=== PATIENT | male | born 1945 | race African-American/Black ===

== ENCOUNTER 2016-07-23 17:48 | Inpatient (IN) | payer MEDICARE ==
[~2016-07-23] VITALS: Ht 177.8 cm; Wt 78.0 kg
[~2016-07-23 17:48] MED LIST: ACETAMINOPHEN-1 EAC1 ORAL; ENALAPRIL MALEA10 MG ORAL; GEMFIBROZIL600 MG ORAL; LOVASTATIN20 MG ORAL; METFORMIN HCL1000 M1 ORAL; OXYCODONE HCL15 M1 ORAL
[2016-07-23 18:23] VITALS: BP 173/100
[2016-07-23 19:06] LABS: BASOPHILS % (AUTO) 1.3 % (0.0-2.0); EOSINOPHILS % (AUTO) 0.8 % (0.0-3.0); LYMPHOCYTES % (AUTO) 14.2 % (20.0-45.0); MEAN CORPUSCULAR HEMOGLOBIN 28.8 PG (27.0-31.0); MEAN CORPUSCULAR HGB CONC 31.5 G/DL (32.0-36.0); MEAN CORPUSCULAR VOLUME 92 FL (80-99); MEAN PLATELET VOLUME 6.3 FL (6.5-10.1); MONOCYTES % (AUTO) 6.9 % (1.0-10.0); NEUTROPHILS % (AUTO) 76.9 % (45.0-75.0); PLATELET COUNT 181 K/UL (150-450); RED CELL DISTRIBUTION WIDTH 14.2 % (11.6-14.8); WHITE BLOOD COUNT 6.5 K/UL (4.8-10.8)
[2016-07-23 19:21] LABS: TROPONIN I < 0.30 ng/mL (<=0.30)
[2016-07-23 19:24] LABS: ALANINE AMINOTRANSFERASE 59 U/L (3-41); ALBUMIN/GLOBULIN RATIO 0.6 (1.0-2.7); ANION GAP 14 (5-15); ASPARTATE AMINO TRANSFERASE 96 U/L (5-40); CALCIUM 8.9 mg/dL (8.6-10.2); CARBON DIOXIDE 23 mEQ/L (20-30); CHLORIDE 100 mEQ/L (98-107); CREATININE 1.9 mg/dL (0.7-1.2); HEMOLYSIS 20; POTASSIUM 5.8 mEQ/L (3.4-4.9); SODIUM 137 mEQ/L (135-145); TOTAL PROTEIN 6.9 g/dL (6.6-8.7)
[2016-07-23 19:36] LABS: CKMB 2.4 ng/mL (< 6.7)
[2016-07-23] MEDS ORDERED: Calcium Gluconate 1gm/10ml vial IVP ONE (20:00)
[2016-07-23] MEDS ORDERED: Sodium Polystyrene Sulfonate 15gm Powder ORAL ONE (20:00)
--- NOTE | 2016-07-23 20:05 | Emergency Room Report ---
History of Present Illness General Chief Complaint: Generalized Weakness Source: Patient (GUERDA TIPTON M.D.) Present Illness HPI 71-year-old male presents to ED for weakness. States the last month he's been feeling increasingly more weak. States he feels too weak to get up at times. States he had a hard time getting out of bed this morning. Denies any chest pain or shortness of breath. Denies any fevers or chills. States he is eating well and drinking well. History of hep C but is currently not started on medication yet. No other aggravating or relieving factors. Denies any other associated symptoms (GUERDA TIPTON M.D.) Allergies: Coded Allergies: PENICILLINS (Verified Allergy, Intermediate, 12/06/15) Patient History Past Medical History: DM, other - Hep C Past Surgical History: none Pertinent Family History: none Social History: Denies: alcohol use, drug use, smoking Immunizations: UTD Reviewed Nursing Documentation: PMH: Agreed, PSxH: Agreed (GUERDA TIPTON M.D.) Nursing Documentation-PMH Hx Cardiac Problems: No Hx Diabetes: Yes Hx Cancer: No Hx Gastrointestinal Problems: Yes - HEP C, HEPATOMEGALLY Hx Neurological Problems: No (GUERDA TIPTON M.D.) Review of Systems All Other Systems: negative except mentioned in HPI (GUERDA TIPTON M.D.) Physical Exam Vital Signs Date Time Temp Pulse Resp B/P Pulse Ox O2 Delivery O2 Flow Rate FiO2 07/23/16 18:11 97.3 108 20 168/97 99 Room Air Sp02 EP Interpretation: reviewed, normal General Appearance: no apparent distress, alert, GCS 15, non-toxic Head: normocephalic, atraumatic Eyes: bilateral eye PERRL, bilateral eye normal inspection ENT: hearing grossly normal, normal pharynx, no angioedema, normal voice Neck: full range of motion, supple/symm/no masses Respiratory: chest non-tender, lungs clear, normal breath sounds, speaking full sentences Cardiovascular #1: regular rate, rhythm, no edema Cardiovascular #2: 2+ carotid (R), 2+ carotid (L), 2+ radial (R), 2+ radial (L) , 2+ dorsalis pedis (R), 2+ dorsalis pedis (L) Gastrointestinal: normal bowel sounds, non tender, soft, non-distended, no guarding, no rebound Rectal: deferred Genitourinary: normal inspection, no CVA tenderness Musculoskeletal: back normal, gait/station normal, normal range of motion, non- tender Neurologic: alert, oriented x3, responsive, motor strength/tone normal, sensory intact, speech normal Psychiatric: judgement/insight normal, memory normal, mood/affect normal, no suicidal/homicidal ideation Reflexes: 3+ bicep (R), 3+ bicep (L), 3+ tricep (R), 3+ tricep (L), 3+ knee (R) , 3+ knee (L) Skin: normal color, no rash, warm/dry, well hydrated Lymphatic: no adenopathy (GUERDA TIPTON M.D.) Medical Decision Making Diagnostic Impression: Primary Impression: Hyperkalemia, diminished renal excretion Additional Impressions: ARF (acute renal failure) Qualified Codes: N17.9 - Acute kidney failure, unspecified CHF (congestive heart failure) Qualified Codes: I50.9 - Heart failure, unspecified Labs Test 07/23/16 18:50 White Blood Count 6.5 K/UL (4.8-10.8) Red Blood Count 5.00 M/UL (4.70-6.10) Hemoglobin 14.4 G/DL (14.2-18.0) Hematocrit 45.7 % (42.0-52.0) Mean Corpuscular Volume 92 FL (80-99) Mean Corpuscular Hemoglobin 28.8 PG (27.0-31.0) Mean Corpuscular Hemoglobin Concent 31.5 G/DL (32.0-36.0) Red Cell Distribution Width 14.2 % (11.6-14.8) Platelet Count 181 K/UL (150-450) Mean Platelet Volume 6.3 FL (6.5-10.1) Neutrophils (%) (Auto) 76.9 % (45.0-75.0) Lymphocytes (%) (Auto) 14.2 % (20.0-45.0) Monocytes (%) (Auto) 6.9 % (1.0-10.0) Eosinophils (%) (Auto) 0.8 % (0.0-3.0) Basophils (%) (Auto) 1.3 % (0.0-2.0) Sodium Level 137 mEQ/L (135-145) Potassium Level 5.8 mEQ/L (3.4-4.9) Chloride Level 100 mEQ/L (98-107) Carbon Dioxide Level 23 mEQ/L (20-30) Anion Gap 14 (5-15) Blood Urea Nitrogen 40 mg/dL (7-23) Creatinine 1.9 mg/dL (0.7-1.2) Estimat Glomerular Filtration Rate mL/min (>60) Glucose Level 171 mg/dL (74-106) Calcium Level 8.9 mg/dL (8.6-10.2) Total Bilirubin 0.4 mg/dL (0.0-1.2) Aspartate Amino Transf (AST/SGOT) 96 U/L (5-40) Alanine Aminotransferase (ALT/SGPT) 59 U/L (3-41) Alkaline Phosphatase 423 U/L (40-129) Total Creatine Kinase 41 U/L (38-174) Creatine Kinase MB 2.4 ng/mL (< 6.7) Creatine Kinase MB Relative Index 5.8 Troponin I < 0.30 ng/mL (<=0.30) Pro-B-Type Natriuretic Peptide 3655 pg/mL (0-125) Total Protein 6.9 g/dL (6.6-8.7) Albumin 2.8 g/dL (3.5-5.2) Globulin 4.1 g/dL Albumin/Globulin Ratio 0.6 (1.0-2.7) (GUERDA TIPTON M.D.) ER Course pt s/o to me. He presented with weakness. labs significant for JERARDO, hyperkalemia. pt approved for admission here. I contacted Dr. Herbert for admission. (LAKIA ZARAGOZA M.D.) EKG Diagnostic Results EKG Time: 20:04 Rate: normal Rhythm: NSR ST Segments: other - peaked t waves ASA given to the pt in ED: No (GUERDA TIPTON M.D.) Rhythm Strip Diag. Results EP Interpretation: yes Rhythm: NSR, no PVC's, no ectopy (GUERDA TIPTON M.D.) Chest X-Ray Diagnostic Results Chest X-Ray Ordered: Yes # of Views/Limited/Complete: 1 View Interpretation: no consolidation, no effusion, no pneumothorax, no acute cardiopulmonary disease Indication: Other - weakness Impression: No acute disease Date Electronically Signed: Jul 23, 2016 Time Electronically Signed: 20:04 (GUERDA TIPTON M.D.) Last Vital Signs Date Time Temp Pulse Resp B/P Pulse Ox O2 Delivery O2 Flow Rate FiO2 07/23/16 18:23 97.3 102 23 173/100 99 Room Air Status: improved (GUERDA TIPTON M.D.) Disposition: ADMITTED INPATIENT Condition: Serious Referrals: NON PHYSICIAN (PCP) GUERDA TIPTON M.D. Jul 23, 2016 20:05 LAKIA ZARAGOZA M.D. Jul 23, 2016 20:41
[2016-07-23 20:23] VITALS: BP 178/89
[2016-07-23 22:10] VITALS: BP 12/88
[2016-07-23 22:20] VITALS: BP 175/80
[2016-07-23] MEDS ORDERED: Zolpidem 5mg tab ORAL PRN (22:45)
[2016-07-24] VITALS: BP 151/90
[2016-07-24 04:00] VITALS: BP 156/94
[2016-07-24] MEDS: NovoLOG Insulin Flexpen SUBQ SCH ×4 (06:13→21:05)
[2016-07-24 08:00] VITALS: BP 141/71
[2016-07-24 08:24] LABS: BASOPHILS % (AUTO) 1.3 % (0.0-2.0); EOSINOPHILS % (AUTO) 0.9 % (0.0-3.0); LYMPHOCYTES % (AUTO) 13.4 % (20.0-45.0); MEAN CORPUSCULAR HEMOGLOBIN 28.2 PG (27.0-31.0); MEAN CORPUSCULAR HGB CONC 31.3 G/DL (32.0-36.0); MEAN CORPUSCULAR VOLUME 90 FL (80-99); MEAN PLATELET VOLUME 6.6 FL (6.5-10.1); NEUTROPHILS % (AUTO) 77.5 % (45.0-75.0); PLATELET COUNT 198 K/UL (150-450); RED BLOOD COUNT 4.32 M/UL (4.70-6.10); RED CELL DISTRIBUTION WIDTH 14.3 % (11.6-14.8); WHITE BLOOD COUNT 6.5 K/UL (4.8-10.8)
[2016-07-24] MEDS ORDERED: 1/2 NS 1000ml IV ONE (08:36)
[2016-07-24 08:45] LABS: ANION GAP 15 (5-15); CALCIUM 8.7 mg/dL (8.6-10.2); CARBON DIOXIDE 22 mEQ/L (20-30); CHLORIDE 98 mEQ/L (98-107); CREATININE 1.6 mg/dL (0.7-1.2); HEMOLYSIS 1; POTASSIUM 4.5 mEQ/L (3.4-4.9); SODIUM 135 mEQ/L (135-145)
[2016-07-24 09:23] LABS: APPEARANCE,URINE CLEAR; KETONES,URINE NEGATIVE (NEGATIVE); LEUKOCYTE ESTERASE ,URINE NEGATIVE (NEGATIVE); NITRITE,URINE NEGATIVE (NEGATIVE); PH,URINE 5 (4.5-8.0); PROTEIN,URINE 4+ (NEGATIVE); UROBILINOGEN,URINE NORMAL MG/DL (0.0-1.0)
[2016-07-24 09:42] LABS: AMORPHOUS SEDIMENT,UR OCCASIONAL /LPF; BACTERIA,URINE FEW /HPF; RBC,URINE 0-2 /HPF (0 - 0); SQUAMOUS EPITHELIAL CELL,UR OCCASIONAL /LPF (NONE/OCC); WBC,URINE 0-2 /HPF (0 - 0)
[2016-07-24] MEDS: Heparin 5000 units/ml inj SUBQ SCH ×2 (09:54→21:06)
--- NOTE | 2016-07-24 10:47 | Diagnostic Imaging Report ---
Indication: Chest Pain Comparison: None A single view chest radiograph was obtained. Findings: Cardiomediastinal appearance is within normal limits for age. Pulmonary vascularity is appropriate. The diaphragmatic contour is smooth and costophrenic angles are sharp. No pleural effusions are identified. The bones are osteopenic. Impression: No acute findings
[2016-07-24 11:40] VITALS: BP 144/80
[2016-07-24 16:00] VITALS: BP 163/86
[2016-07-24 19:53] VITALS: BP 163/83
[2016-07-24] MEDS: HYDROmorphone 2mg tab ORAL PRN (20:55)
--- NOTE | 2016-07-24 22:22 | History and Physical ---
History of Present Illness General Date patient seen: Jul 24, 2016 Reason for Hospitalization: Generalized Weakness Present Illness HPI 71-year-old male with PMH for DM and Hepatitis C who presented to the ED c/o weakness. He states the last month he's been feeling increasingly more weak. He reported that he had a hard time getting out of bed yesterday morning. Denies any chest pain or shortness of breath. Denies any fevers or chills. Denies any changes in appetite. No other aggravating or relieving factors. Denies any other associated symptoms. In the ED, he had some renal insufficiency and hyperkalemia. He was admitted for further management. Allergies: Coded Allergies: PENICILLINS (Verified Allergy, Intermediate, 12/06/15) Medication History Scheduled Enalapril Maleate* (Enalapril Maleate*), 10 MG ORAL DAILY, (Reported) Gemfibrozil (Gemfibrozil*), 600 MG ORAL TWICE A DAY, (Reported) Lovastatin (Lovastatin), 20 MG ORAL BEDTIME, (Reported) Metformin Hcl* (Metformin Hcl*), 1,000 MG ORAL TWICE A DAY, (Reported) Scheduled PRN Acetaminophen With Codeine (T#3) (Tylenol #3 Tab*), 1 TAB ORAL BID PRN for For Pain, (Reported) Patient History History Provided By: Patient Healthcare decision maker Resuscitation status Full Code Advanced Directive on File No Past Medical/Surgical History Past Medical/Surgical History: (1) DM (diabetes mellitus) Review of Systems All Other Systems: negative except mentioned in HPI Physical Exam General Appearance: WD/WN, no apparent distress HEENT: normocephalic, atraumatic Neck: supple Respiratory/Chest: lungs clear Cardiovascular/Chest: normal rate, regular rhythm Abdomen: non tender, soft Extremities: no edema Neurologic: alert, oriented x 3 Last 24 Hour Vital Signs Date Time Temp Pulse Resp B/P Pulse Ox O2 Delivery O2 Flow Rate FiO2 07/24/16 20:00 97 07/24/16 19:53 97.5 97 20 163/83 99 Room Air 07/24/16 17:05 163/86 07/24/16 16:00 97.9 98 18 163/86 100 Room Air 07/24/16 16:00 101 07/24/16 11:40 97.5 99 18 144/80 Room Air 07/24/16 11:21 102 07/24/16 09:00 141/71 07/24/16 08:00 96.8 101 18 141/71 Room Air 07/24/16 08:00 101 07/24/16 04:00 103 07/24/16 04:00 97.9 106 20 156/94 Room Air 07/24/16 00:00 106 07/24/16 00:00 98.2 107 18 151/90 100 Nasal Cannula 2.0 07/23/16 22:30 103 Intake and Output 07/23/16 07/24/16 19:00 07:00 Intake Total 240 ml 725 ml Output Total 1500 ml Balance 240 ml -775 ml Intake Oral 240 ml IV Total 525 ml Other 200 ml Output Urine Total 1500 ml # Bowel Movements 1 Laboratory Tests Test 07/24/16 00:00 07/24/16 07:40 Urine Color Yellow Urine Appearance Clear Urine pH 5 (4.5-8.0) Urine Specific [place] 1.020 (1.005-1.035) Urine Protein 4+ (NEGATIVE) H Urine Glucose (UA) 2+ (NEGATIVE) H Urine Ketones Negative (NEGATIVE) Urine Occult Blood Negative (NEGATIVE) Urine Nitrite Negative (NEGATIVE) Urine Bilirubin Negative (NEGATIVE) Urine Urobilinogen Normal MG/DL (0.0-1.0) Urine Leukocyte Esterase Negative (NEGATIVE) Urine RBC 0-2 /HPF (0 - 0) H Urine WBC 0-2 /HPF (0 - 0) Urine Squamous Epithelial Cells Occasional /LPF Urine Amorphous Sediment Occasional /LPF (NONE) Urine Bacteria Few /HPF (NONE) Urine Opiates Screen Positive (NEGATIVE) H Urine Barbiturates Screen Negative (NEGATIVE) Phencyclidine (PCP) Screen Negative (NEGATIVE) Urine Amphetamines Screen Negative (NEGATIVE) Urine Benzodiazepines Screen Negative (NEGATIVE) Urine Cocaine Screen Negative (NEGATIVE) Urine Marijuana (THC) Screen Negative (NEGATIVE) White Blood Count 6.5 K/UL (4.8-10.8) Red Blood Count 4.32 M/UL (4.70-6.10) L Hemoglobin 12.2 G/DL (14.2-18.0) L Hematocrit 38.9 % (42.0-52.0) L Mean Corpuscular Volume 90 FL (80-99) Mean Corpuscular Hemoglobin 28.2 PG (27.0-31.0) Mean Corpuscular Hemoglobin Concent 31.3 G/DL (32.0-36.0) L Red Cell Distribution Width 14.3 % (11.6-14.8) Platelet Count 198 K/UL (150-450) Mean Platelet Volume 6.6 FL (6.5-10.1) Neutrophils (%) (Auto) 77.5 % (45.0-75.0) H Lymphocytes (%) (Auto) 13.4 % (20.0-45.0) L Monocytes (%) (Auto) 7.0 % (1.0-10.0) Eosinophils (%) (Auto) 0.9 % (0.0-3.0) Basophils (%) (Auto) 1.3 % (0.0-2.0) Sodium Level 135 mEQ/L (135-145) Potassium Level 4.5 mEQ/L (3.4-4.9) Chloride Level 98 mEQ/L (98-107) Carbon Dioxide Level 22 mEQ/L (20-30) Anion Gap 15 (5-15) Blood Urea Nitrogen 38 mg/dL (7-23) H Creatinine 1.6 mg/dL (0.7-1.2) H Estimat Glomerular Filtration Rate mL/min (>60) Glucose Level 166 mg/dL (74-106) H Calcium Level 8.7 mg/dL (8.6-10.2) Thyroid Stimulating Hormone (TSH) 1.030 uIU/mL (0.300-4.500) Height (Feet): 5 Height (Inches): 10.00 Weight (Pounds): 159 Medications Current Medications Medications (Trade) Dose Ordered Sig/Cammy Route PRN Reason Start Time Stop Time Status Last Admin Dose Admin Acetaminophen (Tylenol) 650 mg Q4H PRN ORAL Mild Pain (Pain Scale 1-3) 07/23/16 22:45 08/22/16 22:44 Dextrose (Dextrose 50%) STAT PRN IV Hypoglycemia 07/23/16 22:45 08/22/16 22:44 Diphenhydramine HCl (Benadryl) 25 mg Q6H PRN ORAL Itching/Pruritis 07/23/16 22:45 08/22/16 22:44 Enalapril Maleate (Vasotec) 10 mg BID ORAL 07/24/16 09:00 08/23/16 08:59 07/24/16 17:05 Gemfibrozil 600 mg 600 mg TWICE A DAY ORAL 07/24/16 09:00 08/23/16 08:59 07/24/16 17:05 Heparin Sodium (Porcine) (Heparin 5000 units/ml) 5,000 units EVERY 12 HOURS SUBQ 07/24/16 09:00 08/23/16 08:59 07/24/16 21:06 Hydromorphone HCl (Dilaudid) 2 mg Q6HR PRN ORAL for severe pain 07/24/16 20:45 07/31/16 20:44 07/24/16 20:55 Insulin Aspart (NovoLOG) BEFORE MEALS AND HS SUBQ 07/24/16 06:30 08/23/16 06:29 07/24/16 21:05 Losartan Potassium (Cozaar) 50 mg Q12H PRN ORAL For High Blood Pressure 07/24/16 07:15 08/23/16 07:14 Ondansetron HCl (Zofran) 4 mg Q6H PRN IVP Nausea & Vomiting 07/23/16 22:45 08/22/16 22:44 Sodium Chloride (0.45% NS 1000ml) 1,000 ml @ 75 mls/hr [id number] IV 07/23/16 22:45 08/22/16 22:44 07/24/16 12:41 Zolpidem Tartrate (Ambien) 5 mg DAILYPRN PRN ORAL Insomnia 07/23/16 22:45 08/22/16 22:44 Assessment/Plan Problem List: (1) DM (diabetes mellitus) ICD Codes: E11.9 - Type 2 diabetes mellitus without complications SNOMED: 37315360 (2) Hyperkalemia, diminished renal excretion ICD Codes: E87.5 - Hyperkalemia SNOMED: 96070155 (3) ARF (acute renal failure) ICD Codes: N17.9 - Acute kidney failure, unspecified SNOMED: 22327466 Qualifiers: Qualified Codes: N17.9 - Acute kidney failure, unspecified (4) CHF (congestive heart failure) Assessment & Plan: ??? elev BNP. f/u CXR. ICD Codes: I50.9 - Heart failure, unspecified SNOMED: 73860361 Qualifiers: Qualified Codes: I50.9 - Heart failure, unspecified Assessment/Plan Cardio eval. IVF. Monitor renal function. ABD U/S to eval liver given hx of hep C and elev LFT's. Accucheck with SSI. DVT ppx. Resume home meds. Hold metformin due to elev Cr. EV NG Jul 24, 2016 22:22
[2016-07-24 23:27] LABS: ALANINE AMINOTRANSFERASE 58 U/L (3-41); ALBUMIN/GLOBULIN RATIO 0.6 (1.0-2.7); ANION GAP 17 (5-15); ASPARTATE AMINO TRANSFERASE 100 U/L (5-40); CALCIUM 8.3 mg/dL (8.6-10.2); CARBON DIOXIDE 20 mEQ/L (20-30); CHLORIDE 98 mEQ/L (98-107); CREATININE 1.6 mg/dL (0.7-1.2); HEMOLYSIS 3; POTASSIUM 4.5 mEQ/L (3.4-4.9); SODIUM 135 mEQ/L (135-145); TOTAL PROTEIN 5.9 g/dL (6.6-8.7)
[2016-07-25] VITALS (7 sets, daily range): BP systolic 133–174; BP diastolic 83–95
[2016-07-25] MEDS: NovoLOG Insulin Flexpen SUBQ SCH ×4 (06:30→19:58)
[2016-07-25] MEDS: Heparin 5000 units/ml inj SUBQ SCH ×2 (08:09→19:59)
[2016-07-25] MEDS: HYDROmorphone 2mg tab ORAL PRN (19:46)
[2016-07-25] MEDS: Losartan 50mg tab ORAL PRN (19:47)
--- NOTE | 2016-07-25 21:44 | Nephrology Progress Note ---
Assessment/Plan Problem List: (1) CHF (congestive heart failure) (2) Anemia (3) DM (diabetes mellitus) (4) ARF (acute renal failure) (5) Ascites (6) Cirrhosis (7) Cholelithiasis Plan GI consult Avoid nephrotoxic agents Monitor renal function Adequate urine output Monitor lytes, correct PRN DVT prophylaxis with heparin Continue current treatment Monitor vitals Pain mgt AM labs Subjective Constitutional: Denies: chills, diaphoresis, fever, malaise, no symptoms, other , weakness HEENT: Denies: blurred vision, double vision, ear discharge, ear pain, eye pain , mouth pain, mouth swelling, no symptoms, nose congestion, nose pain, other, tearing, throat pain, throat swelling Genitourinary: Denies: burning, discharge, flank pain, frequency, hematuria, incontinence, no symptoms, other, pain, urgency Neurologic/Psychiatric: Denies: anxiety, depressed, emotional problems, headache, no symptoms, numbness, other, paresthesia, pre-existing deficit, seizure, tingling, tremors, weakness Subjective In bed, in no apparent distress, denies discomfort at this time Objective Objective Last 24 Hour Vital Signs Date Time Temp Pulse Resp B/P Pulse Ox O2 Delivery O2 Flow Rate FiO2 07/25/16 20:02 97.5 94 18 174/95 99 Room Air 07/25/16 20:00 100 07/25/16 19:47 174/95 07/25/16 17:27 146/86 07/25/16 16:00 103 07/25/16 15:24 96.3 101 20 146/86 100 Room Air 07/25/16 13:00 133/83 07/25/16 12:00 100 07/25/16 11:28 97.2 97 20 172/90 97 Room Air 07/25/16 08:08 157/84 07/25/16 08:00 94 07/25/16 07:51 96.7 98 20 157/84 100 Room Air 07/25/16 04:17 98.1 98 20 165/89 100 Room Air 07/25/16 04:00 99 07/25/16 00:27 98.0 99 20 169/93 99 Room Air 07/25/16 00:00 96 Intake and Output 07/24/16 07/25/16 19:00 07:00 Intake Total 1392.5 ml Output Total 860 ml 500 ml Balance 532.5 ml -500 ml Intake Oral 680 ml IV Total 712.5 ml Output Urine Total 860 ml 500 ml # Voids 4 2 Laboratory Tests 07/24/16 22:45: Sodium Level 135, Potassium Level 4.5, Chloride Level 98, Carbon Dioxide Level 20, Anion Gap 17H, Blood Urea Nitrogen 41H, Creatinine 1.6H, Estimat Glomerular Filtration Rate , Glucose Level 149H, Calcium Level 8.3L, Total Bilirubin 0.4, Aspartate Amino Transf (AST/SGOT) 100H, Alanine Aminotransferase (ALT/SGPT) 58H , Alkaline Phosphatase 399H, Total Protein 5.9L, Albumin 2.3L, Globulin 3.6, Albumin/Globulin Ratio 0.6L Height (Feet): 5 Height (Inches): 10.00 Weight (Pounds): 164 General Appearance: no apparent distress EENT: normal ENT inspection Neck: normal alignment, supple Cardiovascular: normal rate, regular rhythm Respiratory/Chest: lungs clear Abdomen: hypoactive bowel sounds, distended Extremities: no calf tenderness Neurologic: alert, oriented x 3, responsive, normal mood/affect Paige Bhardwaj N.P. Jul 25, 2016 21:44
--- NOTE | 2016-07-25 23:48 | Nephrology Progress Note ---
Assessment/Plan Problem List: (1) DM (diabetes mellitus) (2) Hyperkalemia, diminished renal excretion (3) ARF (acute renal failure) (4) CHF (congestive heart failure) Assessment: ??? elev BNP. f/u CXR. Objective Objective Last 24 Hour Vital Signs Date Time Temp Pulse Resp B/P Pulse Ox O2 Delivery O2 Flow Rate FiO2 07/25/16 20:02 97.5 94 18 174/95 99 Room Air 07/25/16 20:00 100 07/25/16 19:47 174/95 07/25/16 17:27 146/86 07/25/16 16:00 103 07/25/16 15:24 96.3 101 20 146/86 100 Room Air 07/25/16 13:00 133/83 07/25/16 12:00 100 07/25/16 11:28 97.2 97 20 172/90 97 Room Air 07/25/16 08:08 157/84 07/25/16 08:00 94 07/25/16 07:51 96.7 98 20 157/84 100 Room Air 07/25/16 04:17 98.1 98 20 165/89 100 Room Air 07/25/16 04:00 99 07/25/16 00:27 98.0 99 20 169/93 99 Room Air 07/25/16 00:00 96 Intake and Output 07/24/16 07/25/16 19:00 07:00 Intake Total 1392.5 ml Output Total 860 ml 500 ml Balance 532.5 ml -500 ml Intake Oral 680 ml IV Total 712.5 ml Output Urine Total 860 ml 500 ml # Voids 4 2 Height (Feet): 5 Height (Inches): 10.00 Weight (Pounds): 164 EV NG Jul 25, 2016 23:48
[2016-07-26 00:02] VITALS: BP 179/95
[2016-07-26 04:04] VITALS: BP 173/96
[2016-07-26] MEDS: NovoLOG Insulin Flexpen SUBQ SCH ×4 (06:21→20:35)
[2016-07-26 07:31] LABS: BASOPHILS % (AUTO) 1.3 % (0.0-2.0); EOSINOPHILS % (AUTO) 1.2 % (0.0-3.0); LYMPHOCYTES % (AUTO) 16.2 % (20.0-45.0); MEAN CORPUSCULAR HEMOGLOBIN 28.7 PG (27.0-31.0); MEAN CORPUSCULAR HGB CONC 31.8 G/DL (32.0-36.0); MEAN CORPUSCULAR VOLUME 90 FL (80-99); MEAN PLATELET VOLUME 6.7 FL (6.5-10.1); MONOCYTES % (AUTO) 7.9 % (1.0-10.0); NEUTROPHILS % (AUTO) 73.5 % (45.0-75.0); PLATELET COUNT 178 K/UL (150-450); RED BLOOD COUNT 4.44 M/UL (4.70-6.10); RED CELL DISTRIBUTION WIDTH 14.5 % (11.6-14.8); WHITE BLOOD COUNT 5.3 K/UL (4.8-10.8)
[2016-07-26 07:45] LABS: ANION GAP 13 (5-15); CALCIUM 8.8 mg/dL (8.6-10.2); CARBON DIOXIDE 22 mEQ/L (20-30); CHLORIDE 100 mEQ/L (98-107); CREATININE 1.5 mg/dL (0.7-1.2); HEMOLYSIS 2; POTASSIUM 5.3 mEQ/L (3.4-4.9); SODIUM 135 mEQ/L (135-145)
[2016-07-26 07:56] VITALS: BP 158/95
[2016-07-26] MEDS: Heparin 5000 units/ml inj SUBQ SCH ×2 (08:07→20:33)
--- NOTE | 2016-07-26 09:45 | Diagnostic Imaging Report ---
Indication: Abdominal distention, hepatitis C Technique: Corona-scale and duplex images of the upper abdomen were obtained Comparison: None Findings: There is a small amount of ascites fluid Gallbladder demonstrates gallstones. Gallbladder is nondistended. Gallbladder wall is thickened, measures 7 mm in thickness. Technologist reports sonographic Gonzalez's sign is positive, however. Common bile duct measures 5 mm in diameter. No intrahepatic biliary ductal dilatation. Liver demonstrates heterogeneous echogenicity with some surface nodularity. Is enlarged. A calcification is seen within the left hepatic lobe. Portal vein and hepatic veins are patent. Pancreas is unremarkable. The spleen is enlarged, measures 17 cm long axis dimension Left kidney measures 10.3 cm in length. Right kidney measures 10.4 cm length. Both kidneys demonstrate normal echogenicity. There is no hydronephrosis. There are bilateral renal cysts . Abdominal aorta is partially obscured by bowel gas, visualized portions are non-aneurysmal . Impression: Coarsened hepatic echogenicity, surface nodularity suggest cirrhosis. This is also described on prior CT scan of 12/06/2015 Ascites, likely related to the above Splenomegaly, likely secondary to portal hypertension related to the above Cholelithiasis. Gallbladder wall thickening is probably due to a combination of under distention and hemodynamic abnormalities causing ascites. However, technologist reports sonographic Gonzalez's sign is positive. This raises the possibility of acute cholecystitis. Consider nuclear medicine hepatobiliary scan for further evaluation if there is high clinical suspicion Bilateral renal cysts Note suboptimal visualization of the distal abdominal aorta
--- NOTE | 2016-07-26 10:19 | Diagnostic Imaging Report ---
Indications: Chest pain Technique: Portable AP chest Findings: Comparison: 07/23/2016 Inspiratory effort remains suboptimal. Linear densities persist in both lung bases. 4 cm ovoid opacity persists in the right infrahilar region. No new pulmonary parenchymal or pleural abnormalities are identified. Cardiomediastinal silhouette stable. IMPRESSION: Persistent ovoid opacity right infrahilar region may simply represent summation artifact. Lung mass or other overlying mass not excludable. Consider contrast-enhanced CT scan the thorax for further evaluation Stable pulmonary bibasal subsegmental atelectasis versus scarring No new abnormality identified
[2016-07-26] MEDS: HYDROmorphone 2mg tab ORAL PRN (11:03)
[2016-07-26 11:49] VITALS: BP 146/86
[2016-07-26 14:16] LABS: PROTHROMBIN TIME 10.2 SEC (9.30-11.50)
[2016-07-26 15:43] VITALS: BP 157/73
--- NOTE | 2016-07-26 16:00 | GI Initial Consult Note ---
Verito Darby N.PAnkit 07/26/16 1600: History of Present Illness General Date patient seen: Jul 26, 2016 Time patient seen: 13:00 Reason for Hospitalization: Generalized Weakness Referring physician: EV NG Reason for Consultation: CIRRHOSIS Present Illness HPI 71-year-old male presents to ED for weakness. States the last month he's been feeling increasingly more weak. States he feels too weak to get up at times. States he had a hard time getting out of bed this morning. Denies any chest pain or shortness of breath. Denies any fevers or chills. States he is eating well and drinking well. History of hep C but is currently not started on medication yet. No other aggravating or relieving factors. Denies any other associated symptoms. GI CONSULT. HPI as noted above. GI consulted for abnormal LFTs. Pt seen on floor, awake A&Ox4 NAD with no active s/sx of N/V/D. Pt presents today with hypoalbuminemia, abnormal LFTs, suggestive cirrhosis based on abdominal U/S with ascites. Hx of Hep C. The patient denies any use of ETOH for the past 20 + years. Abdomen is distended with noted ascites. According to the patient, she has been in the process to receive outpatient Hep C treatment. Recent colonoscopy performed at [facility]. Home Meds Reported Medications Acetaminophen With Codeine (T#3) (TYLENOL #3 TAB*) Y Tab, 1 TAB ORAL BID Y for For Pain, #30 TAB 12/08/15 Lovastatin (LOVASTATIN) 20 Mg Tablet, 20 MG ORAL BEDTIME, #30 TAB 0 Refills 12/06/15 Enalapril Maleate* (ENALAPRIL MALEATE*) 10 Mg Tablet, 10 MG ORAL DAILY, TAB 12/06/15 Gemfibrozil (GEMFIBROZIL*) 600 Mg Tablet, 600 MG ORAL TWICE A DAY, TAB 0 Refills 12/06/15 Metformin Hcl* (METFORMIN HCL*) 1,000 Mg Tablet, 1000 MG ORAL TWICE A DAY, TAB 12/06/15 Med list reviewed/reconciled: Yes Allergies: Coded Allergies: PENICILLINS (Verified Allergy, Intermediate, 12/06/15) Patient History History Provided By: Patient, Medical Record [facility] Narrative Past Medical History: DM, other - Hep C Past Surgical History: none Pertinent Family History: none Social History: Denies: alcohol use, drug use, smoking Immunizations: UTD Reviewed Nursing Documentation: PMH: Agreed, PSxH: Agreed Nursing Documentation-PMH Hx Cardiac Problems: No Hx Diabetes: Yes Hx Cancer: No Hx Gastrointestinal Problems: Yes - HEP C, HEPATOMEGALLY Hx Neurological Problems: No Review of Systems All Other Systems: negative except mentioned in HPI Physical Exam Vital Signs Date Time Temp Pulse Resp B/P Pulse Ox O2 Delivery O2 Flow Rate FiO2 07/23/16 18:11 97.3 108 20 168/97 99 Room Air 07/24/16 00:00 2.0 Sp02 EP Interpretation: reviewed Labs Laboratory Tests Test 07/26/16 06:45 07/26/16 13:49 White Blood Count 5.3 K/UL (4.8-10.8) Red Blood Count 4.44 M/UL (4.70-6.10) L Hemoglobin 12.7 G/DL (14.2-18.0) L Hematocrit 40.1 % (42.0-52.0) L Mean Corpuscular Volume 90 FL (80-99) Mean Corpuscular Hemoglobin 28.7 PG (27.0-31.0) Mean Corpuscular Hemoglobin Concent 31.8 G/DL (32.0-36.0) L Red Cell Distribution Width 14.5 % (11.6-14.8) Platelet Count 178 K/UL (150-450) Mean Platelet Volume 6.7 FL (6.5-10.1) Neutrophils (%) (Auto) 73.5 % (45.0-75.0) Lymphocytes (%) (Auto) 16.2 % (20.0-45.0) L Monocytes (%) (Auto) 7.9 % (1.0-10.0) Eosinophils (%) (Auto) 1.2 % (0.0-3.0) Basophils (%) (Auto) 1.3 % (0.0-2.0) Sodium Level 135 mEQ/L (135-145) Potassium Level 5.3 mEQ/L (3.4-4.9) H Chloride Level 100 mEQ/L (98-107) Carbon Dioxide Level 22 mEQ/L (20-30) Anion Gap 13 (5-15) Blood Urea Nitrogen 36 mg/dL (7-23) H Creatinine 1.5 mg/dL (0.7-1.2) H Estimat Glomerular Filtration Rate mL/min (>60) Glucose Level 179 mg/dL (74-106) H Calcium Level 8.8 mg/dL (8.6-10.2) Prothrombin Time 10.2 SEC (9.30-11.50) Prothromb Time International Ratio 1.0 (0.9-1.1) Activated Partial Thromboplast Time 31 SEC (23-33) General Appearance: well appearing, no apparent distress, alert Head: normocephalic EENT: normal ENT inspection Neck: supple Respiratory: normal breath sounds, no respiratory distress Cardiovascular: normal rate Gastrointestinal: soft, distended, ascites Rectal: deferred Genitourinary: no CVA tenderness Musculoskeletal: back normal Neurologic: alert, oriented x3, responsive Psychiatric: normal inspection, judgement/insight normal Skin: normal inspection, normal color, no rash, warm/dry Lymphatic: normal inspection, no adenopathy Current Medications Current Medications Medications (Trade) Dose Ordered Sig/Cammy Route PRN Reason Start Time Stop Time Status Last Admin Dose Admin Acetaminophen (Tylenol) 650 mg Q4H PRN ORAL Mild Pain (Pain Scale 1-3) 07/23/16 22:45 08/22/16 22:44 Dextrose (Dextrose 50%) STAT PRN IV Hypoglycemia 07/23/16 22:45 08/22/16 22:44 Diphenhydramine HCl (Benadryl) 25 mg Q6H PRN ORAL Itching/Pruritis 07/23/16 22:45 08/22/16 22:44 Enalapril Maleate (Vasotec) 10 mg BID ORAL 07/24/16 09:00 08/23/16 08:59 07/26/16 08:05 Gemfibrozil 600 mg 600 mg TWICE A DAY ORAL 07/24/16 09:00 08/23/16 08:59 07/26/16 08:06 Heparin Sodium (Porcine) (Heparin 5000 units/ml) 5,000 units EVERY 12 HOURS SUBQ 07/24/16 09:00 08/23/16 08:59 07/26/16 08:07 Hydromorphone HCl (Dilaudid) 2 mg Q6HR PRN ORAL for severe pain 07/24/16 20:45 07/31/16 20:44 07/26/16 11:03 Insulin Aspart (NovoLOG) BEFORE MEALS AND HS SUBQ 07/24/16 06:30 08/23/16 06:29 07/26/16 12:12 Losartan Potassium (Cozaar) 50 mg Q12H PRN ORAL For High Blood Pressure 07/24/16 07:15 08/23/16 07:14 07/25/16 19:47 Nicotine (Nicoderm) 1 patch Q24H TDERMAL 07/26/16 16:00 08/25/16 15:59 Ondansetron HCl (Zofran) 4 mg Q6H PRN IVP Nausea & Vomiting 07/23/16 22:45 08/22/16 22:44 Sodium Chloride (0.45% NS 1000ml) 1,000 ml @ 75 mls/hr [id number] IV 07/23/16 22:45 08/22/16 22:44 07/26/16 04:44 Zolpidem Tartrate (Ambien) 5 mg DAILYPRN PRN ORAL Insomnia 07/23/16 22:45 08/22/16 22:44 GI: Plan Problems: (1) Hepatitis C (2) Cirrhosis (3) Ascites (4) Anemia (5) DM (diabetes mellitus) (6) Hypoalbuminemia Plan abdominal U/S reviewed >> suggest cirrhosis. Ascites. Sonographic Gonzalez's sign is positive. This raises the possibility of acute cholecystitis. Hx of Hep C ordered paracentesis, r/o SBP - Albumin 25% x 1 one hour prior to paracentesis ordered AFP, ammonia levels for tomorrow fu serum albumin, body fluid albumin to calculate SAAG hold Lasix and Aldactone for now given creatinine fu labs patient needs PCP referral to GI specialist for Hep C tx given HMO Discussed wit Dr. Adame. Thank you for referring this patient, we will follow. CHANDLER ADAME 07/27/16 1004: History of Present Illness General Reason for Hospitalization: Generalized Weakness Present Illness Home Meds Reported Medications Acetaminophen With Codeine (T#3) (TYLENOL #3 TAB*) Y Tab, 1 TAB ORAL BID Y for For Pain, #30 TAB 12/08/15 Lovastatin (LOVASTATIN) 20 Mg Tablet, 20 MG ORAL BEDTIME, #30 TAB 0 Refills 12/06/15 Enalapril Maleate* (ENALAPRIL MALEATE*) 10 Mg Tablet, 10 MG ORAL DAILY, TAB 12/06/15 Gemfibrozil (GEMFIBROZIL*) 600 Mg Tablet, 600 MG ORAL TWICE A DAY, TAB 0 Refills 12/06/15 Metformin Hcl* (METFORMIN HCL*) 1,000 Mg Tablet, 1000 MG ORAL TWICE A DAY, TAB 12/06/15 Allergies: Coded Allergies: PENICILLINS (Verified Allergy, Intermediate, 12/06/15) GI: Plan Plan The patient was seen and examined at bedside and all new and available data was reviewed in the patients chart. I agree with the above findings, impression and plan. (Patient seen earlier today. Signature stamp does not reflect patient encounter time.). -Mone Ybarra MDh Tomas Brewer Jul 26, 2016 16:00 CHANDLER ADAME Jul 27, 2016 10:04
[2016-07-26 20:00] VITALS: BP 149/85
--- NOTE | 2016-07-26 22:09 | Nephrology Progress Note ---
Assessment/Plan Problem List: (1) DM (diabetes mellitus) (2) Hyperkalemia, diminished renal excretion (3) ARF (acute renal failure) (4) CHF (congestive heart failure) Assessment: ??? elev BNP. f/u CXR. (5) Cirrhosis (6) Ascites (7) Hypoalbuminemia (8) Hepatitis C (9) Cholelithiasis (10) Anemia Plan GI following. Pending paracentesis. Albumin being given . F?u GI recs. Needs outpt Hep C treatment per PCP once discharged. d/c IVF. monitor labs. Subjective Subjective no new c/o Objective Objective Last 24 Hour Vital Signs Date Time Temp Pulse Resp B/P Pulse Ox O2 Delivery O2 Flow Rate FiO2 07/26/16 20:00 97.9 106 18 149/85 98 Room Air 07/26/16 20:00 103 07/26/16 17:13 157/73 07/26/16 16:00 99 07/26/16 15:43 97.3 97 18 157/73 100 Room Air 07/26/16 12:00 99 07/26/16 11:49 97.3 97 18 146/86 99 Room Air 07/26/16 08:05 158/95 07/26/16 08:00 99 07/26/16 07:56 97.5 100 18 158/95 98 Room Air 07/26/16 04:04 97.7 98 18 173/96 97 Room Air 07/26/16 04:00 100 07/26/16 00:02 98.1 101 20 179/95 97 Room Air 07/26/16 00:00 101 Intake and Output 07/25/16 07/26/16 19:00 07:00 Intake Total 865 ml 1140 ml Output Total 400 ml Balance 865 ml 740 ml Intake Oral 490 ml 240 ml IV Total 375 ml 900 ml Output Urine Total 400 ml # Voids 1 Laboratory Tests 07/26/16 06:45: White Blood Count 5.3, Red Blood Count 4.44L, Hemoglobin 12.7L, Hematocrit 40.1L , Mean Corpuscular Volume 90, Mean Corpuscular Hemoglobin 28.7, Mean Corpuscular Hemoglobin Concent 31.8L, Red Cell Distribution Width 14.5, Platelet Count 178, Mean Platelet Volume 6.7, Neutrophils (%) (Auto) 73.5, Lymphocytes (%) (Auto) 16.2L, Monocytes (%) (Auto) 7.9, Eosinophils (%) (Auto) 1.2, Basophils (%) (Auto) 1.3, Sodium Level 135, Potassium Level 5.3H, Chloride Level 100, Carbon Dioxide Level 22, Anion Gap 13, Blood Urea Nitrogen 36H, Creatinine 1.5H, Estimat Glomerular Filtration Rate , Glucose Level 179H, Calcium Level 8.8 07/26/16 13:49: Prothrombin Time 10.2, Prothromb Time International Ratio 1.0, Activated Partial Thromboplast Time 31 Height (Feet): 5 Height (Inches): 10.00 Weight (Pounds): 164 General Appearance: no apparent distress Cardiovascular: normal rate, regular rhythm Respiratory/Chest: lungs clear Abdomen: soft, distended Extremities: trace edema Neurologic: alert, oriented x 3 EV NG Jul 26, 2016 22:09
[2016-07-27] VITALS: BP 163/110
[2016-07-27] MEDS: HYDROmorphone 2mg tab ORAL PRN ×2 (03:21→11:55)
[2016-07-27 04:00] VITALS: BP 164/93
[2016-07-27] MEDS: NovoLOG Insulin Flexpen SUBQ SCH ×4 (05:55→20:45)
[2016-07-27 07:52] VITALS: BP 174/89
[2016-07-27 07:58] LABS: BASOPHILS % (AUTO) 1.1 % (0.0-2.0); EOSINOPHILS % (AUTO) 1.4 % (0.0-3.0); LYMPHOCYTES % (AUTO) 13.2 % (20.0-45.0); MEAN CORPUSCULAR HEMOGLOBIN 28.4 PG (27.0-31.0); MEAN CORPUSCULAR HGB CONC 31.6 G/DL (32.0-36.0); MEAN CORPUSCULAR VOLUME 90 FL (80-99); MEAN PLATELET VOLUME 6.7 FL (6.5-10.1); MONOCYTES % (AUTO) 7.9 % (1.0-10.0); NEUTROPHILS % (AUTO) 76.4 % (45.0-75.0); PLATELET COUNT 182 K/UL (150-450); RED BLOOD COUNT 4.21 M/UL (4.70-6.10); RED CELL DISTRIBUTION WIDTH 14.4 % (11.6-14.8); WHITE BLOOD COUNT 5.6 K/UL (4.8-10.8)
[2016-07-27 08:16] LABS: AMMONIA 50 umol/L (16-60)
[2016-07-27 08:33] LABS: ALANINE AMINOTRANSFERASE 46 U/L (3-41); ALBUMIN/GLOBULIN RATIO 0.6 (1.0-2.7); ANION GAP 13 (5-15); ASPARTATE AMINO TRANSFERASE 75 U/L (5-40); CALCIUM 8.2 mg/dL (8.6-10.2); CARBON DIOXIDE 20 mEQ/L (20-30); CHLORIDE 102 mEQ/L (98-107); CREATININE 1.5 mg/dL (0.7-1.2); HEMOLYSIS 3; POTASSIUM 4.7 mEQ/L (3.4-4.9); SODIUM 135 mEQ/L (135-145); TOTAL PROTEIN 5.9 g/dL (6.6-8.7)
[2016-07-27] MEDS: Heparin 5000 units/ml inj SUBQ SCH ×2 (09:00→20:46)
--- NOTE | 2016-07-27 10:54 | GI Progress Note ---
Assessment/Plan Problems: (1) Hepatitis C ICD Codes: B19.20 - Unspecified viral hepatitis C without hepatic coma SNOMED: 19130767 (2) Hypoalbuminemia ICD Codes: E88.09 - Other disorders of plasma-protein metabolism, not elsewhere classified SNOMED: 525055783 (3) Cirrhosis ICD Codes: K74.60 - Unspecified cirrhosis of liver SNOMED: 27783152 (4) Ascites ICD Codes: R18.8 - Other ascites SNOMED: 794093901 (5) Cholelithiasis ICD Codes: K80.20 - Calculus of gallbladder without cholecystitis without obstruction SNOMED: 898884166 (6) Anemia ICD Codes: D64.9 - Anemia, unspecified SNOMED: 705307016 Status: unchanged Status Narrative Discussed with Dr. Gill. Assessment/Plan abdominal U/S reviewed >> suggest cirrhosis. Ascites. Sonographic Gonzalez's sign is positive. This raises the possibility of acute cholecystitis. Hx of Hep C ammonia WNL fu paracentesis, r/o SBP fu AFP fu serum albumin (2.3), body fluid albumin to calculate SAAG hold Lasix and Aldactone for now given elevated creatinine fu labs patient needs PCP referral to GI specialist for Hep C tx given HMO The patient was seen and examined at bedside and all new and available data was reviewed in the patients chart. I agree with the above findings, impression and plan. (Patient seen earlier today. Signature stamp does not reflect patient encounter time.). -Slick Gill MD Subjective Gastrointestinal/Abdominal: Reports: abdomen distended - ascites Objective Last 24 Hour Vital Signs Date Time Temp Pulse Resp B/P Pulse Ox O2 Delivery O2 Flow Rate FiO2 07/27/16 08:04 174/89 07/27/16 08:00 98 07/27/16 07:52 96.4 99 20 174/89 99 Room Air 07/27/16 04:38 114 07/27/16 04:00 97.7 108 19 164/93 99 Room Air 07/27/16 00:00 97.7 103 18 163/110 95 Room Air 07/27/16 00:00 107 07/26/16 20:00 97.9 106 18 149/85 98 Room Air 07/26/16 20:00 103 07/26/16 17:13 157/73 07/26/16 16:00 99 07/26/16 15:43 97.3 97 18 157/73 100 Room Air 07/26/16 12:00 99 07/26/16 11:49 97.3 97 18 146/86 99 Room Air Intake and Output 07/26/16 07/27/16 19:00 07:00 Intake Total 435 ml Balance 435 ml Intake Oral 360 ml IV Total 75 ml # Voids 1 Laboratory Tests Test 07/26/16 13:49 07/27/16 07:05 Prothrombin Time 10.2 SEC (9.30-11.50) Prothromb Time International Ratio 1.0 (0.9-1.1) Activated Partial Thromboplast Time 31 SEC (23-33) White Blood Count 5.6 K/UL (4.8-10.8) Red Blood Count 4.21 M/UL (4.70-6.10) L Hemoglobin 12.0 G/DL (14.2-18.0) L Hematocrit 37.9 % (42.0-52.0) L Mean Corpuscular Volume 90 FL (80-99) Mean Corpuscular Hemoglobin 28.4 PG (27.0-31.0) Mean Corpuscular Hemoglobin Concent 31.6 G/DL (32.0-36.0) L Red Cell Distribution Width 14.4 % (11.6-14.8) Platelet Count 182 K/UL (150-450) Mean Platelet Volume 6.7 FL (6.5-10.1) Neutrophils (%) (Auto) 76.4 % (45.0-75.0) H Lymphocytes (%) (Auto) 13.2 % (20.0-45.0) L Monocytes (%) (Auto) 7.9 % (1.0-10.0) Eosinophils (%) (Auto) 1.4 % (0.0-3.0) Basophils (%) (Auto) 1.1 % (0.0-2.0) Sodium Level 135 mEQ/L (135-145) Potassium Level 4.7 mEQ/L (3.4-4.9) Chloride Level 102 mEQ/L (98-107) Carbon Dioxide Level 20 mEQ/L (20-30) Anion Gap 13 (5-15) Blood Urea Nitrogen 42 mg/dL (7-23) H Creatinine 1.5 mg/dL (0.7-1.2) H Estimat Glomerular Filtration Rate mL/min (>60) Glucose Level 208 mg/dL (74-106) H Calcium Level 8.2 mg/dL (8.6-10.2) L Total Bilirubin 0.7 mg/dL (0.0-1.2) Aspartate Amino Transf (AST/SGOT) 75 U/L (5-40) H Alanine Aminotransferase (ALT/SGPT) 46 U/L (3-41) H Alkaline Phosphatase 402 U/L (40-129) H Ammonia 50 umol/L (16-60) Total Protein 5.9 g/dL (6.6-8.7) L Albumin 2.3 g/dL (3.5-5.2) L Globulin 3.6 g/dL Albumin/Globulin Ratio 0.6 (1.0-2.7) L Alpha Fetoprotein Pending Height (Feet): 5 Height (Inches): 10.00 Weight (Pounds): 166 General Appearance: no apparent distress, alert Cardiovascular: normal rate Respiratory/Chest: normal breath sounds, no respiratory distress Abdominal Exam: soft, distended, ascites Extremities: normal range of motion Verito Darby N.P. Jul 27, 2016 10:54 SLICK GILL Jul 28, 2016 13:04
[2016-07-27 11:28] VITALS: BP 179/89
--- NOTE | 2016-07-27 12:18 | Diagnostic Imaging Report ---
Clinical Indication: MASS, elevated BNP, hepatitis C, acute renal disease Technique: Spiral acquisitions obtained through the chest. No IV contrast utilized, due to renal insufficiency. Multiplanar reconstructions generated. Total dose length product 626 mGycm. CTDIvol(s) 18 mGy. Dose reduction achieved using automated exposure control Comparison: None Findings:There is a mass that appears to be arising from the posterior right seventh rib. This completely destroys the rib in the area of the mass. It measures approximately 4.6 cm transverse by 4.5 cm AP by 3.5 cm craniocaudad. It indents the pleura posteriorly. There are some internal calcifications. There does appear to be some associated thickening of the overlying pleura. There is trace pleural fluid present. There is also trace pleural fluid present on the left. There is questionable slight sclerosis of the right first rib. No other bony lesion demonstrated. There is atelectasis at both lung bases. There is a 3 mm calcified nodule in the periphery of the left upper lobe. No pulmonary parenchymal mass, infiltrate, nodule, or congestion demonstrated. There is a tiny focus of pleural thickening in the posterior left pleural space, image 20 of series 4. This measures 4 x 2 mm. Multiple nodules are seen throughout the thyroid, which is enlarged. Some of these are calcified. There is a triangular mass in the anterior mediastinum at the level of the distal ascending thoracic aorta which measures 18 x 13 mm. There are calcified nodes in the left hilum. No hilar mass or adenopathy demonstrated. The heart size is normal. There is no evidence of pericardial effusion. No axillary or chest wall mass or adenopathy. There is slight edema of the bilateral upper flank soft tissues. Limited images of the upper abdomen demonstrate hepatic surface nodularity. Calcifications are seen within the liver parenchyma. There are gallstones. The spleen is enlarged, extending beyond the imaging volume. It appears to have enlarged considerably since a previous abdominal pelvic CT scan of 12/06/2015. Multiple calcifications are seen within the splenic parenchyma. There are is interim development of a moderate amount of ascites. There is a right upper pole renal cyst demonstrated, also evident on prior abdominal CT . The lowest cut demonstrates pancreatic calcifications which were described on prior CT Impression: 4.6 x 4.5 x 3.5 cm mass centered in the posterior right seventh rib, with associated rib destruction. Appearance is is a nonspecific as regards etiology but highly suspicious for neoplasm. Presence of internal calcifications does raise possibility that this could represent metastatic mucinous adenocarcinoma but other metastatic or primary etiologies also possible Trace bilateral pleural effusions Minimal bilateral basilar pulmonary parenchymal atelectasis. No other significant pulmonary abnormality Equivocal slight sclerosis of the right first rib. If real, could indicate involvement by osteoblastic neoplasm Evidence of old granulomatous disease, including 3 mm left lung calcified nodule, calcified left hilar lymph nodes, and hepatic and splenic calcified granulomata. Tiny focus of pleural thickening on the left, probably post inflammatory Enlarged multinodular thyroid Ascites, new since prior abdominal pelvic CT scan of 12/06/2015 but reported on ultrasound of 07/24/2016 Evidence of hepatic cirrhosis, also previously described Splenomegaly, which appears to have progressed considerably since previous abdomen/ pelvis CT. Cholelithiasis, also previously described Incidental findings as noted, including right renal cyst, evidence of chronic calcified pancreatitis, slight edema of the upper flank soft tissues The CT scanner at [facility] is accredited by the [employer] and the scans are performed using protocols designed to limit radiation exposure to as -- low as reasonably achievable to attain images of sufficient resolution adequate for diagnostic evaluation.
--- NOTE | 2016-07-27 12:45 | Consultation ---
DATE OF CONSULTATION: 07/27/2016 PULMONARY CONSULTATION: HISTORY OF PRESENT ILLNESS: This 70-year-old male with a history of chronic hep C and diabetes mellitus, who came to the hospital with weakness. He was admitted on 07/24/2016. In the emergency room, he was seen and worked up and admitted to the hospital for subsequent management and care for his generalized weakness. In the hospital, he has also been seen by Gastroenterology. The patient hyperkalemic with acute renal failure. has elevated BNP. The patient has improved mildly. His most recent x-rays however, had shown possible lung mass, for which a Pulmonary consult has been requested. PAST MEDICAL HISTORY: Notable for diabetes mellitus and chronic hep C. HOME MEDICATIONS: ,lovastatin, metformin, . ALLERGIES: Penicillin. SOCIAL HISTORY: The patient admits to being a long-time smoker, but quit recently. REVIEW OF SYSTEMS: Denies any headaches, hematemesis, melena, hematochezia, night sweats, or weight loss. PHYSICAL EXAMINATION: GENERAL: Reveals a 71-year-old male . VITAL SIGNS: Blood pressure 160/60, heart rate 84, respiratory 20. He is afebrile. HEENT: Unremarkable. CHEST: Clear breath sounds bilaterally. ABDOMEN: Soft. EXTREMITIES: There is no edema. NEUROLOGIC: Nonfocal. LABORATORY AND DIAGNOSTIC DATA: Lab testing discussed above. Hemoglobin is 12, CBC otherwise normal. Chemistries notable for creatinine of 1.5 and BUN 42. Alkaline phosphatase 402, AST, and ALT mildly elevated. Urine toxicology positive for opiates. Coags negative. Urinalysis negative. X-ray chest discussed above. Initial x-ray had shown nonspecific findings. Most recent x-ray has shown stable bibasilar atelectasis versus scarring as well as persistent ovoid opacity in the right infrahilar region. CT has been recommended. IMPRESSION: 1. Right lung mass. 2. Smoker. 3. Diabetes mellitus. 4. History of hepatitis C. DISCUSSION: We will request CT chest noncontrast. Continue present medications. We will follow as outpatient treatment. Dante Dasilva M.D. DR: Shell JOB#: [id number] CC:
[2016-07-27 14:06] LABS: APPEARANCE, BODY FLUID HAZY; BD FL SOURCE PARACENTISIS; BD FL VOLUME 24 mL; BODY FLUID NUCLEATED CELLS 75 /CUMM; BODY FLUID RBC 125 /CUMM; POLYMORPHONUCLEAR WBC 14 %
[2016-07-27 14:07] LABS: MONONUCLEAR WBC 83 %
--- NOTE | 2016-07-27 14:30 | Diagnostic Imaging Report ---
Indications: Ascites Technique: Ultrasound used to localize optimal puncture site. Sterile prepping and draping right lower quadrant. Local anesthesia with 1% lidocaine. Under real-time ultrasound guidance, puncture peritoneal space using paracentesis needle. Stylet removed. Catheter placed to vacuum bottle suction. Total one liter of cloudy light yellow fluid aspirated. Patient tolerated procedure well, without immediate complication. Findings: Followup sonography demonstrates near-complete resolution of peritoneal fluid. Impression: Successful ultrasound-guided paracentesis, yielding one liter of cloudy bright yellow fluid
[2016-07-27 16:05] VITALS: BP 154/77
--- NOTE | 2016-07-27 18:08 | Nephrology Progress Note ---
Assessment/Plan Problem List: (1) CHF (congestive heart failure) (2) Anemia (3) DM (diabetes mellitus) (4) ARF (acute renal failure) (5) Ascites (6) Cirrhosis (7) Cholelithiasis (8) Mass of right lung Plan s/p paracentesis - abd grossly distended, GI following Lung mass suspicious for neoplasm - Oncology consult - Dr Horowitz Pulmo following Avoid nephrotoxic agents Monitor renal function Adequate urine output Monitor lytes, correct PRN DVT prophylaxis with heparin Continue current treatment Monitor vitals Pain mgt AM labs Subjective Constitutional: Denies: chills, diaphoresis, fever, malaise, no symptoms, other , weakness HEENT: Denies: blurred vision, double vision, ear discharge, ear pain, eye pain , mouth pain, mouth swelling, no symptoms, nose congestion, nose pain, other, tearing, throat pain, throat swelling Genitourinary: Denies: burning, discharge, flank pain, frequency, hematuria, incontinence, no symptoms, other, pain, urgency Neurologic/Psychiatric: Denies: anxiety, depressed, emotional problems, headache, no symptoms, numbness, other, paresthesia, pre-existing deficit, seizure, tingling, tremors, weakness Subjective In bed, in no apparent distress, denies discomfort at this time, i did discuss with patient and his about the lung mass found Objective Objective Last 24 Hour Vital Signs Date Time Temp Pulse Resp B/P Pulse Ox O2 Delivery O2 Flow Rate FiO2 07/27/16 16:05 97.7 91 20 154/77 99 Room Air 07/27/16 12:00 97 07/27/16 11:28 96.6 99 20 179/89 100 Room Air 07/27/16 08:04 174/89 07/27/16 08:00 98 07/27/16 07:52 96.4 99 20 174/89 99 Room Air 07/27/16 04:38 114 07/27/16 04:00 97.7 108 19 164/93 99 Room Air 07/27/16 00:00 97.7 103 18 163/110 95 Room Air 07/27/16 00:00 107 07/26/16 20:00 97.9 106 18 149/85 98 Room Air 07/26/16 20:00 103 Intake and Output 07/26/16 07/27/16 19:00 07:00 Intake Total 435 ml Balance 435 ml Intake Oral 360 ml IV Total 75 ml # Voids 1 Laboratory Tests 07/27/16 07:05: White Blood Count 5.6, Red Blood Count 4.21L, Hemoglobin 12.0L, Hematocrit 37.9L , Mean Corpuscular Volume 90, Mean Corpuscular Hemoglobin 28.4, Mean Corpuscular Hemoglobin Concent 31.6L, Red Cell Distribution Width 14.4, Platelet Count 182, Mean Platelet Volume 6.7, Neutrophils (%) (Auto) 76.4H, Lymphocytes (%) (Auto) 13.2L, Monocytes (%) (Auto) 7.9, Eosinophils (%) (Auto) 1.4, Basophils (%) (Auto) 1.1, Sodium Level 135, Potassium Level 4.7, Chloride Level 102, Carbon Dioxide Level 20, Anion Gap 13, Blood Urea Nitrogen 42H, Creatinine 1.5H, Estimat Glomerular Filtration Rate , Glucose Level 208H, Calcium Level 8.2L, Total Bilirubin 0.7, Aspartate Amino Transf (AST/SGOT) 75H, Alanine Aminotransferase (ALT/SGPT) 46H, Alkaline Phosphatase 402H, Ammonia 50, Total Protein 5.9L, Albumin 2.3L, Globulin 3.6, Albumin/Globulin Ratio 0.6L, Alpha Fetoprotein [Pending] 07/27/16 12:30: Body Fluid Source Paracentisis, Body Fluid Volume 24, Body Fluid Appearance Hazy , Body Fluid RBC 125, Body Fluid Total Nucleated Cells 75, Body Fluid Polynuclear WBCs (%) 14, Body Fluid Mononuclear WBCs (%) 83, Body Fluid Mesothelial Cells (%) 3, Body Fluid Albumin [Pending] Height (Feet): 5 Height (Inches): 10.00 Weight (Pounds): 166 General Appearance: no apparent distress, alert EENT: normal ENT inspection Neck: normal alignment, supple Cardiovascular: normal rate, regular rhythm, no JVD Respiratory/Chest: decreased breath sounds Abdomen: distended, hepatomegaly Extremities: non-tender, normal inspection Neurologic: alert, oriented x 3, responsive, normal mood/affect Paige Bhardwaj N.P. Jul 27, 2016 18:08
[2016-07-27 20:00] VITALS: BP 189/103
[2016-07-28] VITALS (7 sets, daily range): BP systolic 142–177; BP diastolic 83–98
[2016-07-28] MEDS: Losartan 50mg tab ORAL PRN (00:22)
[2016-07-28] MEDS: NovoLOG Insulin Flexpen SUBQ SCH ×3 (06:20→17:27)
[2016-07-28 07:59] LABS: BASOPHILS % (AUTO) 0.6 % (0.0-2.0); EOSINOPHILS % (AUTO) 1.5 % (0.0-3.0); LYMPHOCYTES % (AUTO) 13.6 % (20.0-45.0); MEAN CORPUSCULAR HEMOGLOBIN 29.1 PG (27.0-31.0); MEAN CORPUSCULAR VOLUME 88 FL (80-99); MEAN PLATELET VOLUME 6.1 FL (6.5-10.1); MONOCYTES % (AUTO) 7.1 % (1.0-10.0); NEUTROPHILS % (AUTO) 77.2 % (45.0-75.0); PLATELET COUNT 185 K/UL (150-450); RED BLOOD COUNT 4.27 M/UL (4.70-6.10); RED CELL DISTRIBUTION WIDTH 14.4 % (11.6-14.8); WHITE BLOOD COUNT 5.7 K/UL (4.8-10.8)
[2016-07-28 08:13] LABS: ALANINE AMINOTRANSFERASE 49 U/L (3-41); ALBUMIN/GLOBULIN RATIO 0.7 (1.0-2.7); ANION GAP 15 (5-15); ASPARTATE AMINO TRANSFERASE 86 U/L (5-40); CALCIUM 8.8 mg/dL (8.6-10.2); CARBON DIOXIDE 20 mEQ/L (20-30); CHLORIDE 102 mEQ/L (98-107); CREATININE 1.6 mg/dL (0.7-1.2); HEMOLYSIS 2; POTASSIUM 4.8 mEQ/L (3.4-4.9); SODIUM 137 mEQ/L (135-145); TOTAL PROTEIN 6.4 g/dL (6.6-8.7)
[2016-07-28 08:29] LABS: BILIRUBIN,DIRECT 0.8 mg/dL (0.1-0.3)
[2016-07-28] MEDS: Heparin 5000 units/ml inj SUBQ SCH (08:50)
--- NOTE | 2016-07-28 10:10 | Pulmonology Progress Note ---
Assessment/Plan Assessment/Plan IMPRESSION: 1. Right lung mass. Rib based 2. Smoker. 3. Diabetes mellitus. 4. History of hepatitis C. DISCUSSION: We will request CT guided biopsy. Continue present medications. I will follow. Subjective Interval Events: CT chest demonstrates large rib mass Constitutional: Reports: no symptoms HEENT: Repors: no symptoms Respiratory: Reports: pleuritic pain Cardiovascular: Reports: no symptoms Gastrointestinal/Abdominal: Reports: no symptoms Allergies: Coded Allergies: PENICILLINS (Verified Allergy, Intermediate, 12/06/15) Objective Last 24 Hour Vital Signs Date Time Temp Pulse Resp B/P Pulse Ox O2 Delivery O2 Flow Rate FiO2 07/28/16 08:50 151/83 07/28/16 08:00 104 19 151/83 99 Room Air 07/28/16 05:25 97.5 92 20 157/98 99 Room Air 07/28/16 04:00 97.5 97 20 163/95 98 Room Air 07/28/16 04:00 97 07/28/16 00:22 177/92 07/28/16 00:00 97.8 106 19 177/94 99 Room Air 07/28/16 00:00 107 07/27/16 20:43 184/103 07/27/16 20:00 97.7 108 21 189/103 99 Room Air 07/27/16 20:00 105 07/27/16 18:21 154/77 07/27/16 16:05 97.7 91 20 154/77 99 Room Air 07/27/16 16:00 72 07/27/16 12:00 97 07/27/16 11:28 96.6 99 20 179/89 100 Room Air Intake and Output 07/27/16 07/28/16 19:00 07:00 Intake Total 840 ml Output Total 650 ml Balance 840 ml -650 ml Intake Oral 740 ml IV Total 100 ml Output Urine Total 650 ml # Voids 4 # Bowel Movements 1 General Appearance: no acute distress HEENT: normocephalic Respiratory/Chest: chest wall non-tender, lungs clear Cardiovascular: normal peripheral pulses, normal rate Abdomen: normal bowel sounds, soft, non tender Extremities: no cyanosis Laboratory Tests 07/27/16 12:30: Body Fluid Source Paracentisis, Body Fluid Volume 24, Body Fluid Appearance Hazy , Body Fluid RBC 125, Body Fluid Total Nucleated Cells 75, Body Fluid Polynuclear WBCs (%) 14, Body Fluid Mononuclear WBCs (%) 83, Body Fluid Mesothelial Cells (%) 3, Body Fluid Albumin [Pending] 07/28/16 07:40: White Blood Count 5.7, Red Blood Count 4.27L, Hemoglobin 12.4L, Hematocrit 37.6L , Mean Corpuscular Volume 88, Mean Corpuscular Hemoglobin 29.1, Mean Corpuscular Hemoglobin Concent 33.0, Red Cell Distribution Width 14.4, Platelet Count 185, Mean Platelet Volume 6.1L, Neutrophils (%) (Auto) 77.2H, Lymphocytes (%) (Auto) 13.6L, Monocytes (%) (Auto) 7.1, Eosinophils (%) (Auto) 1.5, Basophils (%) (Auto) 0.6, Sodium Level 137, Potassium Level 4.8, Chloride Level 102, Carbon Dioxide Level 20, Anion Gap 15, Blood Urea Nitrogen 45H, Creatinine 1.6H, Estimat Glomerular Filtration Rate , Glucose Level 164H, Calcium Level 8.8 , Total Bilirubin 1.2, Direct Bilirubin 0.8H, Aspartate Amino Transf (AST/SGOT) 86H, Alanine Aminotransferase (ALT/SGPT) 49H, Alkaline Phosphatase 407H, Total Protein 6.4L, Albumin 2.8L, Globulin 3.6, Albumin/Globulin Ratio 0.7L Current Medications Medications (Trade) Dose Ordered Sig/Cammy Route PRN Reason Start Time Stop Time Status Last Admin Dose Admin Acetaminophen (Tylenol) 650 mg Q4H PRN ORAL Mild Pain (Pain Scale 1-3) 07/23/16 22:45 08/22/16 22:44 Clonidine HCl (Catapres) 0.1 mg Q6H PRN ORAL sbp >160 07/27/16 18:15 08/26/16 18:14 07/27/16 20:43 Dextrose (Dextrose 50%) STAT PRN IV Hypoglycemia 07/23/16 22:45 08/22/16 22:44 Diphenhydramine HCl (Benadryl) 25 mg Q6H PRN ORAL Itching/Pruritis 07/23/16 22:45 08/22/16 22:44 Enalapril Maleate (Vasotec) 10 mg BID ORAL 07/24/16 09:00 08/23/16 08:59 07/28/16 08:50 Gemfibrozil (Lopid) 600 mg TWICE A DAY ORAL 07/24/16 09:00 08/23/16 08:59 07/28/16 08:49 Heparin Sodium (Porcine) (Heparin 5000 units/ml) 5,000 units EVERY 12 HOURS SUBQ 07/24/16 09:00 08/23/16 08:59 07/28/16 08:50 Hydromorphone HCl (Dilaudid) 2 mg Q6HR PRN ORAL for severe pain 07/24/16 20:45 07/31/16 20:44 07/27/16 11:55 Insulin Aspart (NovoLOG) BEFORE MEALS AND HS SUBQ 07/24/16 06:30 08/23/16 06:29 07/28/16 06:20 Losartan Potassium (Cozaar) 50 mg Q12H PRN ORAL For High Blood Pressure 07/24/16 07:15 08/23/16 07:14 07/28/16 00:22 Nicotine (Nicoderm) 1 patch Q24H TDERMAL 07/26/16 16:00 08/25/16 15:59 07/27/16 16:29 Ondansetron HCl (Zofran) 4 mg Q6H PRN IVP Nausea & Vomiting 07/23/16 22:45 08/22/16 22:44 Zolpidem Tartrate (Ambien) 5 mg DAILYPRN PRN ORAL Insomnia 07/23/16 22:45 08/22/16 22:44 Dante Dasilva MD Jul 28, 2016 10:10
--- NOTE | 2016-07-28 10:51 | GI Progress Note ---
Assessment/Plan Problems: (1) Hepatitis C ICD Codes: B19.20 - Unspecified viral hepatitis C without hepatic coma SNOMED: 79259204 (2) Hypoalbuminemia ICD Codes: E88.09 - Other disorders of plasma-protein metabolism, not elsewhere classified SNOMED: 128931073 (3) Cirrhosis ICD Codes: K74.60 - Unspecified cirrhosis of liver SNOMED: 67170549 (4) Ascites ICD Codes: R18.8 - Other ascites SNOMED: 113011897 (5) Cholelithiasis ICD Codes: K80.20 - Calculus of gallbladder without cholecystitis without obstruction SNOMED: 838924570 (6) Anemia ICD Codes: D64.9 - Anemia, unspecified SNOMED: 747962137 Status: stable Status Narrative Discussed with Dr. Gill. Assessment/Plan abdominal U/S reviewed >> suggest cirrhosis. Ascites. Sonographic Gonzalez's sign is positive. This raises the possibility of acute cholecystitis. CT chest reviewed >> 4.6 x 4.5 x 3.5 cm mass centered in the posterior right seventh rib, with associated rib destruction. Appearance is is a nonspecific as regards etiology but highly suspicious for neoplasm. Hx of Hep C ammonia WNL s/p paracentesis yielding 1L of fluid, fu labs r/o SBP ok for DC per GI standpoint fu AFP fu serum albumin (2.3), body fluid albumin to calculate SAAG hold Lasix and Aldactone for now given elevated creatinine fu labs patient needs PCP referral to GI specialist for Hep C tx given HMO Subjective Gastrointestinal/Abdominal: Reports: abdomen distended - ascites Objective Last 24 Hour Vital Signs Date Time Temp Pulse Resp B/P Pulse Ox O2 Delivery O2 Flow Rate FiO2 07/28/16 08:50 151/83 07/28/16 08:00 104 19 151/83 99 Room Air 07/28/16 05:25 97.5 92 20 157/98 99 Room Air 07/28/16 04:00 97.5 97 20 163/95 98 Room Air 07/28/16 04:00 97 07/28/16 00:22 177/92 07/28/16 00:00 97.8 106 19 177/94 99 Room Air 07/28/16 00:00 107 07/27/16 20:43 184/103 07/27/16 20:00 97.7 108 21 189/103 99 Room Air 07/27/16 20:00 105 07/27/16 18:21 154/77 07/27/16 16:05 97.7 91 20 154/77 99 Room Air 07/27/16 16:00 72 07/27/16 12:00 97 07/27/16 11:28 96.6 99 20 179/89 100 Room Air Intake and Output 07/27/16 07/28/16 19:00 07:00 Intake Total 840 ml Output Total 650 ml Balance 840 ml -650 ml Intake Oral 740 ml IV Total 100 ml Output Urine Total 650 ml # Voids 4 # Bowel Movements 1 Laboratory Tests Test 07/27/16 12:30 07/28/16 07:40 Body Fluid Source Paracentisis Body Fluid Volume 24 mL Body Fluid Appearance Hazy Body Fluid RBC 125 /CUMM Body Fluid Total Nucleated Cells 75 /CUMM Body Fluid Polynuclear WBCs (%) 14 % Body Fluid Mononuclear WBCs (%) 83 % Body Fluid Mesothelial Cells (%) 3 % Body Fluid Albumin Pending White Blood Count 5.7 K/UL (4.8-10.8) Red Blood Count 4.27 M/UL (4.70-6.10) L Hemoglobin 12.4 G/DL (14.2-18.0) L Hematocrit 37.6 % (42.0-52.0) L Mean Corpuscular Volume 88 FL (80-99) Mean Corpuscular Hemoglobin 29.1 PG (27.0-31.0) Mean Corpuscular Hemoglobin Concent 33.0 G/DL (32.0-36.0) Red Cell Distribution Width 14.4 % (11.6-14.8) Platelet Count 185 K/UL (150-450) Mean Platelet Volume 6.1 FL (6.5-10.1) L Neutrophils (%) (Auto) 77.2 % (45.0-75.0) H Lymphocytes (%) (Auto) 13.6 % (20.0-45.0) L Monocytes (%) (Auto) 7.1 % (1.0-10.0) Eosinophils (%) (Auto) 1.5 % (0.0-3.0) Basophils (%) (Auto) 0.6 % (0.0-2.0) Sodium Level 137 mEQ/L (135-145) Potassium Level 4.8 mEQ/L (3.4-4.9) Chloride Level 102 mEQ/L (98-107) Carbon Dioxide Level 20 mEQ/L (20-30) Anion Gap 15 (5-15) Blood Urea Nitrogen 45 mg/dL (7-23) H Creatinine 1.6 mg/dL (0.7-1.2) H Estimat Glomerular Filtration Rate mL/min (>60) Glucose Level 164 mg/dL (74-106) H Calcium Level 8.8 mg/dL (8.6-10.2) Total Bilirubin 1.2 mg/dL (0.0-1.2) Direct Bilirubin 0.8 mg/dL (0.1-0.3) H Aspartate Amino Transf (AST/SGOT) 86 U/L (5-40) H Alanine Aminotransferase (ALT/SGPT) 49 U/L (3-41) H Alkaline Phosphatase 407 U/L (40-129) H Total Protein 6.4 g/dL (6.6-8.7) L Albumin 2.8 g/dL (3.5-5.2) L Globulin 3.6 g/dL Albumin/Globulin Ratio 0.7 (1.0-2.7) L Height (Feet): 5 Height (Inches): 10.00 Weight (Pounds): 172 General Appearance: no apparent distress, alert Cardiovascular: normal rate Respiratory/Chest: normal breath sounds, no respiratory distress Abdominal Exam: distended, ascites Extremities: normal range of motion Verito Darby N.P. Jul 28, 2016 10:51
[2016-07-28] MEDS ORDERED: Lidocaine 1% Plain 30 ml INJ ONE (11:30)
[2016-07-28] MEDS ORDERED: Bismuth Subsalicylate 30ml ORAL PRN (14:30)
[2016-07-28] MEDS ORDERED: 1/2 NS 1000ml IV ONE (18:34)
[2016-07-28] MEDS ORDERED: Tubing Blood Filter IV ONE (18:34)
[2016-07-28] MEDS ORDERED: Tubing IV Secondary IV ONE (18:34)
[2016-07-28] MEDS ORDERED: NS 275ml ONE (18:34)
--- NOTE | 2016-07-28 19:35 | Consultation ---
Consult Note Assessment/Plan Hematology/Onc Consult RFC: lung mass holly COX MD: Piedad DOS: 07/28/16 ID 71-year-old male with PMH for DM and Hepatitis C who presented to the ED c/o weakness. He states the last month he's been feeling increasingly more weak. He reported that he had a hard time getting out of bed prior to admission. Denies any chest pain or shortness of breath. Denies any fevers or chills. Denies any changes in appetite. No other aggravating or relieving factors. Denies any other associated symptoms. In the ED, he had some renal insufficiency and hyperkalemia. He was admitted for further management. Noted to have a lung mass and onc consulted. Allergies: PENICILLINS (Verified Allergy, Intermediate, 12/06/15) Meds Scheduled Enalapril Maleate* (Enalapril Maleate*), 10 MG ORAL DAILY, (Reported) Gemfibrozil (Gemfibrozil*), 600 MG ORAL TWICE A DAY, (Reported) Lovastatin (Lovastatin), 20 MG ORAL BEDTIME, (Reported) Metformin Hcl* (Metformin Hcl*), 1,000 MG ORAL TWICE A DAY, (Reported) Past Medical/Surgical History: (1) DM (diabetes mellitus) ROS: Constitutional: No fever, no chills, no night sweats, no fatigue Skin: No rashes, lumps, itchiness, dryness HEENT: No DICKINSON, ear ache, visual changes, double vision, nosebleeds, sore throat, lumps, swollen glands Breasts: No lumps, pain, discharge Pulmonary: No cough, sputum, shortness of breath, coughing up blood, hemoptysis Cardiovascular: No chest pain, tightness, palpitations, syncope, claudication, orthopnea, PND GI: No nausea, vomiting, diarrhea, melena, hematochezia, change in appetite, abdominal pain : No dysuria, frequency, urgency, urinary incontinence, foamy urine Musculoskeletal: No joint swelling or muscle pain, trauma, back pain Neurologic: No dizziness, fainting, seizures, changes in smell or taste Psychiatric: No nervousness, stress, or depression, anxiety, hallucinations Endocrine: No weight change, heat or cold intolerance, tremor, insomnia PE: General Appearance: A+O x3, NAD HEENT: normocephalic, atraumatic Neck: non-tender, normal alignment Respiratory/Chest: chest wall non-tender, lungs clear Cardiovascular/Chest: normal peripheral pulses, normal rate Abdomen: normal bowel sounds, non tender Extremities: normal range of motion Vital Signs Last 24 Hour Vital Signs Date Time Temp Pulse Resp B/P Pulse Ox O2 Delivery O2 Flow Rate FiO2 07/28/16 17:25 142/85 07/28/16 16:00 89 18 142/85 100 Room Air 07/28/16 15:04 93 07/28/16 12:02 97 07/28/16 12:00 97.7 93 19 158/85 99 Room Air 07/28/16 08:50 151/83 07/28/16 08:00 104 19 151/83 99 Room Air 07/28/16 05:25 97.5 92 20 157/98 99 Room Air 07/28/16 04:00 97.5 97 20 163/95 98 Room Air 07/28/16 04:00 97 07/28/16 00:22 177/92 07/28/16 00:00 97.8 106 19 177/94 99 Room Air 07/28/16 00:00 107 07/27/16 20:43 184/103 07/27/16 20:00 97.7 108 21 189/103 99 Room Air 07/27/16 20:00 105 Intake and Output 07/23/16 07/24/16 19:00 07:00 Intake Total 240 ml 725 ml Output Total 1500 ml Balance 240 ml -775 ml Intake Oral 240 ml IV Total 525 ml Other 200 ml Output Urine Total 1500 ml # Bowel Movements 1 Laboratory Tests Test 07/24/16 00:00 07/24/16 07:40 Urine Color Yellow Urine Appearance Clear Urine pH 5 (4.5-8.0) Urine Specific [place] 1.020 (1.005-1.035) Urine Protein 4+ (NEGATIVE) H Urine Glucose (UA) 2+ (NEGATIVE) H Urine Ketones Negative (NEGATIVE) Urine Occult Blood Negative (NEGATIVE) Urine Nitrite Negative (NEGATIVE) Urine Bilirubin Negative (NEGATIVE) Urine Urobilinogen Normal MG/DL (0.0-1.0) Urine Leukocyte Esterase Negative (NEGATIVE) Urine RBC 0-2 /HPF (0 - 0) H Urine WBC 0-2 /HPF (0 - 0) Urine Squamous Epithelial Cells Occasional /LPF Urine Amorphous Sediment Occasional /LPF (NONE) Urine Bacteria Few /HPF (NONE) Urine Opiates Screen Positive (NEGATIVE) H Urine Barbiturates Screen Negative (NEGATIVE) Phencyclidine (PCP) Screen Negative (NEGATIVE) Urine Amphetamines Screen Negative (NEGATIVE) Urine Benzodiazepines Screen Negative (NEGATIVE) Urine Cocaine Screen Negative (NEGATIVE) Urine Marijuana (THC) Screen Negative (NEGATIVE) White Blood Count 6.5 K/UL (4.8-10.8) Red Blood Count 4.32 M/UL (4.70-6.10) L Hemoglobin 12.2 G/DL (14.2-18.0) L Hematocrit 38.9 % (42.0-52.0) L Mean Corpuscular Volume 90 FL (80-99) Mean Corpuscular Hemoglobin 28.2 PG (27.0-31.0) Mean Corpuscular Hemoglobin Concent 31.3 G/DL (32.0-36.0) L Red Cell Distribution Width 14.3 % (11.6-14.8) Platelet Count 198 K/UL (150-450) Mean Platelet Volume 6.6 FL (6.5-10.1) Neutrophils (%) (Auto) 77.5 % (45.0-75.0) H Lymphocytes (%) (Auto) 13.4 % (20.0-45.0) L Monocytes (%) (Auto) 7.0 % (1.0-10.0) Eosinophils (%) (Auto) 0.9 % (0.0-3.0) Basophils (%) (Auto) 1.3 % (0.0-2.0) Sodium Level 135 mEQ/L (135-145) Potassium Level 4.5 mEQ/L (3.4-4.9) Chloride Level 98 mEQ/L (98-107) Carbon Dioxide Level 22 mEQ/L (20-30) Anion Gap 15 (5-15) Blood Urea Nitrogen 38 mg/dL (7-23) H Creatinine 1.6 mg/dL (0.7-1.2) H Estimat Glomerular Filtration Rate mL/min (>60) Glucose Level 166 mg/dL (74-106) H Calcium Level 8.7 mg/dL (8.6-10.2) Thyroid Stimulating Hormone (TSH) 1.030 uIU/mL (0.300-4.500) Height (Feet): 5 Height (Inches): 10.00 Weight (Pounds): 159 Medications Current Medications Medications (Trade) Dose Ordered Sig/Cammy Route PRN Reason Start Time Stop Time Status Last Admin Dose Admin Acetaminophen (Tylenol) 650 mg Q4H PRN ORAL Mild Pain (Pain Scale 1-3) 07/23/16 22:45 08/22/16 22:44 Dextrose (Dextrose 50%) STAT PRN IV Hypoglycemia 07/23/16 22:45 08/22/16 22:44 Diphenhydramine HCl (Benadryl) 25 mg Q6H PRN ORAL Itching/Pruritis 07/23/16 22:45 08/22/16 22:44 Enalapril Maleate (Vasotec) 10 mg BID ORAL 07/24/16 09:00 08/23/16 08:59 07/24/16 17:05 Gemfibrozil 600 mg 600 mg TWICE A DAY ORAL 07/24/16 09:00 08/23/16 08:59 07/24/16 17:05 Heparin Sodium (Porcine) (Heparin 5000 units/ml) 5,000 units EVERY 12 HOURS SUBQ 07/24/16 09:00 08/23/16 08:59 07/24/16 21:06 Hydromorphone HCl (Dilaudid) 2 mg Q6HR PRN ORAL for severe pain 07/24/16 20:45 07/31/16 20:44 07/24/16 20:55 Insulin Aspart (NovoLOG) BEFORE MEALS AND HS SUBQ 07/24/16 06:30 08/23/16 06:29 07/24/16 21:05 Losartan Potassium (Cozaar) 50 mg Q12H PRN ORAL For High Blood Pressure 07/24/16 07:15 08/23/16 07:14 Ondansetron HCl (Zofran) 4 mg Q6H PRN IVP Nausea & Vomiting 07/23/16 22:45 08/22/16 22:44 Sodium Chloride (0.45% NS 1000ml) 1,000 ml @ 75 mls/hr [id number] IV 07/23/16 22:45 08/22/16 22:44 07/24/16 12:41 Zolpidem Tartrate (Ambien) 5 mg DAILYPRN PRN ORAL Insomnia 07/23/16 22:45 08/22/16 22:44 Assessment/Recs # 4.6 x 4.5 x 3.5 cm lung mass centered in the posterior right seventh rib, with associated rib destruction. Appearance is is a nonspecific as regards etiology but highly suspicious for neoplasm ---> outpatient f/u with Dr. Garvin, will need a biopsy of this mass # Cirrhosis. Ascites. Sonographic Gonzalez's sign is positive. This raises the possibility of acute cholecystitis. . # Hx of Hep C s/p paracentesis yielding 1L of fluid, fu labs r/o SBP # Anemia of chronic disease # Coagulopathy 2/2 cirrhosis # JERARDO # Hyperkalameia # DM Sheldon Horowitz Jul 28, 2016 19:35
[2016-07-29 09:12] LABS: COMMENT,BODY FLUID PATHOLOGIST COMMENT
--- NOTE | 2016-07-29 11:32 | Discharge Summary ---
Discharge Summary Hospital Course Date of Admission Jul 23, 2016 at 20:25 Date of Discharge Jul 28, 2016 at 18:35 Admitting Diagnosis hyperklaemia, ARF, congestive heart failure HPI Nassaad Galvan is a 71 year old male who was admitted on Jul 23, 2016 at 20:25 for Hypterkalemia, Acute Renal Failure, Congestive Hospital Course [id number] Discharge Discharge Disposition Patient was discharged to Home with Home Health(06) Discharge Diagnoses: Mckenna Ortega NP Jul 29, 2016 11:32
--- NOTE | 2016-07-29 21:45 | Discharge Summary 2 SIG ---
DATE OF ADMISSION: 07/23/2016 DATE OF DISCHARGE: 07/28/2016 CONSULTANTS: 1. Sheldon Horowitz M.D. 2. Slick Gill M.D. 3. Dante Dasilva M.D. BRIEF HOSPITAL COURSE: The patient is a 71-year-old male with history of diabetes and hepatitis C, who presented to ED complaining of weakness that started for a month and has been increasingly more weak. He had a hard time getting out of bed. He presented to ED and on evaluation, laboratories showed acute kidney injury. Potassium was elevated to 5.8. BNP was 3655. Chest x-ray done showed no consolidation, no effusion, no pneumothorax, and no acute cardiopulmonary disease. EKG was in normal sinus rhythm with peaked T-waves. He was admitted to telemetry and was given DVT prophylaxis with heparin. He had abnormal LFTs and was seen by GI. Ultrasound of the abdomen showed liver cirrhosis and a splenomegaly. There was presence of ascites. Sonographic Gonzalez sign was positive raising the possibility of acute cholecystitis. On 07/27/2016, he underwent ultrasound-guided paracenteses yielding one liter of bright yellow fluid. Body fluid Gram stain was negative for organisms. Culture did not isolate any growth. Alpha-fetoprotein was still pending. Ammonia level was 50. He underwent a CT of the chest, which showed a mass in the posterior right seventh rib. He will need a biopsy of the mass and advised to follow up with Dr. Garvin. He was also seen by Dr. Dasilva. Chest x-ray showed overt opacity on the right infrahilar region. Chest CT was done. Lasix and Aldactone was placed on hold secondary to elevated creatinine. The patient was discharged home, would need referral to Gastrointestinal and Oncology specialists as outpatient. FINAL DIAGNOSES: 1. Acute kidney injury. 2. Hyperkalemia. 3. Ascites status post paracentesis. 4. Hepatitis C, will need outpatient treatment. 5. Lung mass. 6. Liver cirrhosis. 7. Cholelithiasis. 8. Anemia. 9. Diabetes mellitus. DISCHARGE DISPOSITION: The patient was discharged home with home health. Bert Herbert M.D. I have been assigned to dictate discharge summary on this account and I was not involved in the patient's management. Mckenna Ortega N.P. DR: ROWDY JOB#: [id number] CC:
== END 2016-07-28 18:35 | disposition home health service (06) | DRG 683 ==
LOC: EMR 18:00 → 2E 20:25 → EDBEDREQ 20:41
PROC: 0W9G3ZZ Drainage of Peritoneal Cavity, Percutaneous Approach (ICD-10-PCS; principal; 2016-07-26)
DX: N17.9 Acute kidney failure, unspecified (principal); R18.8 Other ascites; I50.9 Heart failure, unspecified; K74.60 Unspecified cirrhosis of liver; E88.09 Other disorders of plasma-protein metabolism, not elsewhere classified; E87.5 Hyperkalemia; E11.9 Type 2 diabetes mellitus without complications; D64.9 Anemia, unspecified; Z88.0 Allergy status to penicillin; B18.2 Chronic viral hepatitis C; Z87.891 Personal history of nicotine dependence; M89.9 Disorder of bone, unspecified; K80.20 Calculus of gallbladder without cholecystitis without obstruction
CPT/HCPCS: 36415; 71010; 71250; 76700; 76942; 80048; 80053; 80300; 81003; 82105; 82140; 82248; 82550; 82553; 82962; 83880; 84443; 84484; 85025; 85610; 85730; 87070; 87081; 87205; 88104; 89051; 93005; J1815

== ENCOUNTER 2016-08-02 01:19 | Inpatient (IN) | payer MEDICARE ==
[~2016-08-02] VITALS: Ht 177.8 cm; Wt 79.9 kg
[2016-08-02] VITALS (9 sets, daily range): BP systolic 145–183; BP diastolic 74–95
[2016-08-02 03:40] LABS: AMMONIA 31 umol/L (16-60); ANION GAP 19 (5-15); CALCIUM 8.4 mg/dL (8.6-10.2); CARBON DIOXIDE 17 mEQ/L (20-30); CHLORIDE 103 mEQ/L (98-107); CREATININE 1.3 mg/dL (0.7-1.2); HEMOLYSIS 9; POTASSIUM 4.9 mEQ/L (3.4-4.9); SODIUM 139 mEQ/L (135-145)
--- NOTE | 2016-08-02 04:55 | Emergency Room Report ---
History of Present Illness General Chief Complaint: Dyspnea/Respdistress Source: Patient, Family Member, Significant Other, Medical Record Present Illness HPI Is a 71-year-old male who was recently diagnosed with cirrhosis with ascites. He also has a suspicious mass in his lung is concerning for cancer. He was just admitted here discharge earlier this month. He present to [facility] today for weakness. Labs showed potassium 5.6 and slight elevation of BNP. He was given Kayexalate. He was scheduled to be transfer to an outside hospital because of his insurance. Family did not want to do that so they got the lab and came here. Patient denies any nausea vomiting. No fever or chills. Per his significant other/, he has been increasing weakness. No fever or chills. No nausea no vomiting. He hasn't had full workup on the neoplastic condition yet. His ascites negative for neoplastic process. He had a negative endoscopy and colonoscopy per his . Allergies: Coded Allergies: PENICILLINS (Verified Allergy, Intermediate, 12/06/15) Patient History Past Medical History: see triage record, old chart reviewed Past Surgical History: other Pertinent Family History: none Social History: Reports: alcohol use Immunizations: other Reviewed Nursing Documentation: PMH: Agreed, PSxH: Agreed Nursing Documentation-PMH Hx Cardiac Problems: Yes Hx Hypertension: Yes Hx Diabetes: Yes Hx Cancer: No Hx Gastrointestinal Problems: Yes - HEP C, HEPATOMEGALLY Hx Neurological Problems: Yes Hx Weakness: Yes Hx Fatigue: Yes Review of Systems Constitutional: Reports: malaise, weakness Eye: Denies: blurred vision, eye pain ENT: Denies: ear pain, nose congestion, throat swelling Respiratory: Denies: cough, shortness of breath Cardiovascular: Denies: chest pain, palpitations Gastrointestinal: Denies: abdominal pain, diarrhea, nausea, vomiting Musculoskeletal: Denies: back pain, joint pain Skin: Denies: rash Neurological: Denies: headache, numbness Endocrine: Denies: increased thirst, increased urine Hematologic/Lymphatic: Denies: easy bruising All Other Systems: negative except mentioned in HPI Physical Exam Vital Signs Date Time Temp Pulse Resp B/P Pulse Ox O2 Delivery O2 Flow Rate FiO2 08/02/16 01:23 97.5 105 18 161/83 97 Room Air vitals with hypertension Sp02 EP Interpretation: reviewed, normal General Appearance: no apparent distress, lethargic - Sleepy, Chronically Ill Head: normocephalic, atraumatic Eyes: bilateral eye EOMI, bilateral eye PERRL ENT: hearing grossly normal, normal pharynx Neck: full range of motion, supple, no meningismus Respiratory: chest non-tender, lungs clear, normal breath sounds Cardiovascular #1: regular rate, rhythm, no murmur Gastrointestinal: normal bowel sounds, non tender, no mass, no organomegaly, no bruit, non-distended, other - Ascites Musculoskeletal: back normal, normal range of motion Psychiatric: mood/affect normal Skin: warm/dry Medical Decision Making Diagnostic Impression: Primary Impression: Encephalopathy acute Additional Impressions: Failure to thrive in adult Anemia in chronic illness Acute hyperkalemia ER Course Patient with weakness and failure to thrive. This most likely secondary to neoplastic process. He does not know that he has cancer yet. His family been keeping away from him. At [facility] however he was told that he has lung cancer. Patient will be admitted for further workup. Potassium was 4.9 here. It came down after Kayexalate at [facility]. Lab Results Impression labs unremarkable EKG Diagnostic Results EKG Time: 04:55 Rate: normal Rhythm: NSR ST Segments: no acute changes Rhythm Strip Diag. Results Rhythm Strip Time: 04:55 EP Interpretation: yes Rate: 97 Rhythm: NSR, no PVC's, no ectopy Last Vital Signs Date Time Temp Pulse Resp B/P Pulse Ox O2 Delivery O2 Flow Rate FiO2 08/02/16 04:10 97.5 99 18 177/83 97 Room Air Status: improved Disposition: ADMITTED INPATIENT Condition: Serious Referrals: [facility],REFERRING (PCP) LAKIA ZARAGOZA M.D. Aug 02, 2016 04:55
[2016-08-02] MEDS ORDERED: LANTUS5 UNITS SUBQ (05:11)
[2016-08-02] MEDS ORDERED: HYDROCODON-ACE1 EA13 ORAL (05:11)
[2016-08-02] MEDS ORDERED: OMEPRAZOLE20 M3 ORAL (05:11)
[2016-08-02] MEDS ORDERED: Tylenol #3 tab (300mg/30mg) ORAL PRN (11:30)
[2016-08-02] MEDS: metFORMIN 500mg tab ORAL SCH ×2 (12:41→17:03)
--- NOTE | 2016-08-02 14:52 | Cardiology Report ---
APPROVED REPORT EKG Measurement Heart [id number] MI [id number] Sinus tachycardia Otherwise normal ECG
--- NOTE | 2016-08-02 16:18 | Cardiac Electrophysiology PN ---
Subjective Subjective [id number] Objective Last 24 Hour Vital Signs Date Time Temp Pulse Resp B/P Pulse Ox O2 Delivery O2 Flow Rate FiO2 08/02/16 16:09 96.6 104 20 145/79 98 Room Air 08/02/16 12:42 163/92 08/02/16 12:03 97.1 107 20 163/92 99 Room Air 08/02/16 12:00 101 08/02/16 08:40 96.8 106 20 154/95 98 Room Air 08/02/16 08:00 94 08/02/16 06:00 96.8 105 18 162/85 99 Room Air 08/02/16 05:35 97.5 100 18 153/74 97 Room Air 08/02/16 05:34 97.5 100 18 153/74 97 Room Air 08/02/16 05:30 97.5 100 18 183/80 97 Room Air 08/02/16 05:10 167/72 08/02/16 05:02 97.5 101 18 155/74 97 Room Air 08/02/16 04:10 97.5 99 18 177/83 97 Room Air 08/02/16 01:40 105 18 Room Air 08/02/16 01:23 97.5 105 18 161/83 97 Room Air Intake and Output 08/01/16 08/02/16 19:00 07:00 Intake Total 0 ml Balance 0 ml Intake Oral 0 ml Laboratory Tests Test 08/02/16 02:55 Sodium Level 139 mEQ/L (135-145) Potassium Level 4.9 mEQ/L (3.4-4.9) Chloride Level 103 mEQ/L (98-107) Carbon Dioxide Level 17 mEQ/L (20-30) L Anion Gap 19 (5-15) H Blood Urea Nitrogen 46 mg/dL (7-23) H Creatinine 1.3 mg/dL (0.7-1.2) H Estimat Glomerular Filtration Rate mL/min (>60) Glucose Level 195 mg/dL (74-106) H Calcium Level 8.4 mg/dL (8.6-10.2) L Ammonia 31 umol/L (16-60) NADER BACK Aug 02, 2016 16:18
[2016-08-02] MEDS: Levemir Flexpen SUBQ SCH (21:13)
--- NOTE | 2016-08-02 22:15 | Consultation ---
DATE OF CONSULTATION: 08/02/2016 PULMONARY CONSULTATION HISTORY OF PRESENT ILLNESS: This is a 71-year-old male with a history of liver cirrhosis with ascites. He also apparently has a lung mass. He was admitted here and discharged earlier last month. He came to [facility] and he was transferred to this hospital for further workup and care. PAST MEDICAL HISTORY: Liver cirrhosis and possible lung mass. There is also history of hypertension and diabetes mellitus and also hepatitis C. MEDICATIONS: Summarized in the chart. REVIEW OF SYSTEMS: Unable to obtain from the patient. PHYSICAL EXAMINATION: GENERAL: Reveals an elderly male. At this time, he is poorly responsive. HEENT: Unremarkable. CHEST: Clear . ABDOMEN: Soft. EXTREMITIES: There is edema. LABORATORY DATA: Creatinine 1.3. No other lab testing was available. IMAGING STUDIES: CT chest was obtained on 07/27/2016, which showed there is a mass in the posterior right seventh rib with rib destruction. This was seen previously. Apparently, a biopsy was ordered, but the patient was discharged prior to this was possibly completed. IMPRESSION: 1. Right rib lesion/lung mass. 2. Cirrhosis with ascites. DISCUSSION: We will admit to the hospital. We will again request a CT-guided biopsy of rib mass. 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 Dante Dasilva M.D. DR: SANTIAGO JOB#: [id number] CC:
--- NOTE | 2016-08-02 23:30 | Consultation ---
DATE OF CONSULTATION: 08/02/2016 CARDIOLOGY CONSULTATION CONSULTING PHYSICIAN: Tarun Childs M.D. REFERRING PHYSICIAN: Bert Herbert M.D. REASON FOR CONSULTATION: Tachycardia and lower extremity edema. HISTORY OF PRESENT ILLNESS: The patient is a 71-year-old gentleman with history of cirrhosis and ascites, as well as suspicious for cancer, who was discharged this month. The patient presented to [facility] with generalized weakness and was found to have potassium of 5.7 and elevated BNP. The patient was on Kayexalate and was transferred to [facility] in view of the patient's insurance. However, the family did not want to transfer with regard to his laboratories and came to [place]. The patient denies any nausea or vomiting. Denies any fever or chills. His ____ as well. The patient also has tachycardic with heart rate around 110 to 120s. REVIEW OF SYSTEM: His review of systems was performed and was negative other than what was mentioned in the history of present illness. PAST MEDICAL HISTORY: Includes: 1. Cirrhosis of the liver. 2. Ascites. 3. Cholelithiasis. 4. Hepatitis C. 5. Acute renal failure. 6. Status post paracentesis and the lung mass. 7. Diabetes. FAMILY HISTORY: Noncontributory. PHYSICAL EXAMINATION: VITAL SIGNS: Blood pressure is 145/79, ____ 160/92, pulse is 104, respirations 20, and temperature 96.6 degrees. HEAD AND NECK: Shows no JVD. LUNGS: Decreased breath sounds. CARDIOVASCULAR: Shows regular S1 and S2. Mildly tachycardic. ABDOMEN: Distended bowel sounds. EXTREMITIES: Has 2+ bilateral pitting edema. LABORATORY DATA: His labs show sodium 139, potassium 4.9, BUN of 43, creatinine 1.3, and glucose of 195. CBCs on 07/28/2016 shows white count 5.2, hemoglobin 12.4, hematocrit 37.5, and platelet count of 185,000. ASSESSMENT AND PLAN: 1. Hypertension. The patient is on Xarelto 10 mg daily, ___ continued. 2. Hyperlipidemia, on Lipitor and Lopid. 3. Diabetes, on metformin. 4. Hepatitis C. 5. Cirrhosis of the liver and ascites, status post paracentesis. 6. Azotemia, BUN of 43 and creatinine 1.3. 7. Mild elevation of liver function tests. . Thank you very much, Dr. Herbert, for allowing me to participate in the care of this patient. Please do not hesitate to contact me for any questions regarding my evaluation. Tarun Childs M.D. DR: DEN JOB#: [id number] CC:
--- NOTE | 2016-08-02 23:31 | History and Physical ---
History of Present Illness General Date patient seen: Aug 02, 2016 Reason for Hospitalization: Dyspnea/Respdistress Present Illness HPI 71 y/o male with history of liver cirrhosis, Hep C, ascites, DM, and HTN who presented to the ED with generalized weakness. He initially presented to [facility] ED and then came here. He was found to be hyperkalemic with K 5.6. This patient was just discharged from [facility] a couple of weeks ago. He had a suspicious mass in his lung concerning for cancer. He was admitted for further care. Allergies: Coded Allergies: PENICILLINS (Verified Allergy, Intermediate, 12/06/15) Medication History Scheduled Enalapril Maleate* (Enalapril Maleate*), 10 MG ORAL DAILY, (Reported) Gemfibrozil (Gemfibrozil*), 600 MG ORAL TWICE A DAY, (Reported) Hydrocodone Bit/Acetaminophen 10-325* (Hydrocodon-Acetaminophn 10-325*), 1 TAB ORAL Q12HR, (Reported) Insulin Glargine (Lantus), 0 SUBQ BEDTIME, (Reported) Lovastatin (Lovastatin), 20 MG ORAL BEDTIME, (Reported) Metformin Hcl* (Metformin Hcl*), 1,000 MG ORAL TWICE A DAY, (Reported) Omeprazole (Omeprazole), 20 MG ORAL DAILY, (Reported) Scheduled PRN Acetaminophen With Codeine (T#3) (Tylenol #3 Tab*), 1 TAB ORAL BID PRN for For Pain, (Reported) Patient History History Provided By: Patient Healthcare decision maker Resuscitation status Full Code Advanced Directive on File No Past Medical/Surgical History Past Medical/Surgical History: (1) Cirrhosis (2) Ascites (3) DM (diabetes mellitus) (4) Hepatitis C Review of Systems All Other Systems: negative except mentioned in HPI Physical Exam General Appearance: WD/WN, no apparent distress HEENT: normocephalic, atraumatic Neck: supple Respiratory/Chest: lungs clear Cardiovascular/Chest: normal rate, regular rhythm Abdomen: non tender, soft, distended Extremities: trace edema Neurologic: alert Last 24 Hour Vital Signs Date Time Temp Pulse Resp B/P Pulse Ox O2 Delivery O2 Flow Rate FiO2 08/02/16 20:00 96.0 99 21 155/92 98 Room Air 08/02/16 16:09 96.6 104 20 145/79 98 Room Air 08/02/16 16:00 102 08/02/16 12:42 163/92 08/02/16 12:03 97.1 107 20 163/92 99 Room Air 08/02/16 12:00 101 08/02/16 08:40 96.8 106 20 154/95 98 Room Air 08/02/16 08:00 94 08/02/16 06:00 96.8 105 18 162/85 99 Room Air 08/02/16 05:35 97.5 100 18 153/74 97 Room Air 08/02/16 05:34 97.5 100 18 153/74 97 Room Air 08/02/16 05:30 97.5 100 18 183/80 97 Room Air 08/02/16 05:10 167/72 08/02/16 05:02 97.5 101 18 155/74 97 Room Air 08/02/16 04:10 97.5 99 18 177/83 97 Room Air 08/02/16 01:40 105 18 Room Air 08/02/16 01:23 97.5 105 18 161/83 97 Room Air Intake and Output 08/01/16 08/02/16 19:00 07:00 Intake Total 0 ml Balance 0 ml Intake Oral 0 ml Laboratory Tests Test 08/02/16 02:55 Sodium Level 139 mEQ/L (135-145) Potassium Level 4.9 mEQ/L (3.4-4.9) Chloride Level 103 mEQ/L (98-107) Carbon Dioxide Level 17 mEQ/L (20-30) L Anion Gap 19 (5-15) H Blood Urea Nitrogen 46 mg/dL (7-23) H Creatinine 1.3 mg/dL (0.7-1.2) H Estimat Glomerular Filtration Rate mL/min (>60) Glucose Level 195 mg/dL (74-106) H Calcium Level 8.4 mg/dL (8.6-10.2) L Ammonia 31 umol/L (16-60) Height (Feet): 5 Height (Inches): 10.00 Weight (Pounds): 170 Medications Current Medications Medications (Trade) Dose Ordered Sig/Cammy Route PRN Reason Start Time Stop Time Status Last Admin Dose Admin Acetaminophen/ Codeine Phosphate (Tylenol #3) 1 tab Q6H PRN ORAL For Pain 08/02/16 11:30 08/09/16 11:29 08/02/16 17:04 Atorvastatin Calcium (Lipitor) 10 mg BEDTIME ORAL 08/02/16 21:00 09/01/16 20:59 08/02/16 21:13 Dextrose (Dextrose 50%) STAT PRN IV Hypoglycemia 08/02/16 18:15 09/01/16 18:14 Dextrose (Dextrose 50%) STAT PRN IV Hypoglycemia 08/02/16 19:30 09/01/16 19:29 Enalapril Maleate (Vasotec) 10 mg DAILY ORAL 08/02/16 12:00 09/01/16 11:59 08/02/16 12:42 Furosemide (Lasix) 40 mg EVERY 12 HOURS IV 08/02/16 21:00 09/01/16 20:59 08/02/16 21:13 Gemfibrozil (Lopid) 600 mg BID ORAL 08/02/16 18:00 09/01/16 17:59 08/02/16 17:02 Insulin Detemir (Levemir) 20 units BEDTIME SUBQ 08/02/16 21:00 09/01/16 20:59 08/02/16 21:13 Metformin HCl (Glucophage) 1,000 mg BID ORAL 08/02/16 13:00 09/01/16 12:59 08/02/16 17:03 Mirtazapine (Remeron) 7.5 mg BEDTIME ORAL 08/03/16 21:00 09/02/16 20:59 Pantoprazole (Protonix) 40 mg DAILY ORAL 08/02/16 12:00 09/01/16 11:59 08/02/16 12:41 Assessment/Plan Problem List: (1) Anemia ICD Codes: D64.9 - Anemia, unspecified SNOMED: 196985265 (2) Mass of right lung ICD Codes: R91.8 - Other nonspecific abnormal finding of lung field SNOMED: 181027533 (3) Acute hyperkalemia ICD Codes: E87.5 - Hyperkalemia SNOMED: 3972756 (4) Anemia in chronic illness ICD Codes: D63.8 - Anemia in other chronic diseases classified elsewhere SNOMED: 606820058 (5) Failure to thrive in adult ICD Codes: R62.7 - Adult failure to thrive SNOMED: 521885186 (6) Ascites ICD Codes: R18.8 - Other ascites SNOMED: 249453036 (7) Cirrhosis ICD Codes: K74.60 - Unspecified cirrhosis of liver SNOMED: 04333007 (8) Hepatitis C ICD Codes: B19.20 - Unspecified viral hepatitis C without hepatic coma SNOMED: 80701887 (9) DM (diabetes mellitus) ICD Codes: E11.9 - Type 2 diabetes mellitus without complications SNOMED: 71103690 Assessment/Plan Cardio and Pulm consult. Psych consult. Resume home meds. DVT ppx. MOnitor labs. EV NG Aug 02, 2016 23:31
[2016-08-03] VITALS (7 sets, daily range): BP systolic 140–162; BP diastolic 76–99
--- NOTE | 2016-08-03 03:15 | Consultation ---
DATE OF CONSULTATION: HISTORY OF PRESENT ILLNESS: The patient is a 71-year-old male with multiple medical problems and possibly lung cancer, who was admitted to the hospital. He is endorsing weakness and failure to thrive. During the evaluation, the patient is worried about his medical condition, has decreased appetite, and not engaged during the evaluation. He was he is diagnosed with cancer. PAST PSYCHIATRIC HISTORY: He has a history of anxiety disorder and depression. PAST MEDICAL HISTORY: Cirrhosis, lung mass, hypertension, and diabetes mellitus. ALLERGIES: No known drug allergies. SUBSTANCE ABUSE HISTORY: No history of illicit drug use or alcohol. MENTAL STATUS EXAMINATION: Alert and oriented x3. Mood is dysphoric. Affect is constricted. Congruent mood. Thought process is concrete. Thought content, no suicidal or homicidal ideation. ASSESSMENT: Volcano I Anxiety disorder. Volcano II Deferred. Volcano III Failure to thrive. Volcano IV Lung mass. Volcano V Global assessment of functioning is 50. PLAN: 1. We will start the patient on low dose of Remeron. 2. We will continue to follow and taper his medications. 3. Also monitor his symptoms. Zaria Treadwell M.D. DR: MILE JOB#: [id number] CC:
[2016-08-03 08:02] LABS: BASOPHILS % (AUTO) 0.9 % (0.0-2.0); EOSINOPHILS % (AUTO) 0.7 % (0.0-3.0); LYMPHOCYTES % (AUTO) 10.2 % (20.0-45.0); MEAN CORPUSCULAR HGB CONC 32.4 G/DL (32.0-36.0); MEAN CORPUSCULAR VOLUME 90 FL (80-99); MONOCYTES % (AUTO) 7.3 % (1.0-10.0); NEUTROPHILS % (AUTO) 80.9 % (45.0-75.0); PLATELET COUNT 214 K/UL (150-450); RED CELL DISTRIBUTION WIDTH 15.4 % (11.6-14.8); WHITE BLOOD COUNT 6.7 K/UL (4.8-10.8)
[2016-08-03 08:24] LABS: ANION GAP 16 (5-15); CALCIUM 8.7 mg/dL (8.6-10.2); CARBON DIOXIDE 21 mEQ/L (20-30); CHLORIDE 102 mEQ/L (98-107); CREATININE 1.5 mg/dL (0.7-1.2); HEMOLYSIS 1; POTASSIUM 4.8 mEQ/L (3.4-4.9); SODIUM 139 mEQ/L (135-145); TROPONIN I < 0.30 ng/mL (<=0.30)
[2016-08-03 08:31] LABS: THYROID STIMULATING HORMONE 0.988 uIU/mL (0.300-4.500)
[2016-08-03] MEDS: metFORMIN 500mg tab ORAL SCH ×2 (08:46→17:26)
--- NOTE | 2016-08-03 08:50 | Pulmonology Progress Note ---
Assessment/Plan Assessment/Plan IMPRESSION: 1. Right rib lesion/lung mass. 2. Cirrhosis with ascites. DISCUSSION: We will admit to the hospital. We will again request a CT-guided biopsy of rib mass. 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 Subjective Interval Events: None Constitutional: Reports: no symptoms HEENT: Repors: no symptoms Respiratory: Reports: no symptoms Cardiovascular: Reports: no symptoms Allergies: Coded Allergies: PENICILLINS (Verified Allergy, Intermediate, 12/06/15) Objective Last 24 Hour Vital Signs Date Time Temp Pulse Resp B/P Pulse Ox O2 Delivery O2 Flow Rate FiO2 08/03/16 08:46 149/76 08/03/16 08:06 96.6 107 18 149/76 100 Nasal Cannula 2.0 08/03/16 04:00 97.7 99 19 150/80 99 Nasal Cannula 2.0 08/03/16 04:00 101 08/03/16 00:00 96 08/03/16 00:00 97.9 99 19 151/87 99 Nasal Cannula 2.0 08/02/16 20:00 96.0 99 21 155/92 98 Room Air 08/02/16 20:00 99 08/02/16 16:09 96.6 104 20 145/79 98 Room Air 08/02/16 16:00 102 08/02/16 12:42 163/92 08/02/16 12:03 97.1 107 20 163/92 99 Room Air 08/02/16 12:00 101 Intake and Output 08/02/16 08/03/16 19:00 07:00 Intake Total 600 ml Output Total 400 ml Balance 200 ml Intake Oral 600 ml Output Urine Total 400 ml # Voids 1 5 # Bowel Movements 1 2 General Appearance: no acute distress HEENT: normocephalic Respiratory/Chest: chest wall non-tender, decreased breath sounds Cardiovascular: normal peripheral pulses, normal rate Abdomen: normal bowel sounds, soft, non tender Laboratory Tests 08/03/16 07:12: White Blood Count 6.7, Red Blood Count 3.70L, Hemoglobin 10.7L, Hematocrit 33.2L , Mean Corpuscular Volume 90, Mean Corpuscular Hemoglobin 29.0, Mean Corpuscular Hemoglobin Concent 32.4, Red Cell Distribution Width 15.4H, Platelet Count 214, Mean Platelet Volume 6.0L, Neutrophils (%) (Auto) 80.9H, Lymphocytes (%) (Auto) 10.2L, Monocytes (%) (Auto) 7.3, Eosinophils (%) (Auto) 0.7, Basophils (%) (Auto) 0.9, Prothrombin Time 10.0, Prothromb Time International Ratio 1.0, Sodium Level 139, Potassium Level 4.8, Chloride Level 102, Carbon Dioxide Level 21, Anion Gap 16H, Blood Urea Nitrogen 49H, Creatinine 1.5H, Estimat Glomerular Filtration Rate , Glucose Level 83#, Calcium Level 8.7, Troponin I < 0.30, Pro-B-Type Natriuretic Peptide 2202H, Thyroid Stimulating Hormone (TSH) 0.988, Free Thyroxine 0.89 Current Medications Medications (Trade) Dose Ordered Sig/Cammy Route PRN Reason Start Time Stop Time Status Last Admin Dose Admin Acetaminophen/ Codeine Phosphate (Tylenol #3) 1 tab Q6H PRN ORAL For Pain 08/02/16 11:30 08/09/16 11:29 08/02/16 17:04 Atorvastatin Calcium (Lipitor) 10 mg BEDTIME ORAL 08/02/16 21:00 09/01/16 20:59 08/02/16 21:13 Dextrose (Dextrose 50%) STAT PRN IV Hypoglycemia 08/02/16 18:15 09/01/16 18:14 Dextrose (Dextrose 50%) STAT PRN IV Hypoglycemia 08/02/16 19:30 09/01/16 19:29 Enalapril Maleate (Vasotec) 10 mg DAILY ORAL 08/02/16 12:00 09/01/16 11:59 08/03/16 08:46 Furosemide (Lasix) 40 mg EVERY 12 HOURS IV 08/02/16 21:00 09/01/16 20:59 08/03/16 08:46 Gemfibrozil (Lopid) 600 mg BID ORAL 08/02/16 18:00 09/01/16 17:59 08/03/16 08:46 Insulin Detemir (Levemir) 20 units BEDTIME SUBQ 08/02/16 21:00 09/01/16 20:59 08/02/16 21:13 Metformin HCl (Glucophage) 1,000 mg BID ORAL 08/02/16 13:00 09/01/16 12:59 08/03/16 08:46 Mirtazapine (Remeron) 7.5 mg BEDTIME ORAL 08/03/16 21:00 09/02/16 20:59 Pantoprazole (Protonix) 40 mg DAILY ORAL 08/02/16 12:00 09/01/16 11:59 08/03/16 08:46 Dante Dasilva MD Aug 03, 2016 08:50
--- NOTE | 2016-08-03 12:30 | Cardiac Electrophysiology PN ---
Assessment/Plan Assessment/Plan 1. Hypertension. On Vasotec 10 mg daily and Lasix 40 iv bid. TTE pending. 2. Hyperlipidemia, on Lipitor and Lopid. 3. Diabetes, on metformin. 4. Hepatitis C. 5. Cirrhosis of the liver and ascites, status post paracentesis. 6. Azotemia, BUN of 43 and creatinine 1.3. 7. Mild elevation of liver function tests. KENIA RN Subjective Subjective Getting his echo done today. SOB better. Objective Last 24 Hour Vital Signs Date Time Temp Pulse Resp B/P Pulse Ox O2 Delivery O2 Flow Rate FiO2 08/03/16 08:46 149/76 08/03/16 08:06 96.6 107 18 149/76 100 Nasal Cannula 2.0 08/03/16 08:00 106 08/03/16 04:00 97.7 99 19 150/80 99 Nasal Cannula 2.0 08/03/16 04:00 101 08/03/16 00:00 96 08/03/16 00:00 97.9 99 19 151/87 99 Nasal Cannula 2.0 08/02/16 20:00 96.0 99 21 155/92 98 Room Air 08/02/16 20:00 99 08/02/16 16:09 96.6 104 20 145/79 98 Room Air 08/02/16 16:00 102 08/02/16 12:42 163/92 Intake and Output 08/02/16 08/03/16 19:00 07:00 Intake Total 600 ml Output Total 400 ml Balance 200 ml Intake Oral 600 ml Output Urine Total 400 ml # Voids 1 5 # Bowel Movements 1 2 Laboratory Tests Test 08/03/16 07:12 White Blood Count 6.7 K/UL (4.8-10.8) Red Blood Count 3.70 M/UL (4.70-6.10) L Hemoglobin 10.7 G/DL (14.2-18.0) L Hematocrit 33.2 % (42.0-52.0) L Mean Corpuscular Volume 90 FL (80-99) Mean Corpuscular Hemoglobin 29.0 PG (27.0-31.0) Mean Corpuscular Hemoglobin Concent 32.4 G/DL (32.0-36.0) Red Cell Distribution Width 15.4 % (11.6-14.8) H Platelet Count 214 K/UL (150-450) Mean Platelet Volume 6.0 FL (6.5-10.1) L Neutrophils (%) (Auto) 80.9 % (45.0-75.0) H Lymphocytes (%) (Auto) 10.2 % (20.0-45.0) L Monocytes (%) (Auto) 7.3 % (1.0-10.0) Eosinophils (%) (Auto) 0.7 % (0.0-3.0) Basophils (%) (Auto) 0.9 % (0.0-2.0) Prothrombin Time 10.0 SEC (9.30-11.50) Prothromb Time International Ratio 1.0 (0.9-1.1) Sodium Level 139 mEQ/L (135-145) Potassium Level 4.8 mEQ/L (3.4-4.9) Chloride Level 102 mEQ/L (98-107) Carbon Dioxide Level 21 mEQ/L (20-30) Anion Gap 16 (5-15) H Blood Urea Nitrogen 49 mg/dL (7-23) H Creatinine 1.5 mg/dL (0.7-1.2) H Estimat Glomerular Filtration Rate mL/min (>60) Glucose Level 83 mg/dL (74-106) # Calcium Level 8.7 mg/dL (8.6-10.2) Troponin I < 0.30 ng/mL (<=0.30) Pro-B-Type Natriuretic Peptide 2202 pg/mL (0-125) H Thyroid Stimulating Hormone (TSH) 0.988 uIU/mL (0.300-4.500) Free Thyroxine 0.89 ng/dL (0.86-1.85) Objective HEAD AND NECK: Shows no JVD. LUNGS: Decreased breath sounds. CARDIOVASCULAR: Shows regular S1 and S2. Mildly tachycardic. ABDOMEN: Distended EXTREMITIES: Has 2+ bilateral pitting edema. NADER BACK Aug 03, 2016 12:30
--- NOTE | 2016-08-03 15:35 | Cardiology Report ---
APPROVED REPORT EXAM: Two-dimensional and M-mode echocardiogram with Doppler and color Doppler. INDICATION Congestive Heart Failure Other Information Technically limited study due to poor acoustical windows. M-mode measurements of left ventricle not obtainable due to cardiac position (angle) Normal left ventricular chamber size, systolic function and wall motion to extent visualized. Left ventricular ejection fraction estimated to be 55 %. Study quality precludes accurate assessment of regional wall motion. Mild left ventricular hypertrophy by 2-D. No evidence of pericardial effusion. Mild left atrial enlargement. Right cardiac chamber sizes are within normal limits. Focal aortic valve sclerosis with adequate cusp excursion. Thickened mitral valve leaflets with normal excursion. Mitral annulus and aortic root calcification. Pulmonic valve not well visualized. Normal tricuspid valve structure. IVC at normal size with physiologic collapse. A color flow and spectral Doppler study was performed and revealed: Trace mitral regurgitation. Mitral diastolic velocities suggest reduced left ventricular relaxation c/w mild LV diastolic dysfunction (Grade I ). Mild to moderate tricuspid regurgitation. Tricuspid systolic velocities suggests peak right ventricular systolic pressure of 56 mmHg, consistent with moderate pulmonary hypertension.
[2016-08-03] MEDS ORDERED: HYDROmorphone 1mg/ml Carpuject IVP PRN (20:45)
[2016-08-03] MEDS: Furosemide 40mg tab ORAL SCH (22:27)
[2016-08-03] MEDS: Levemir Flexpen SUBQ SCH (22:28)
[2016-08-03] MEDS: HYDROmorphone 1mg/ml Carpuject SUBQ PRN (22:30)
[2016-08-04 04:02] VITALS: BP 148/77
[2016-08-04 08:00] VITALS: BP 134/74
[2016-08-04] MEDS: Furosemide 40mg tab ORAL SCH ×2 (09:25→21:06)
[2016-08-04] MEDS: metFORMIN 500mg tab ORAL SCH ×2 (09:25→17:09)
--- NOTE | 2016-08-04 11:45 | Progress Note ---
SUBJECTIVE: The patient is doing well. No behavior issues. Calm and cooperative. Compliant with medications. No anxiety or agitation. MENTAL STATUS EXAMINATION: Alert and oriented to time, self, place, and situation. Mood is dysphoric. Affect is constricted. Congruent mood. Thought process is concrete. Thought content, no suicidal or homicidal ideation. ASSESSMENT: Delirium and depression. PLAN: 1. The patient will be continued on Remeron 7.5 mg at bedtime. 2. We will continue to follow and readjust the medications. Zaria Treadwell M.D. DR: Rosa JOB#: [id number] CC:
[2016-08-04 12:00] VITALS: BP 146/76
--- NOTE | 2016-08-04 15:42 | Cardiac Electrophysiology PN ---
Assessment/Plan Status Narrative visualized. Left ventricular ejection fraction estimated to be 55 %. Study quality precludes accurate assessment of regional wall motion. Mild left ventricular hypertrophy by 2-D. No evidence of pericardial effusion. Mild left atrial enlargement. Right cardiac chamber sizes are within normal limits. Focal aortic valve sclerosis with adequate cusp excursion. Thickened mitral valve leaflets with normal excursion. Mitral annulus and aortic root calcification. Pulmonic valve not well visualized. Normal tricuspid valve structure. IVC at normal size with physiologic collapse. Assessment/Plan 1. Hypertension. On Vasotec 10 mg daily and Lasix 40 po bid. Echo EF 55%.. 2. Hyperlipidemia, on Lipitor and Lopid. 3. Diabetes, on metformin. 4. Hepatitis C. 5. Cirrhosis of the liver and ascites, status post paracentesis. 6. Azotemia, BUN of 43 and creatinine 1.3. 7. Mild elevation of liver function tests. 8. CT-guided biopsy of rib mass per Dr Apple. DW RN Subjective Subjective No arrhythmias on tele.. SOB better.In SR. Objective Last 24 Hour Vital Signs Date Time Temp Pulse Resp B/P Pulse Ox O2 Delivery O2 Flow Rate FiO2 08/04/16 12:00 97.5 106 19 146/76 96 Room Air 08/04/16 12:00 110 08/04/16 09:25 134/74 08/04/16 08:00 96.8 105 19 134/74 96 Room Air 08/04/16 08:00 104 08/04/16 04:02 98.1 106 19 148/77 94 Room Air 08/04/16 04:00 108 08/04/16 00:00 110 08/03/16 23:46 97.8 110 20 150/86 94 Room Air 08/03/16 20:00 106 08/03/16 19:53 97.0 106 21 140/78 97 Room Air 08/03/16 16:00 108 08/03/16 16:00 96.1 106 20 155/90 97 Nasal Cannula Intake and Output 08/03/16 08/04/16 19:00 07:00 Intake Total 540 ml Output Total 600 ml Balance -60 ml Intake Oral 540 ml Output Urine Total 600 ml # Voids 2 # Bowel Movements 1 Microbiology Date/Time Source Procedure Growth Status 08/02/16 02:50 Nasal Nares MRSA Culture - Final NO METHICILLIN RESISTANT STAPH AUREUS... Complete 08/02/16 02:50 Rectum VRE Culture - Final NO VANCOMYCIN RESISTANT ENTEROCOCCUS ... Complete Objective HEAD AND NECK: Shows no JVD. LUNGS: Decreased breath sounds. CARDIOVASCULAR: Shows regular S1 and S2. Mildly tachycardic. ABDOMEN: Distended EXTREMITIES: Has 2+ bilateral pitting edema. NADER BACK Aug 04, 2016 15:42
[2016-08-04 16:00] VITALS: BP 143/79
--- NOTE | 2016-08-04 17:12 | Consultation ---
Consult Note Consult Note Hematology/Onc Consult RFC: Hepatocellular carcinoma, metastatic REQ : Piedad DOS: 08/04/16 ID 71-year-old male with PMH for DM and Hepatitis C who presented to the ED c/o weakness/FTT. He states the last month he's been feeling increasingly more weak. He reported that he had a hard time getting out of bed prior to admission. Denies any chest pain or shortness of breath. Denies any fevers or chills. Denies any changes in appetite. No other aggravating or relieving factors. Denies any other associated symptoms. In the ED, he had some renal insufficiency and hyperkalemia. He was admitted for further management. Noted to have a lung mass and onc consulted. A CT-guided biopsy showed HC ca per IHC staning Allergies: PENICILLINS (Verified Allergy, Intermediate, 12/06/15) Meds Enalapril Maleate* (Enalapril Maleate*), 10 MG ORAL DAILY, (Reported) Gemfibrozil (Gemfibrozil*), 600 MG ORAL TWICE A DAY, (Reported) Lovastatin (Lovastatin), 20 MG ORAL BEDTIME, (Reported) Metformin Hcl* (Metformin Hcl*), 1,000 MG ORAL TWICE A DAY, (Reported) Past Medical/Surgical History: (1) DM (diabetes mellitus) ROS: Constitutional: weakness, ftt Skin: No rashes, lumps, itchiness, dryness HEENT: No DICKINSON, ear ache, visual changes, double vision, nosebleeds, sore throat, lumps, swollen glands Breasts: No lumps, pain, discharge Pulmonary: No cough, sputum, shortness of breath, coughing up blood, hemoptysis Cardiovascular: No chest pain, tightness, palpitations, syncope, claudication, orthopnea, PND GI: No nausea, vomiting, diarrhea, melena, hematochezia, change in appetite, abdominal pain : No dysuria, frequency, urgency, urinary incontinence, foamy urine Musculoskeletal: No joint swelling or muscle pain, trauma, back pain Neurologic: No dizziness, fainting, seizures, changes in smell or taste Psychiatric: No nervousness, stress, or depression, anxiety, hallucinations Endocrine: No weight change, heat or cold intolerance, tremor, insomnia PE: General Appearance: A+O x3, NAD HEENT: normocephalic, atraumatic Neck: non-tender, normal alignment Respiratory/Chest: chest wall non-tender, lungs clear Cardiovascular/Chest: normal peripheral pulses, normal rate Abdomen: normal bowel sounds, non tender Extremities: normal range of motion Last 24 Hour Vital Signs Date Time Temp Pulse Resp B/P Pulse Ox O2 Delivery O2 Flow Rate FiO2 08/04/16 16:00 97.7 105 18 143/79 97 Room Air 08/04/16 12:00 97.5 106 19 146/76 96 Room Air 08/04/16 12:00 110 08/04/16 09:25 134/74 08/04/16 08:00 96.8 105 19 134/74 96 Room Air 08/04/16 08:00 104 08/04/16 04:02 98.1 106 19 148/77 94 Room Air 08/04/16 04:00 108 08/04/16 00:00 110 08/03/16 23:46 97.8 110 20 150/86 94 Room Air 08/03/16 20:00 106 08/03/16 19:53 97.0 106 21 140/78 97 Room Air Labs reviewed Current Medications Medications (Trade) Dose Ordered Sig/Cammy Route PRN Reason Start Time Stop Time Status Last Admin Dose Admin Acetaminophen (Tylenol) 650 mg Q4H PRN ORAL Mild Pain (Pain Scale 1-3) 07/23/16 22:45 08/22/16 22:44 Dextrose (Dextrose 50%) STAT PRN IV Hypoglycemia 07/23/16 22:45 08/22/16 22:44 Diphenhydramine HCl (Benadryl) 25 mg Q6H PRN ORAL Itching/Pruritis 07/23/16 22:45 08/22/16 22:44 Enalapril Maleate (Vasotec) 10 mg BID ORAL 07/24/16 09:00 08/23/16 08:59 07/24/16 17:05 Gemfibrozil 600 mg 600 mg TWICE A DAY ORAL 07/24/16 09:00 08/23/16 08:59 07/24/16 17:05 Heparin Sodium (Porcine) (Heparin 5000 units/ml) 5,000 units EVERY 12 HOURS SUBQ 07/24/16 09:00 08/23/16 08:59 6/11/17 21:06 Hydromorphone HCl (Dilaudid) 2 mg Q6HR PRN ORAL for severe pain 07/24/16 20:45 07/31/16 20:44 07/24/16 20:55 Insulin Aspart (NovoLOG) BEFORE MEALS AND HS SUBQ 07/24/16 06:30 08/23/16 06:29 07/24/16 21:05 Losartan Potassium (Cozaar) 50 mg Q12H PRN ORAL For High Blood Pressure 07/24/16 07:15 08/23/16 07:14 Ondansetron HCl (Zofran) 4 mg Q6H PRN IVP Nausea & Vomiting 07/23/16 22:45 08/22/16 22:44 Sodium Chloride (0.45% NS 1000ml) 1,000 ml @ 75 mls/hr [id number] IV 07/23/16 22:45 08/22/16 22:44 07/24/16 12:41 Zolpidem Tartrate (Ambien) 5 mg DAILYPRN PRN ORAL Insomnia 07/23/16 22:45 08/22/16 22:44 Assessment/Recs # Metastatic hepatocellular carcinoma with bony metastasis, based on IHC immunohistochemistry staining, with a hx of hepatitis C, Asparginase++ as is Hepar1++, will need to stain also for AFP ---> outpatient f/u with Dr. Garvin, given insurance, O-contracted ---> may benefit from sorafenib, discuss with patient since diagnosis now confirmed # Cirrhosis. Ascites. Sonographic Gonzalez's sign is positive. This raises the possibility of acute cholecystitis. . # Hx of Hep C s/p paracentesis yielding 1L of fluid, fu labs r/o SBP # FTT - secondary to malignancy # Anemia of chronic disease # Coagulopathy 2/2 cirrhosis # JERARDO # Hyperkalameia # Sheldon Ortez Aug 04, 2016 17:12
--- NOTE | 2016-08-04 17:15 | Progress Note ---
DATE: 08/04/2016 SUBJECTIVE: The patient is seen in the telemetry unit. A lung biopsy had been requested, however, the family declines stating that he has lung biopsy, possibly admitted to the hospital, although I am unable to find a pathology report. The patient remains unchanged. . OBJECTIVE: ABDOMEN: Soft. EXTREMITIES: No edema. IMPRESSION: Lung mass, apparently status post lung biopsy. Pathology unavailable. DISCUSSION: Discussed with the nursing staff. We will attempt the procedure of biopsy results. . Oncology will follow up. Dante Dasilva M.D. DR: ADRYAN JOB#: [id number] CC:
[2016-08-04] MEDS: HYDROmorphone 1mg/ml Carpuject SUBQ PRN ×2 (17:23→21:19)
[2016-08-04 20:10] VITALS: BP 166/77
[2016-08-04] MEDS: Levemir Flexpen SUBQ SCH (21:00)
--- NOTE | 2016-08-04 22:21 | Nephrology Progress Note ---
Assessment/Plan Problem List: (1) Anemia (2) Mass of right lung (3) Acute hyperkalemia (4) Anemia in chronic illness (5) Failure to thrive in adult (6) Ascites (7) Cirrhosis (8) Hepatitis C (9) DM (diabetes mellitus) Plan pulm following. cardio following. monitor labs. f/u pending lung bx. Subjective Subjective late entry for 08/03 - pending CT guided lung bx? Objective Objective Last 24 Hour Vital Signs Date Time Temp Pulse Resp B/P Pulse Ox O2 Delivery O2 Flow Rate FiO2 08/04/16 20:10 97.7 106 20 166/77 98 Room Air 08/04/16 16:00 97.7 105 18 143/79 97 Room Air 08/04/16 16:00 107 08/04/16 12:00 97.5 106 19 146/76 96 Room Air 08/04/16 12:00 110 08/04/16 09:25 134/74 08/04/16 08:00 96.8 105 19 134/74 96 Room Air 08/04/16 08:00 104 08/04/16 04:02 98.1 106 19 148/77 94 Room Air 08/04/16 04:00 108 08/04/16 00:00 110 08/03/16 23:46 97.8 110 20 150/86 94 Room Air Intake and Output 08/03/16 08/04/16 19:00 07:00 Intake Total 540 ml Output Total 600 ml Balance -60 ml Intake Oral 540 ml Output Urine Total 600 ml # Voids 2 # Bowel Movements 1 Height (Feet): 5 Height (Inches): 10.00 Weight (Pounds): 165 General Appearance: no apparent distress Cardiovascular: normal rate, regular rhythm Respiratory/Chest: lungs clear Abdomen: non tender, soft, distended Neurologic: alert EV NG Aug 04, 2016 22:21
--- NOTE | 2016-08-04 22:22 | Nephrology Progress Note ---
Assessment/Plan Problem List: (1) Anemia (2) Mass of right lung (3) Acute hyperkalemia (4) Anemia in chronic illness (5) Failure to thrive in adult (6) Ascites (7) Cirrhosis (8) Hepatitis C (9) DM (diabetes mellitus) Plan pulm following. cardio following. monitor labs. d/c plan soon Subjective Subjective family refusing lung bx as it was done already Objective Objective Last 24 Hour Vital Signs Date Time Temp Pulse Resp B/P Pulse Ox O2 Delivery O2 Flow Rate FiO2 08/04/16 20:10 97.7 106 20 166/77 98 Room Air 08/04/16 16:00 97.7 105 18 143/79 97 Room Air 08/04/16 16:00 107 08/04/16 12:00 97.5 106 19 146/76 96 Room Air 08/04/16 12:00 110 08/04/16 09:25 134/74 08/04/16 08:00 96.8 105 19 134/74 96 Room Air 08/04/16 08:00 104 08/04/16 04:02 98.1 106 19 148/77 94 Room Air 08/04/16 04:00 108 08/04/16 00:00 110 08/03/16 23:46 97.8 110 20 150/86 94 Room Air Intake and Output 08/03/16 08/04/16 19:00 07:00 Intake Total 540 ml Output Total 600 ml Balance -60 ml Intake Oral 540 ml Output Urine Total 600 ml # Voids 2 # Bowel Movements 1 Height (Feet): 5 Height (Inches): 10.00 Weight (Pounds): 165 General Appearance: no apparent distress Cardiovascular: normal rate, regular rhythm Respiratory/Chest: lungs clear Abdomen: non tender, soft, distended Extremities: trace edema EV NG Aug 04, 2016 22:22
[2016-08-04 23:49] VITALS: BP 132/76
[2016-08-05 03:45] VITALS: BP 142/76
[2016-08-05] MEDS: HYDROmorphone 1mg/ml Carpuject SUBQ PRN ×5 (04:44→23:18)
[2016-08-05 08:30] VITALS: BP 153/79
[2016-08-05] MEDS: metFORMIN 500mg tab ORAL SCH ×2 (09:34→17:43)
[2016-08-05] MEDS: Furosemide 40mg tab ORAL SCH ×2 (09:34→21:19)
[2016-08-05] MEDS ORDERED: Tubing IV Secondary IV ONE (10:03)
[2016-08-05 12:15] VITALS: BP 154/80
--- NOTE | 2016-08-05 12:22 | Pulmonology Progress Note ---
Assessment/Plan Assessment/Plan Metastatic hepatocellular carcinoma with bone, lung metastases hepatitis C Cirrhosis. Ascites Anemia of chronic disease Coagulopathy 2/2 cirrhosis JERARDO Hyperkalameia DM No need for additional biopsies rx per oncology recommendations Subjective Constitutional: Reports: anorexia, fatigue - a Respiratory: Denies: shortness of breath Cardiovascular: Denies: chest pain Allergies: Coded Allergies: PENICILLINS (Verified Allergy, Intermediate, 12/06/15) Objective Last 24 Hour Vital Signs Date Time Temp Pulse Resp B/P Pulse Ox O2 Delivery O2 Flow Rate FiO2 08/05/16 09:35 153/79 08/05/16 08:30 97.0 106 19 153/79 94 Room Air 08/05/16 07:55 102 08/05/16 04:00 103 08/05/16 03:45 98.8 102 21 142/76 98 Room Air 08/05/16 00:00 104 08/04/16 23:49 98.1 104 19 132/76 97 Room Air 08/04/16 20:10 97.7 106 20 166/77 98 Room Air 08/04/16 20:00 105 08/04/16 16:00 97.7 105 18 143/79 97 Room Air 08/04/16 16:00 107 Intake and Output 08/04/16 08/05/16 19:00 07:00 Intake Total 180 ml Output Total 550 ml Balance -370 ml Intake Oral 180 ml Output Urine Total 550 ml # Voids 2 General Appearance: no acute distress, cachetic Respiratory/Chest: lungs clear Cardiovascular: normal rate Abdomen: soft, non tender Current Medications Medications (Trade) Dose Ordered Sig/Cammy Route PRN Reason Start Time Stop Time Status Last Admin Dose Admin Atorvastatin Calcium (Lipitor) 10 mg BEDTIME ORAL 08/02/16 21:00 09/01/16 20:59 08/04/16 21:07 Dextrose (Dextrose 50%) STAT PRN IV Hypoglycemia 08/02/16 18:15 09/01/16 18:14 Dextrose (Dextrose 50%) STAT PRN IV Hypoglycemia 08/02/16 19:30 09/01/16 19:29 Enalapril Maleate (Vasotec) 10 mg DAILY ORAL 08/02/16 12:00 09/01/16 11:59 08/05/16 09:35 Furosemide (Lasix) 40 mg EVERY 12 HOURS ORAL 08/03/16 22:15 09/02/16 22:14 08/05/16 09:34 Gemfibrozil (Lopid) 600 mg BID ORAL 08/02/16 18:00 09/01/16 17:59 08/05/16 09:35 Hydromorphone HCl (Dilaudid) 1 mg Q4H PRN SUBQ For Pain 08/03/16 22:15 08/10/16 22:14 08/05/16 04:44 Insulin Detemir (Levemir) 20 units BEDTIME SUBQ 08/02/16 21:00 09/01/16 20:59 08/03/16 22:28 Metformin HCl (Glucophage) 1,000 mg BID ORAL 08/02/16 13:00 09/01/16 12:59 08/05/16 09:34 Mirtazapine (Remeron) 7.5 mg BEDTIME ORAL 08/03/16 21:00 09/02/16 20:59 08/04/16 21:06 Ondansetron HCl (Zofran ODT) 4 mg EVERY 4 HOURS PRN SL Nausea & Vomiting 08/03/16 22:15 09/02/16 22:14 08/04/16 17:27 Pantoprazole (Protonix) 40 mg DAILY ORAL 08/02/16 12:00 09/01/16 11:59 08/05/16 09:34 TRACI BUCHANAN 23, 2017 12:22
--- NOTE | 2016-08-05 14:37 | Cardiac Electrophysiology PN ---
Assessment/Plan Status Narrative visualized. Left ventricular ejection fraction estimated to be 55 %. Study quality precludes accurate assessment of regional wall motion. Mild left ventricular hypertrophy by 2-D. No evidence of pericardial effusion. Mild left atrial enlargement. Right cardiac chamber sizes are within normal limits. Focal aortic valve sclerosis with adequate cusp excursion. Thickened mitral valve leaflets with normal excursion. Mitral annulus and aortic root calcification. Pulmonic valve not well visualized. Normal tricuspid valve structure. IVC at normal size with physiologic collapse. Assessment/Plan 1. Hypertension. On Vasotec 10 mg daily and Lasix 40 po bid. Echo EF 55%.. 2. Hyperlipidemia, on Lipitor and Lopid. 3. Diabetes, on metformin. 4. Hepatitis C. 5. Cirrhosis of the liver and ascites, status post paracentesis. 6. Azotemia, BUN of 43 and creatinine 1.3. 7. Mild elevation of liver function tests. 8. Metastatic hepatocellular carcinoma with bone, lung metastases. S/P CT- guided biopsy of rib Dr Burgos following DW RN Subjective Subjective No arrhythmias on tele. SOB better. at bedside Objective Last 24 Hour Vital Signs Date Time Temp Pulse Resp B/P Pulse Ox O2 Delivery O2 Flow Rate FiO2 08/05/16 12:57 97.0 08/05/16 12:15 96.3 113 19 154/80 98 Room Air 08/05/16 11:47 110 08/05/16 09:35 153/79 08/05/16 08:30 97.0 106 19 153/79 94 Room Air 08/05/16 07:55 102 08/05/16 04:00 103 08/05/16 03:45 98.8 102 21 142/76 98 Room Air 08/05/16 00:00 104 08/04/16 23:49 98.1 104 19 132/76 97 Room Air 08/04/16 20:10 97.7 106 20 166/77 98 Room Air 08/04/16 20:00 105 08/04/16 16:00 97.7 105 18 143/79 97 Room Air 08/04/16 16:00 107 Intake and Output 08/04/16 08/05/16 19:00 07:00 Intake Total 180 ml Output Total 550 ml Balance -370 ml Intake Oral 180 ml Output Urine Total 550 ml # Voids 2 Current Medications Medications (Trade) Dose Ordered Sig/Cammy Route PRN Reason Start Time Stop Time Status Last Admin Dose Admin Atorvastatin Calcium (Lipitor) 10 mg BEDTIME ORAL 08/02/16 21:00 09/01/16 20:59 08/04/16 21:07 Dextrose (Dextrose 50%) STAT PRN IV Hypoglycemia 08/02/16 18:15 09/01/16 18:14 Dextrose (Dextrose 50%) STAT PRN IV Hypoglycemia 08/02/16 19:30 09/01/16 19:29 Enalapril Maleate (Vasotec) 10 mg DAILY ORAL 08/02/16 12:00 09/01/16 11:59 08/05/16 09:35 Furosemide (Lasix) 40 mg EVERY 12 HOURS ORAL 08/03/16 22:15 09/02/16 22:14 08/05/16 09:34 Gemfibrozil (Lopid) 600 mg BID ORAL 08/02/16 18:00 09/01/16 17:59 08/05/16 09:35 Hydromorphone HCl (Dilaudid) 1 mg Q4H PRN SUBQ For Pain 08/03/16 22:15 08/10/16 22:14 08/05/16 12:27 Insulin Detemir (Levemir) 20 units BEDTIME SUBQ 08/02/16 21:00 09/01/16 20:59 08/03/16 22:28 Metformin HCl (Glucophage) 1,000 mg BID ORAL 08/02/16 13:00 09/01/16 12:59 08/05/16 09:34 Mirtazapine (Remeron) 7.5 mg BEDTIME ORAL 08/03/16 21:00 09/02/16 20:59 08/04/16 21:06 Ondansetron HCl (Zofran ODT) 4 mg EVERY 4 HOURS PRN SL Nausea & Vomiting 08/03/16 22:15 09/02/16 22:14 08/04/16 17:27 Pantoprazole (Protonix) 40 mg DAILY ORAL 08/02/16 12:00 09/01/16 11:59 08/05/16 09:34 Objective HEAD AND NECK: Shows no JVD. LUNGS: Decreased breath sounds. CARDIOVASCULAR: Shows regular S1 and S2. Mildly tachycardic. ABDOMEN: Distended EXTREMITIES: Has 2+ bilateral pitting edema. NADER BACK 23, 2017 14:37
--- NOTE | 2016-08-05 15:06 | General Progress Note ---
Assessment/Plan Assessment/Plan Assessment/Recs # Metastatic hepatocellular carcinoma with bony metastasis, based on IHC immunohistochemistry staining, with a hx of hepatitis C, Asparginase++ as is Hepar1++, will need to stain also for AFP ---> have had a extensive discussion with patient and (Michelle) and daughter (Bridger) a RN at [facility], at this time, family is very saddened ---> may benefit from sorafenib, discuss with patient since diagnosis now confirmed, this is a PO medication ---> will need outpatient followup and will need to improve in terms of ambulatory status prior to TKI (sorafenib) a PO medication ---> another option will be hospice, family considering if they want treatment versus alternative route # Cirrhosis. Ascites. Sonographic Gonzalez's sign is positive. This raises the possibility of acute cholecystitis. . # Hx of Hep C s/p paracentesis yielding 1L of fluid, fu labs r/o SBP # FTT - secondary to malignancy # Anemia of chronic disease # Coagulopathy 2/2 cirrhosis # JERARDO # Hyperkalameia # DM Subjective Constitutional: Reports: no symptoms HEENT: Reports: no symptoms Cardiovascular: Reports: no symptoms Respiratory: Reports: no symptoms Gastrointestinal/Abdominal: Reports: no symptoms Genitourinary: Reports: no symptoms Neurologic/Psychiatric: Reports: no symptoms Endocrine: Reports: unexplained weight gain Hematologic/Lymphatic: Reports: anemia Allergies: Coded Allergies: PENICILLINS (Verified Allergy, Intermediate, 12/06/15) Subjective stable, no fevers or chills noted, have discussed dx with and daughter Objective Last 24 Hour Vital Signs Date Time Temp Pulse Resp B/P Pulse Ox O2 Delivery O2 Flow Rate FiO2 08/05/16 12:57 97.0 08/05/16 12:15 96.3 113 19 154/80 98 Room Air 08/05/16 11:47 110 08/05/16 09:35 153/79 08/05/16 08:30 97.0 106 19 153/79 94 Room Air 08/05/16 07:55 102 08/05/16 04:00 103 08/05/16 03:45 98.8 102 21 142/76 98 Room Air 08/05/16 00:00 104 08/04/16 23:49 98.1 104 19 132/76 97 Room Air 08/04/16 20:10 97.7 106 20 166/77 98 Room Air 08/04/16 20:00 105 08/04/16 16:00 97.7 105 18 143/79 97 Room Air 08/04/16 16:00 107 Intake and Output 08/04/16 08/05/16 19:00 07:00 Intake Total 180 ml Output Total 550 ml Balance -370 ml Intake Oral 180 ml Output Urine Total 550 ml # Voids 2 Height (Feet): 5 Height (Inches): 10.00 Weight (Pounds): 170 General Appearance: no apparent distress EENT: TMs normal Neck: normal inspection Cardiovascular: regular rhythm Respiratory/Chest: chest wall non-tender Extremities: non-tender Edema: 1+ Leg (L), 1+ Leg (R) Edema: mild edema Neurologic: alert Skin: warm/dry Sheldon Horowitz Aug 05, 2016 15:06
[2016-08-05] MEDS ORDERED: HYDROmorphone 1mg/ml Carpuject SUBQ PRN ×2 (15:50→18:15)
[2016-08-05 15:59] VITALS: BP 140/75
--- NOTE | 2016-08-05 19:01 | Nephrology Progress Note ---
Assessment/Plan Problem List: (1) JERARDO (acute kidney injury) (2) Acute hyperkalemia (3) Encephalopathy acute (4) Ascites (5) Cirrhosis (6) Hepatitis C (7) DM (diabetes mellitus) (8) Mass of right lung (9) Cholecystitis (10) Lung mass Plan Monitor Renal function - avoid nephrotoxic agents Monitor lytes, correct prn Pain management Pulmo following Oncology following BP & BS control AM labs DC plan - SNF placement Subjective Constitutional: Denies: chills, diaphoresis, fever, malaise, no symptoms, other , weakness HEENT: Denies: blurred vision, double vision, ear discharge, ear pain, eye pain , mouth pain, mouth swelling, no symptoms, nose congestion, nose pain, other, tearing, throat pain, throat swelling Genitourinary: Denies: burning, discharge, flank pain, frequency, hematuria, incontinence, no symptoms, other, pain, urgency Neurologic/Psychiatric: Denies: anxiety, depressed, emotional problems, headache, no symptoms, numbness, other, paresthesia, pre-existing deficit, seizure, tingling, tremors, weakness Subjective In bed asleep, in no apparent distress, easily aroused, denies discomfort at this time Objective Objective Last 24 Hour Vital Signs Date Time Temp Pulse Resp B/P Pulse Ox O2 Delivery O2 Flow Rate FiO2 08/05/16 16:30 97.0 08/05/16 15:59 97.0 103 19 140/75 98 Room Air 08/05/16 15:11 106 08/05/16 12:57 97.0 08/05/16 12:15 96.3 113 19 154/80 98 Room Air 08/05/16 11:47 110 08/05/16 09:35 153/79 08/05/16 08:30 97.0 106 19 153/79 94 Room Air 08/05/16 07:55 102 08/05/16 04:00 103 08/05/16 03:45 98.8 102 21 142/76 98 Room Air 08/05/16 00:00 104 08/04/16 23:49 98.1 104 19 132/76 97 Room Air 08/04/16 20:10 97.7 106 20 166/77 98 Room Air 08/04/16 20:00 105 Intake and Output 08/04/16 08/05/16 19:00 07:00 Intake Total 180 ml Output Total 550 ml Balance -370 ml Intake Oral 180 ml Output Urine Total 550 ml # Voids 2 Height (Feet): 5 Height (Inches): 10.00 Weight (Pounds): 170 General Appearance: no apparent distress, alert EENT: normal ENT inspection Neck: normal alignment Cardiovascular: normal rate, regular rhythm Respiratory/Chest: decreased breath sounds Abdomen: decreased bowel sounds, distended Neurologic: alert, oriented x 3, responsive Paige Bhardwaj N.P. Aug 05, 2016 19:01
[2016-08-05 19:59] VITALS: BP 162/69
[2016-08-05] MEDS: oxyCONTIN 10mg tab ORAL SCH (21:20)
[2016-08-05] MEDS: Levemir Flexpen SUBQ SCH (21:21)
[2016-08-06] VITALS: BP 130/70
--- NOTE | 2016-08-06 00:30 | Progress Note ---
DATE: 08/05/2016 SUBJECTIVE: The patient is well and no behavior issues. The patient is medically unchanged since previous encounter. He continues to present with . OBJECTIVE: MENTAL STATUS EXAMINATION: The patient's mood is neutral. Affect is constricted. Congruent mood. Thought process, there is a paucity of thought content. Cognition is impaired. ASSESSMENT: Encephalopathy. PLAN: The patient will be continued on current medications. No medication changes. Zaria Treadwell M.D. DR: Figueroa JOB#: [id number] CC:
[2016-08-06] MEDS: HYDROmorphone 1mg/ml Carpuject SUBQ PRN ×5 (02:30→22:45)
[2016-08-06 04:00] VITALS: BP 138/75
[2016-08-06 08:00] VITALS: BP 150/79
[2016-08-06 08:30] LABS: MEAN CORPUSCULAR HEMOGLOBIN 29.1 PG (27.0-31.0); MEAN CORPUSCULAR HGB CONC 31.4 G/DL (32.0-36.0); MEAN CORPUSCULAR VOLUME 93 FL (80-99); MEAN PLATELET VOLUME 6.3 FL (6.5-10.1); PLATELET COUNT 278 K/UL (150-450); RED BLOOD COUNT 3.62 M/UL (4.70-6.10); RED CELL DISTRIBUTION WIDTH 15.3 % (11.6-14.8); WHITE BLOOD COUNT 9.5 K/UL (4.8-10.8)
[2016-08-06 08:45] LABS: ALANINE AMINOTRANSFERASE 44 U/L (3-41); ALBUMIN/GLOBULIN RATIO 0.5 (1.0-2.7); ANION GAP 16 (5-15); ASPARTATE AMINO TRANSFERASE 101 U/L (5-40); CALCIUM 8.9 mg/dL (8.6-10.2); CARBON DIOXIDE 23 mEQ/L (20-30); CHLORIDE 99 mEQ/L (98-107); CREATININE 1.9 mg/dL (0.7-1.2); HEMOLYSIS 1; POTASSIUM 5.1 mEQ/L (3.4-4.9); SODIUM 138 mEQ/L (135-145); TOTAL PROTEIN 6.2 g/dL (6.6-8.7)
[2016-08-06] MEDS: Furosemide 40mg tab ORAL SCH ×2 (09:05→21:00)
[2016-08-06] MEDS: metFORMIN 500mg tab ORAL SCH ×2 (09:05→17:50)
[2016-08-06] MEDS: oxyCONTIN 10mg tab ORAL SCH ×2 (09:07→21:17)
[2016-08-06 11:30] LABS: BAND NEUTROPHILS % (MANUAL) 0 % (0-8); BASOPHILS % (MANUAL) 0 % (0-2); EOSINOPHILS % (MANUAL) 0 % (0-3); HYPOCHROMASIA 1+; LYMPHOCYTES % (MANUAL) 9 % (20-45); NEUTROPHILS % (MANUAL) 85 % (45-75); PLATELET ESTIMATE ADEQUATE; PLATELET MORPHOLOGY NORMAL; TOTAL CELLS COUNTED 100
[2016-08-06 12:00] VITALS: BP 147/78
--- NOTE | 2016-08-06 13:22 | Cardiac Electrophysiology PN ---
Assessment/Plan Status Narrative visualized. Left ventricular ejection fraction estimated to be 55 %. Study quality precludes accurate assessment of regional wall motion. Mild left ventricular hypertrophy by 2-D. No evidence of pericardial effusion. Mild left atrial enlargement. Right cardiac chamber sizes are within normal limits. Focal aortic valve sclerosis with adequate cusp excursion. Thickened mitral valve leaflets with normal excursion. Mitral annulus and aortic root calcification. Pulmonic valve not well visualized. Normal tricuspid valve structure. IVC at normal size with physiologic collapse. Assessment/Plan 1. Hypertension. On Vasotec 10 mg daily and Lasix 40 po bid. Echo EF 55%.. 2. Hyperlipidemia, on Lipitor and Lopid. 3. Diabetes, on metformin. 4. Hepatitis C. 5. Cirrhosis of the liver and ascites, status post paracentesis. 6. Hepatorenal syndrome with BUN of 63 and creatinine 1.9.Follow up Dr Herbert 7. Mild elevation of liver function tests. 8. Metastatic hepatocellular carcinoma with bone, lung metastases. S/P CT- guided biopsy of rib. Dr Burgos following. On Dilaudid q3hrs KENIA RN Subjective Subjective No arrhythmias on tele.Awaiting DC to [facility].Comfortable in NAD. Objective Last 24 Hour Vital Signs Date Time Temp Pulse Resp B/P Pulse Ox O2 Delivery O2 Flow Rate FiO2 08/06/16 09:08 150/110 08/06/16 08:00 109 08/06/16 08:00 97.0 110 18 150/79 95 Room Air 08/06/16 04:00 98.0 105 18 138/75 97 Room Air 08/06/16 04:00 105 08/06/16 00:00 111 08/06/16 00:00 96.6 109 18 130/70 95 Room Air 08/05/16 20:00 113 08/05/16 19:59 98.8 110 21 162/69 94 Nasal Cannula 08/05/16 16:30 97.0 08/05/16 15:59 97.0 103 19 140/75 98 Room Air 08/05/16 15:11 106 Intake and Output 08/05/16 08/06/16 19:00 07:00 Intake Total 120 ml 200 ml Output Total 100 ml 400 ml Balance 20 ml -200 ml Intake Oral 120 ml 200 ml Output Urine Total 100 ml 400 ml # Voids 2 Laboratory Tests Test 08/06/16 07:50 White Blood Count 9.5 K/UL (4.8-10.8) Red Blood Count 3.62 M/UL (4.70-6.10) L Hemoglobin 10.5 G/DL (14.2-18.0) L Hematocrit 33.6 % (42.0-52.0) L Mean Corpuscular Volume 93 FL (80-99) Mean Corpuscular Hemoglobin 29.1 PG (27.0-31.0) Mean Corpuscular Hemoglobin Concent 31.4 G/DL (32.0-36.0) L Red Cell Distribution Width 15.3 % (11.6-14.8) H Platelet Count 278 K/UL (150-450) Mean Platelet Volume 6.3 FL (6.5-10.1) L Neutrophils (%) (Auto) % (45.0-75.0) Lymphocytes (%) (Auto) % (20.0-45.0) Monocytes (%) (Auto) % (1.0-10.0) Eosinophils (%) (Auto) % (0.0-3.0) Basophils (%) (Auto) % (0.0-2.0) Differential Total Cells Counted 100 Neutrophils % (Manual) 85 % (45-75) H Lymphocytes % (Manual) 9 % (20-45) L Monocytes % (Manual) 6 % (1-10) Eosinophils % (Manual) 0 % (0-3) Basophils % (Manual) 0 % (0-2) Band Neutrophils 0 % (0-8) Platelet Estimate Adequate Platelet Morphology Normal Hypochromasia 1+ Sodium Level 138 mEQ/L (135-145) Potassium Level 5.1 mEQ/L (3.4-4.9) H Chloride Level 99 mEQ/L (98-107) Carbon Dioxide Level 23 mEQ/L (20-30) Anion Gap 16 (5-15) H Blood Urea Nitrogen 63 mg/dL (7-23) H Creatinine 1.9 mg/dL (0.7-1.2) H Estimat Glomerular Filtration Rate mL/min (>60) Glucose Level 166 mg/dL (74-106) H Calcium Level 8.9 mg/dL (8.6-10.2) Total Bilirubin 0.9 mg/dL (0.0-1.2) Aspartate Amino Transf (AST/SGOT) 101 U/L (5-40) H Alanine Aminotransferase (ALT/SGPT) 44 U/L (3-41) H Alkaline Phosphatase 383 U/L (40-129) H Total Protein 6.2 g/dL (6.6-8.7) L Albumin 2.3 g/dL (3.5-5.2) L Globulin 3.9 g/dL Albumin/Globulin Ratio 0.5 (1.0-2.7) L Objective HEAD AND NECK: Shows no JVD. LUNGS: Decreased breath sounds. CARDIOVASCULAR: Shows regular S1 and S2. Mildly tachycardic. ABDOMEN: Distended EXTREMITIES: 2+ bilateral pitting edema. NADER BACK Aug 06, 2016 13:22
--- NOTE | 2016-08-06 13:24 | Pulmonology Progress Note ---
Assessment/Plan Assessment/Plan IMPRESSION: 1. Right rib lesion/lung mass. 2. Cirrhosis with ascites. 3. Metastatic HCC DISCUSSION: Will follow prn Dilaudid q 3 hrly Oncology following Subjective Interval Events: No new reported events Constitutional: Reports: no symptoms HEENT: Repors: no symptoms Respiratory: Reports: no symptoms Cardiovascular: Reports: no symptoms Gastrointestinal/Abdominal: Reports: no symptoms Allergies: Coded Allergies: PENICILLINS (Verified Allergy, Intermediate, 12/06/15) Objective Last 24 Hour Vital Signs Date Time Temp Pulse Resp B/P Pulse Ox O2 Delivery O2 Flow Rate FiO2 08/06/16 09:08 150/110 08/06/16 08:00 109 08/06/16 08:00 97.0 110 18 150/79 95 Room Air 08/06/16 04:00 98.0 105 18 138/75 97 Room Air 08/06/16 04:00 105 08/06/16 00:00 111 08/06/16 00:00 96.6 109 18 130/70 95 Room Air 08/05/16 20:00 113 08/05/16 19:59 98.8 110 21 162/69 94 Nasal Cannula 08/05/16 16:30 97.0 08/05/16 15:59 97.0 103 19 140/75 98 Room Air 08/05/16 15:11 106 Intake and Output 08/05/16 08/06/16 19:00 07:00 Intake Total 120 ml 200 ml Output Total 100 ml 400 ml Balance 20 ml -200 ml Intake Oral 120 ml 200 ml Output Urine Total 100 ml 400 ml # Voids 2 General Appearance: no acute distress HEENT: normocephalic Respiratory/Chest: chest wall non-tender, lungs clear Cardiovascular: normal peripheral pulses, normal rate Abdomen: normal bowel sounds Laboratory Tests 08/06/16 07:50: White Blood Count 9.5, Red Blood Count 3.62L, Hemoglobin 10.5L, Hematocrit 33.6L , Mean Corpuscular Volume 93, Mean Corpuscular Hemoglobin 29.1, Mean Corpuscular Hemoglobin Concent 31.4L, Red Cell Distribution Width 15.3H, Platelet Count 278, Mean Platelet Volume 6.3L, Neutrophils (%) (Auto) , Lymphocytes (%) (Auto) , Monocytes (%) (Auto) , Eosinophils (%) (Auto) , Basophils (%) (Auto) , Differential Total Cells Counted 100, Neutrophils % ( Manual) 85H, Lymphocytes % (Manual) 9L, Monocytes % (Manual) 6, Eosinophils % ( Manual) 0, Basophils % (Manual) 0, Band Neutrophils 0, Platelet Estimate Adequate, Platelet Morphology Normal, Hypochromasia 1+, Sodium Level 138, Potassium Level 5.1H, Chloride Level 99, Carbon Dioxide Level 23, Anion Gap 16H , Blood Urea Nitrogen 63H, Creatinine 1.9H, Estimat Glomerular Filtration Rate , Glucose Level 166H, Calcium Level 8.9, Total Bilirubin 0.9, Aspartate Amino Transf (AST/SGOT) 101H, Alanine Aminotransferase (ALT/SGPT) 44H, Alkaline Phosphatase 383H, Total Protein 6.2L, Albumin 2.3L, Globulin 3.9, Albumin/ Globulin Ratio 0.5L Current Medications Medications (Trade) Dose Ordered Sig/Cammy Route PRN Reason Start Time Stop Time Status Last Admin Dose Admin Atorvastatin Calcium (Lipitor) 10 mg BEDTIME ORAL 08/02/16 21:00 09/01/16 20:59 08/05/16 21:20 Dextrose (Dextrose 50%) STAT PRN IV Hypoglycemia 08/02/16 19:30 09/01/16 19:29 Enalapril Maleate (Vasotec) 10 mg DAILY ORAL 08/02/16 12:00 09/01/16 11:59 08/06/16 09:08 Furosemide (Lasix) 40 mg EVERY 12 HOURS ORAL 08/03/16 22:15 09/02/16 22:14 08/06/16 09:05 Gemfibrozil (Lopid) 600 mg BID ORAL 08/02/16 18:00 09/01/16 17:59 08/06/16 09:07 Hydromorphone HCl (Dilaudid) 2 mg Q3H PRN SUBQ For Pain 08/05/16 15:45 08/12/16 15:44 08/06/16 11:25 Insulin Detemir (Levemir) 20 units BEDTIME SUBQ 08/02/16 21:00 09/01/16 20:59 08/05/16 21:21 Metformin HCl (Glucophage) 1,000 mg BID ORAL 08/02/16 13:00 09/01/16 12:59 08/06/16 09:05 Mirtazapine (Remeron) 7.5 mg BEDTIME ORAL 08/03/16 21:00 09/02/16 20:59 08/05/16 21:19 Ondansetron HCl (Zofran ODT) 4 mg EVERY 4 HOURS PRN SL Nausea & Vomiting 08/03/16 22:15 09/02/16 22:14 08/04/16 17:27 Oxycodone HCl (OxyCONTIN) 10 mg Q12HR ORAL 08/05/16 21:00 08/12/16 20:59 08/06/16 09:07 Pantoprazole (Protonix) 40 mg DAILY ORAL 08/02/16 12:00 09/01/16 11:59 08/06/16 09:04 Dante Dasilva MD Aug 06, 2016 13:24
[2016-08-06 16:00] VITALS: BP 148/77
[2016-08-06 20:30] VITALS: BP 136/67
[2016-08-06] MEDS: Levemir Flexpen SUBQ SCH (21:13)
[2016-08-07 00:22] VITALS: BP 124/63
[2016-08-07 04:29] VITALS: BP 113/69
[2016-08-07 08:00] VITALS: BP 114/55
[2016-08-07] MEDS: metFORMIN 500mg tab ORAL SCH ×2 (08:48→17:13)
[2016-08-07] MEDS: Furosemide 40mg tab ORAL SCH ×2 (08:48→21:35)
[2016-08-07] MEDS: oxyCONTIN 10mg tab ORAL SCH ×2 (08:50→23:20)
--- NOTE | 2016-08-07 09:17 | Pulmonology Progress Note ---
Assessment/Plan Assessment/Plan IMPRESSION: 1. Right rib lesion/lung mass. 2. Cirrhosis with ascites. 3. Metastatic HCC DISCUSSION: Will follow prn Dilaudid q 3 hrly Oncology following Subjective Interval Events: No new reported respiratory events Constitutional: Reports: no symptoms HEENT: Repors: no symptoms Respiratory: Reports: no symptoms Cardiovascular: Reports: no symptoms Gastrointestinal/Abdominal: Reports: no symptoms Genitourinary: Reports: no symptoms Allergies: Coded Allergies: PENICILLINS (Verified Allergy, Intermediate, 12/06/15) Objective Last 24 Hour Vital Signs Date Time Temp Pulse Resp B/P Pulse Ox O2 Delivery O2 Flow Rate FiO2 08/07/16 08:50 114/55 08/07/16 08:00 96.8 97 18 114/55 95 Room Air 08/07/16 04:29 97.0 100 20 113/69 96 Nasal Cannula 2.0 08/07/16 04:00 99 08/07/16 02:41 98.0 08/07/16 00:22 98.0 108 20 124/63 95 Room Air 08/07/16 00:00 103 08/06/16 20:30 98.8 115 20 136/67 97 Room Air 08/06/16 20:00 116 08/06/16 16:00 111 08/06/16 16:00 96.8 110 17 148/77 95 Room Air 08/06/16 12:00 98.1 107 17 147/78 94 Room Air 08/06/16 12:00 102 Intake and Output 08/06/16 08/07/16 19:00 07:00 Intake Total 230 ml 230 ml Output Total 450 ml 450 ml Balance -220 ml -220 ml Intake Oral 230 ml 230 ml Output Urine Total 450 ml 450 ml # Voids 2 5 General Appearance: no acute distress Respiratory/Chest: chest wall non-tender Cardiovascular: normal peripheral pulses Abdomen: normal bowel sounds Current Medications Medications (Trade) Dose Ordered Sig/Cammy Route PRN Reason Start Time Stop Time Status Last Admin Dose Admin Atorvastatin Calcium (Lipitor) 10 mg BEDTIME ORAL 08/02/16 21:00 09/01/16 20:59 08/06/16 21:01 Dextrose (Dextrose 50%) STAT PRN IV Hypoglycemia 08/02/16 19:30 09/01/16 19:29 Enalapril Maleate (Vasotec) 10 mg DAILY ORAL 08/02/16 12:00 09/01/16 11:59 08/07/16 08:50 Furosemide (Lasix) 40 mg EVERY 12 HOURS ORAL 08/03/16 22:15 09/02/16 22:14 08/07/16 08:48 Gemfibrozil (Lopid) 600 mg BID ORAL 08/02/16 18:00 09/01/16 17:59 08/07/16 08:48 Hydromorphone HCl (Dilaudid) 2 mg Q3H PRN SUBQ For Pain 08/05/16 15:45 08/12/16 15:44 08/06/16 22:45 Insulin Detemir (Levemir) 20 units BEDTIME SUBQ 08/02/16 21:00 09/01/16 20:59 08/06/16 21:13 Metformin HCl (Glucophage) 1,000 mg BID ORAL 08/02/16 13:00 09/01/16 12:59 08/07/16 08:48 Mirtazapine (Remeron) 7.5 mg BEDTIME ORAL 08/03/16 21:00 09/02/16 20:59 08/06/16 21:00 Ondansetron HCl (Zofran ODT) 4 mg EVERY 4 HOURS PRN SL Nausea & Vomiting 08/03/16 22:15 09/02/16 22:14 08/04/16 17:27 Oxycodone HCl (OxyCONTIN) 10 mg Q12HR ORAL 08/05/16 21:00 08/12/16 20:59 08/07/16 08:50 Pantoprazole (Protonix) 40 mg DAILY ORAL 08/02/16 12:00 09/01/16 11:59 08/07/16 08:50 Dante Dasilva MD Aug 07, 2016 09:17
[2016-08-07] MEDS: HYDROmorphone 1mg/ml Carpuject SUBQ PRN ×4 (11:30→21:43)
[2016-08-07 12:00] VITALS: BP 145/71
--- NOTE | 2016-08-07 12:11 | General Progress Note ---
Assessment/Plan Assessment/Plan Assessment/Recs # Metastatic hepatocellular carcinoma with bony metastasis, based on IHC immunohistochemistry staining, with a hx of hepatitis C, Asparginase++ as is Hepar1++, will need to stain also for AFP ---> have had a extensive discussion with patient and (Michelle) and daughter (Bridger) a RN at [facility], at this time, family is very saddened ---> may benefit from sorafenib, discuss with patient since diagnosis now confirmed, this is a PO medication ---> will need outpatient followup and will need to improve in terms of ambulatory status prior to TKI (sorafenib) a PO medication ---> another option will be hospice, family considering if they want treatment versus alternative route # Cirrhosis. Ascites. Sonographic Gonzalez's sign is positive. This raises the possibility of acute cholecystitis. . # Hx of Hep C s/p paracentesis yielding 1L of fluid, fu labs r/o SBP # FTT - secondary to malignancy # Anemia of chronic disease # Coagulopathy 2/2 cirrhosis # JERARDO # Hyperkalameia # DM Subjective Date patient seen: Aug 06, 2016 Constitutional: Reports: no symptoms HEENT: Reports: no symptoms Cardiovascular: Reports: no symptoms Respiratory: Reports: no symptoms Gastrointestinal/Abdominal: Reports: nausea Genitourinary: Reports: no symptoms Neurologic/Psychiatric: Reports: no symptoms Endocrine: Reports: unexplained weight gain Hematologic/Lymphatic: Reports: anemia Allergies: Coded Allergies: PENICILLINS (Verified Allergy, Intermediate, 12/06/15) Subjective stable, no fevers or chills noted, patient is sleeping this am Objective Last 24 Hour Vital Signs Date Time Temp Pulse Resp B/P Pulse Ox O2 Delivery O2 Flow Rate FiO2 08/07/16 11:59 98 08/07/16 08:50 114/55 08/07/16 08:00 102 08/07/16 08:00 96.8 97 18 114/55 95 Room Air 08/07/16 04:29 97.0 100 20 113/69 96 Nasal Cannula 2.0 08/07/16 04:00 99 08/07/16 02:41 98.0 08/07/16 00:22 98.0 108 20 124/63 95 Room Air 08/07/16 00:00 103 08/06/16 20:30 98.8 115 20 136/67 97 Room Air 08/06/16 20:00 116 6/24/17 16:00 111 08/06/16 16:00 96.8 110 17 148/77 95 Room Air Intake and Output 08/06/16 08/07/16 19:00 07:00 Intake Total 230 ml 230 ml Output Total 450 ml 450 ml Balance -220 ml -220 ml Intake Oral 230 ml 230 ml Output Urine Total 450 ml 450 ml # Voids 2 5 Height (Feet): 5 Height (Inches): 10.00 Weight (Pounds): 170 General Appearance: alert EENT: normal ENT inspection Neck: supple Cardiovascular: normal rate Respiratory/Chest: lungs clear Abdomen: normal bowel sounds Extremities: non-tender Edema: 1+ Leg (L), 1+ Leg (R) Edema: mild edema Neurologic: alert Skin: normal pigmentation Sheldon Horowitz Aug 07, 2016 12:11
--- NOTE | 2016-08-07 14:16 | Cardiac Electrophysiology PN ---
Assessment/Plan Status Narrative visualized. Left ventricular ejection fraction estimated to be 55 %. Study quality precludes accurate assessment of regional wall motion. Mild left ventricular hypertrophy by 2-D. No evidence of pericardial effusion. Mild left atrial enlargement. Right cardiac chamber sizes are within normal limits. Focal aortic valve sclerosis with adequate cusp excursion. Thickened mitral valve leaflets with normal excursion. Mitral annulus and aortic root calcification. Pulmonic valve not well visualized. Normal tricuspid valve structure. IVC at normal size with physiologic collapse. Assessment/Plan 1. Hypertension. On Vasotec 10 mg daily and Lasix 40 po bid. Echo EF 55%.. 2. Hyperlipidemia, on Lipitor and Lopid. 3. Diabetes, on metformin. 4. Hepatitis C. 5. Cirrhosis of the liver and ascites, status post paracentesis. 6. Hepatorenal syndrome with BUN of 63 and creatinine 1.9.Follow up Dr Herbert 7. Mild elevation of liver function tests. 8. Metastatic hepatocellular carcinoma with bone, lung metastases. S/P CT- guided biopsy of rib. Dr Burgos following. 9. DC to [facility] Monday KENIA RN Subjective Subjective No arrhythmias on tele. DC to [facility] postponed to Monday.Comfortable in NAD. at bedside. Objective Last 24 Hour Vital Signs Date Time Temp Pulse Resp B/P Pulse Ox O2 Delivery O2 Flow Rate FiO2 08/07/16 12:00 96.8 107 19 145/71 98 Room Air 08/07/16 11:59 98 08/07/16 08:50 114/55 08/07/16 08:00 102 08/07/16 08:00 96.8 97 18 114/55 95 Room Air 08/07/16 04:29 97.0 100 20 113/69 96 Nasal Cannula 2.0 08/07/16 04:00 99 08/07/16 02:41 98.0 08/07/16 00:22 98.0 108 20 124/63 95 Room Air 08/07/16 00:00 103 08/06/16 20:30 98.8 115 20 136/67 97 Room Air 08/06/16 20:00 116 08/06/16 16:00 111 08/06/16 16:00 96.8 110 17 148/77 95 Room Air Intake and Output 08/06/16 08/07/16 19:00 07:00 Intake Total 230 ml 230 ml Output Total 450 ml 450 ml Balance -220 ml -220 ml Intake Oral 230 ml 230 ml Output Urine Total 450 ml 450 ml # Voids 2 5 Objective HEAD AND NECK: Shows no JVD. LUNGS: Decreased breath sounds. CARDIOVASCULAR: Shows regular S1 and S2. Mildly tachycardic. ABDOMEN: Distended EXTREMITIES: 2+ bilateral pitting edema. NADER BACK Aug 07, 2016 14:16
[2016-08-07 16:00] VITALS: BP 116/59
[2016-08-07 20:00] VITALS: BP 124/68
[2016-08-07] MEDS: Levemir Flexpen SUBQ SCH (21:51)
[2016-08-08] VITALS (9 sets, daily range): BP systolic 93–143; BP diastolic 49–76
[2016-08-08] MEDS: HYDROmorphone 1mg/ml Carpuject SUBQ PRN ×4 (06:26→22:35)
[2016-08-08] MEDS ORDERED: Digoxin 0.5mg/2ml Inj IVP ONE (07:45)
[2016-08-08] MEDS ORDERED: Diltiazem 25mg/5ml IV ONE (07:45)
[2016-08-08] MEDS: Furosemide 40mg tab ORAL SCH ×2 (09:00→21:21)
[2016-08-08] MEDS: metFORMIN 500mg tab ORAL SCH ×2 (09:51→18:00)
[2016-08-08] MEDS: oxyCONTIN 10mg tab ORAL SCH ×2 (10:05→21:22)
--- NOTE | 2016-08-08 10:07 | Nephrology Progress Note ---
Assessment/Plan Problem List: (1) Anemia (2) Mass of right lung (3) Acute hyperkalemia Assessment: corrected. (4) Anemia in chronic illness (5) Failure to thrive in adult (6) Ascites (7) Cirrhosis (8) Hepatitis C (9) DM (diabetes mellitus) Plan pulm following. cardio following. monitor labs. d/c plan to SNF Subjective Subjective late entry for 08/06/16 - no acute events. Objective Objective Last 24 Hour Vital Signs Date Time Temp Pulse Resp B/P Pulse Ox O2 Delivery O2 Flow Rate FiO2 08/08/16 08:04 97.3 133 20 117/59 95 Room Air 08/08/16 07:45 133 117/59 08/08/16 06:56 97.7 08/08/16 04:00 97.7 98 20 125/60 97 Room Air 08/08/16 04:00 106 08/08/16 00:00 97 08/08/16 00:00 97.4 104 19 124/62 94 Room Air 08/07/16 20:00 104 08/07/16 20:00 96.8 105 20 124/68 95 Room Air 08/07/16 16:00 98 18 116/59 96 Room Air 08/07/16 16:00 107 08/07/16 12:00 96.8 107 19 145/71 98 Room Air 08/07/16 11:59 98 Intake and Output 08/07/16 08/08/16 19:00 07:00 Intake Total 250 ml Balance 250 ml Intake Oral 250 ml # Voids 4 1 # Bowel Movements 2 Height (Feet): 5 Height (Inches): 10.00 Weight (Pounds): 170 General Appearance: no apparent distress Cardiovascular: normal rate, regular rhythm Respiratory/Chest: lungs clear Abdomen: non tender, soft EV NG Aug 08, 2016 10:07
--- NOTE | 2016-08-08 10:09 | Nephrology Progress Note ---
Assessment/Plan Problem List: (1) Anemia (2) Mass of right lung (3) Acute hyperkalemia Assessment: corrected. (4) Anemia in chronic illness (5) Failure to thrive in adult (6) Ascites (7) Cirrhosis (8) Hepatitis C (9) DM (diabetes mellitus) (10) Metastatic hepatocellular carcinoma to bone Assessment: and lungs Plan pulm following. cardio following. hemeonc following. monitor labs. d/c plan to SNF Subjective Subjective late entry for 08/07/16 - comfortable. Objective Objective Last 24 Hour Vital Signs Date Time Temp Pulse Resp B/P Pulse Ox O2 Delivery O2 Flow Rate FiO2 08/08/16 08:04 97.3 133 20 117/59 95 Room Air 08/08/16 07:45 133 117/59 08/08/16 06:56 97.7 08/08/16 04:00 97.7 98 20 125/60 97 Room Air 08/08/16 04:00 106 08/08/16 00:00 97 08/08/16 00:00 97.4 104 19 124/62 94 Room Air 08/07/16 20:00 104 08/07/16 20:00 96.8 105 20 124/68 95 Room Air 08/07/16 16:00 98 18 116/59 96 Room Air 08/07/16 16:00 107 08/07/16 12:00 96.8 107 19 145/71 98 Room Air 08/07/16 11:59 98 Intake and Output 08/07/16 08/08/16 19:00 07:00 Intake Total 250 ml Balance 250 ml Intake Oral 250 ml # Voids 4 1 # Bowel Movements 2 Height (Feet): 5 Height (Inches): 10.00 Weight (Pounds): 170 General Appearance: no apparent distress Cardiovascular: normal rate, regular rhythm Respiratory/Chest: lungs clear Abdomen: non tender, soft EV NG Aug 08, 2016 10:09
--- NOTE | 2016-08-08 11:16 | Pulmonology Progress Note ---
Assessment/Plan Assessment/Plan IMPRESSION: 1. Right rib lesion/lung mass. 2. Cirrhosis with ascites. 3. Metastatic HCC DISCUSSION: Will follow prn Dilaudid q 3 hrly Oncology following Subjective Interval Events: Comfortable Constitutional: Reports: no symptoms HEENT: Repors: no symptoms Respiratory: Reports: no symptoms Cardiovascular: Reports: no symptoms Allergies: Coded Allergies: PENICILLINS (Verified Allergy, Intermediate, 12/06/15) Objective Last 24 Hour Vital Signs Date Time Temp Pulse Resp B/P Pulse Ox O2 Delivery O2 Flow Rate FiO2 08/08/16 08:04 97.3 133 20 117/59 95 Room Air 08/08/16 07:45 133 117/59 08/08/16 06:56 97.7 08/08/16 04:00 97.7 98 20 125/60 97 Room Air 08/08/16 04:00 106 08/08/16 00:00 97 08/08/16 00:00 97.4 104 19 124/62 94 Room Air 08/07/16 20:00 104 08/07/16 20:00 96.8 105 20 124/68 95 Room Air 08/07/16 16:00 98 18 116/59 96 Room Air 08/07/16 16:00 107 08/07/16 12:00 96.8 107 19 145/71 98 Room Air 08/07/16 11:59 98 Intake and Output 08/07/16 08/08/16 19:00 07:00 Intake Total 250 ml Balance 250 ml Intake Oral 250 ml # Voids 4 1 # Bowel Movements 2 General Appearance: no acute distress HEENT: normocephalic Respiratory/Chest: chest wall non-tender Cardiovascular: normal peripheral pulses Abdomen: normal bowel sounds Current Medications Medications (Trade) Dose Ordered Sig/Cammy Route PRN Reason Start Time Stop Time Status Last Admin Dose Admin Atorvastatin Calcium (Lipitor) 10 mg BEDTIME ORAL 08/02/16 21:00 09/01/16 20:59 08/07/16 21:35 Dextrose (Dextrose 50%) STAT PRN IV Hypoglycemia 08/02/16 19:30 09/01/16 19:29 Enalapril Maleate (Vasotec) 10 mg DAILY ORAL 08/02/16 12:00 09/01/16 11:59 08/07/16 08:50 Furosemide (Lasix) 40 mg EVERY 12 HOURS ORAL 08/03/16 22:15 09/02/16 22:14 08/07/16 21:35 Gemfibrozil (Lopid) 600 mg BID ORAL 08/02/16 18:00 09/01/16 17:59 08/08/16 09:00 Hydromorphone HCl (Dilaudid) 2 mg Q3H PRN SUBQ For Pain 08/05/16 15:45 08/12/16 15:44 08/08/16 06:26 Insulin Detemir (Levemir) 20 units BEDTIME SUBQ 08/02/16 21:00 09/01/16 20:59 08/07/16 21:51 Metformin HCl (Glucophage) 1,000 mg BID ORAL 08/02/16 13:00 09/01/16 12:59 08/08/16 09:51 Mirtazapine (Remeron) 7.5 mg BEDTIME ORAL 08/03/16 21:00 09/02/16 20:59 08/07/16 21:35 Ondansetron HCl (Zofran ODT) 4 mg EVERY 4 HOURS PRN SL Nausea & Vomiting 08/03/16 22:15 09/02/16 22:14 08/04/16 17:27 Oxycodone HCl (OxyCONTIN) 10 mg Q12HR ORAL 08/05/16 21:00 08/12/16 20:59 08/08/16 10:05 Pantoprazole (Protonix) 40 mg DAILY ORAL 08/02/16 12:00 09/01/16 11:59 08/08/16 09:51 Dante Dasilva MD Aug 08, 2016 11:16
--- NOTE | 2016-08-08 13:40 | Nephrology Progress Note ---
Assessment/Plan Problem List: (1) JERARDO (acute kidney injury) (2) Acute hyperkalemia (3) Encephalopathy acute (4) Ascites (5) Cirrhosis (6) Hepatitis C (7) DM (diabetes mellitus) (8) Mass of right lung (9) Cholecystitis (10) Lung mass Plan Monitor HR - Cardio following Monitor Renal function - avoid nephrotoxic agents Monitor lytes, correct prn Pain management Pulmo following Oncology following BP & BS control AM labs DC plan - SNF placement Subjective Constitutional: Denies: chills, diaphoresis, fever, malaise, no symptoms, other , weakness HEENT: Denies: blurred vision, double vision, ear discharge, ear pain, eye pain , mouth pain, mouth swelling, no symptoms, nose congestion, nose pain, other, tearing, throat pain, throat swelling Genitourinary: Denies: burning, discharge, flank pain, frequency, hematuria, incontinence, no symptoms, other, pain, urgency Neurologic/Psychiatric: Denies: anxiety, depressed, emotional problems, headache, no symptoms, numbness, other, paresthesia, pre-existing deficit, seizure, tingling, tremors, weakness Subjective Asleep but easily aroused, in no apparent distress Objective Objective Last 24 Hour Vital Signs Date Time Temp Pulse Resp B/P Pulse Ox O2 Delivery O2 Flow Rate FiO2 08/08/16 12:02 97.0 143 20 123/62 96 Room Air 08/08/16 08:04 97.3 133 20 117/59 95 Room Air 08/08/16 08:00 165 08/08/16 07:45 133 117/59 08/08/16 06:56 97.7 08/08/16 04:00 97.7 98 20 125/60 97 Room Air 08/08/16 04:00 106 08/08/16 00:00 97 08/08/16 00:00 97.4 104 19 124/62 94 Room Air 08/07/16 20:00 104 08/07/16 20:00 96.8 105 20 124/68 95 Room Air 08/07/16 16:00 98 18 116/59 96 Room Air 08/07/16 16:00 107 Intake and Output 08/07/16 08/08/16 19:00 07:00 Intake Total 250 ml Balance 250 ml Intake Oral 250 ml # Voids 4 1 # Bowel Movements 2 Height (Feet): 5 Height (Inches): 10.00 Weight (Pounds): 170 General Appearance: no apparent distress, alert EENT: PERRL/EOMI, normal ENT inspection Neck: normal alignment Cardiovascular: normal rate, no JVD Respiratory/Chest: decreased breath sounds Abdomen: distended Extremities: non-tender, normal inspection, no calf tenderness Neurologic: alert, oriented x 3, responsive, normal mood/affect Paige Bhardwaj N.P. Aug 08, 2016 13:40
--- NOTE | 2016-08-08 17:46 | Consultation ---
History of Present Illness General Date patient seen: Aug 09, 2016 Chief Complaint: Dyspnea/Respdistress Present Illness Allergies: Coded Allergies: PENICILLINS (Verified Allergy, Intermediate, 12/06/15) Medication History Scheduled Enalapril Maleate* (Enalapril Maleate*), 10 MG ORAL DAILY, (Reported) Gemfibrozil (Gemfibrozil*), 600 MG ORAL TWICE A DAY, (Reported) Hydrocodone Bit/Acetaminophen 10-325* (Hydrocodon-Acetaminophn 10-325*), 1 TAB ORAL Q12HR, (Reported) Insulin Glargine (Lantus), 0 SUBQ BEDTIME, (Reported) Lovastatin (Lovastatin), 20 MG ORAL BEDTIME, (Reported) Metformin Hcl* (Metformin Hcl*), 1,000 MG ORAL TWICE A DAY, (Reported) Omeprazole (Omeprazole), 20 MG ORAL DAILY, (Reported) Scheduled PRN Acetaminophen With Codeine (T#3) (Tylenol #3 Tab*), 1 TAB ORAL BID PRN for For Pain, (Reported) Patient History Healthcare decision maker Resuscitation status Full Code Advanced Directive on File No Physical Exam Last 24 Hour Vital Signs Date Time Temp Pulse Resp B/P Pulse Ox O2 Delivery O2 Flow Rate FiO2 08/08/16 16:07 97.0 129 20 93/53 99 Nasal Cannula 2.0 08/08/16 15:48 97.0 08/08/16 12:02 97.0 143 20 123/62 96 Room Air 08/08/16 12:00 136 08/08/16 08:04 97.3 133 20 117/59 95 Room Air 08/08/16 08:00 165 08/08/16 07:45 133 117/59 08/08/16 04:00 97.7 98 20 125/60 97 Room Air 08/08/16 04:00 106 08/08/16 00:00 97 08/08/16 00:00 97.4 104 19 124/62 94 Room Air 08/07/16 20:00 104 08/07/16 20:00 96.8 105 20 124/68 95 Room Air Intake and Output 08/07/16 08/08/16 19:00 07:00 Intake Total 250 ml Balance 250 ml Intake Oral 250 ml # Voids 4 1 # Bowel Movements 2 Height (Feet): 5 Height (Inches): 10.00 Weight (Pounds): 170 Medications Current Medications Medications (Trade) Dose Ordered Sig/Cammy Route PRN Reason Start Time Stop Time Status Last Admin Dose Admin Atorvastatin Calcium (Lipitor) 10 mg BEDTIME ORAL 08/02/16 21:00 09/01/16 20:59 08/07/16 21:35 Dextrose (Dextrose 50%) STAT PRN IV Hypoglycemia 08/02/16 19:30 09/01/16 19:29 Enalapril Maleate (Vasotec) 10 mg DAILY ORAL 08/02/16 12:00 09/01/16 11:59 08/07/16 08:50 Furosemide (Lasix) 40 mg EVERY 12 HOURS ORAL 08/03/16 22:15 09/02/16 22:14 08/07/16 21:35 Gemfibrozil (Lopid) 600 mg BID ORAL 08/02/16 18:00 09/01/16 17:59 08/08/16 09:00 Hydromorphone HCl (Dilaudid) 2 mg Q3H PRN SUBQ For Pain 08/05/16 15:45 08/12/16 15:44 08/08/16 15:18 Insulin Detemir (Levemir) 20 units BEDTIME SUBQ 08/02/16 21:00 09/01/16 20:59 08/07/16 21:51 Metformin HCl (Glucophage) 1,000 mg BID ORAL 08/02/16 13:00 09/01/16 12:59 08/08/16 09:51 Mirtazapine (Remeron) 7.5 mg BEDTIME ORAL 08/03/16 21:00 09/02/16 20:59 08/07/16 21:35 Ondansetron HCl (Zofran ODT) 4 mg EVERY 4 HOURS PRN SL Nausea & Vomiting 08/03/16 22:15 09/02/16 22:14 08/04/16 17:27 Oxycodone HCl (OxyCONTIN) 10 mg Q12HR ORAL 08/05/16 21:00 08/12/16 20:59 08/08/16 10:05 Pantoprazole (Protonix) 40 mg DAILY ORAL 08/02/16 12:00 09/01/16 11:59 08/08/16 09:51 Assessment/Plan Assessment/Plan (1) Intractable Abdominal pain (2) Metastatic hepatocellular carcinoma (3) Liver Cirrhosis (4) Hep C Seen dictated. IFRAH ADAME. Aug 08, 2016 17:46
--- NOTE | 2016-08-08 18:32 | Cardiac Electrophysiology PN ---
Assessment/Plan Status Narrative visualized. Left ventricular ejection fraction estimated to be 55 %. Study quality precludes accurate assessment of regional wall motion. Mild left ventricular hypertrophy by 2-D. No evidence of pericardial effusion. Mild left atrial enlargement. Right cardiac chamber sizes are within normal limits. Focal aortic valve sclerosis with adequate cusp excursion. Thickened mitral valve leaflets with normal excursion. Mitral annulus and aortic root calcification. Pulmonic valve not well visualized. Normal tricuspid valve structure. IVC at normal size with physiologic collapse. Assessment/Plan 1. Hypertension. On Vasotec 10 mg daily and Lasix 40 po bid. Echo EF 55%. Change Vasotec to Cardizem 60 tid.. 2. Atrial fib with RVR. Converted to SR after Dig and Cardizem. Check Dig level in [place]. 3. Diabetes, on metformin. 4. Hepatitis C. 5. Cirrhosis of the liver and ascites, status post paracentesis. 6. Hepatorenal syndrome with BUN of 63 and creatinine 1.9.Follow up Dr Herbert 7. Mild elevation of liver function tests. 8. Metastatic hepatocellular carcinoma with bone, lung metastases. S/P CT- guided biopsy of rib. Dr Burgos following. 9.Hyperlipidemia, on Lipitor and Lopid. DW RN Subjective Subjective Developed atrial fib with RVR up to 163. I ordered Dig 0.5 and Cardizem 20 iv. HR 80-90. Converted to SR. Comfortable in NAD. at bedside. Objective Last 24 Hour Vital Signs Date Time Temp Pulse Resp B/P Pulse Ox O2 Delivery O2 Flow Rate FiO2 08/08/16 16:07 97.0 129 20 93/53 99 Nasal Cannula 2.0 08/08/16 15:48 97.0 08/08/16 12:02 97.0 143 20 123/62 96 Room Air 08/08/16 12:00 136 08/08/16 08:04 97.3 133 20 117/59 95 Room Air 08/08/16 08:00 165 08/08/16 07:45 133 117/59 08/08/16 04:00 97.7 98 20 125/60 97 Room Air 08/08/16 04:00 106 08/08/16 00:00 97 08/08/16 00:00 97.4 104 19 124/62 94 Room Air 08/07/16 20:00 104 08/07/16 20:00 96.8 105 20 124/68 95 Room Air Intake and Output 08/07/16 08/08/16 19:00 07:00 Intake Total 250 ml Balance 250 ml Intake Oral 250 ml # Voids 4 1 # Bowel Movements 2 Objective HEAD AND NECK: Shows no JVD. LUNGS: Decreased breath sounds. CARDIOVASCULAR: Regular S1 and S2. Mildly tachycardic. ABDOMEN: Distended EXTREMITIES: 2+ bilateral pitting edema. NADER BACK Aug 08, 2016 18:32
[2016-08-08] MEDS: Levemir Flexpen SUBQ SCH (21:24)
--- NOTE | 2016-08-08 22:32 | General Progress Note ---
Assessment/Plan Assessment/Plan Assessment/Recs # Metastatic hepatocellular carcinoma with bony metastasis, based on IHC immunohistochemistry staining, with a hx of hepatitis C, Asparginase++ as is Hepar1++, will need to stain also for AFP ---> have had a extensive discussion with patient and (Michelle) and daughter (Bridger) a RN at [facility], at this time, family is very saddened ---> may benefit from sorafenib, discuss with patient since diagnosis now confirmed, this is a PO medication ---> will need outpatient followup and will need to improve in terms of ambulatory status prior to TKI (sorafenib) a PO medication ---> another option will be hospice, family considering if they want treatment versus alternative route ---> pt currently with poor performance status # Cirrhosis. Ascites. Sonographic Gonzalez's sign is positive. This raises the possibility of acute cholecystitis. . # Hx of Hep C s/p paracentesis yielding 1L of fluid, fu labs r/o SBP # FTT - secondary to malignancy # Anemia of chronic disease # Coagulopathy 2/2 cirrhosis # JERARDO # Hyperkalameia # DM Subjective Constitutional: Reports: no symptoms HEENT: Reports: no symptoms Cardiovascular: Reports: irregular heart rate Respiratory: Reports: no symptoms Gastrointestinal/Abdominal: Reports: no symptoms Genitourinary: Reports: no symptoms Neurologic/Psychiatric: Reports: no symptoms Endocrine: Reports: no symptoms Hematologic/Lymphatic: Reports: anemia Allergies: Coded Allergies: PENICILLINS (Verified Allergy, Intermediate, 12/06/15) Subjective pt had afib today, no fevers/chills Objective Last 24 Hour Vital Signs Date Time Temp Pulse Resp B/P Pulse Ox O2 Delivery O2 Flow Rate FiO2 08/08/16 21:44 92 118/60 08/08/16 20:00 96.4 90 19 118/49 96 Room Air 08/08/16 19:49 97.0 08/08/16 19:15 105/50 08/08/16 16:07 97.0 129 20 93/53 99 Nasal Cannula 2.0 08/08/16 16:00 97 08/08/16 12:02 97.0 143 20 123/62 96 Room Air 08/08/16 12:00 136 08/08/16 08:04 97.3 133 20 117/59 95 Room Air 08/08/16 08:00 165 08/08/16 07:45 133 117/59 08/08/16 04:00 97.7 98 20 125/60 97 Room Air 08/08/16 04:00 106 08/08/16 00:00 97 08/08/16 00:00 97.4 104 19 124/62 94 Room Air Intake and Output 08/07/16 08/08/16 19:00 07:00 Intake Total 250 ml Balance 250 ml Intake Oral 250 ml # Voids 4 1 # Bowel Movements 2 Laboratory Tests 08/08/16 19:15: Digoxin Level 1.4 Height (Feet): 5 Height (Inches): 10.00 Weight (Pounds): 170 General Appearance: alert EENT: PERRL/EOMI Neck: non-tender Cardiovascular: normal peripheral pulses Respiratory/Chest: chest wall non-tender Abdomen: normal bowel sounds Pelvis: normal external exam Edema: no edema noted Leg (L), no edema noted Leg (R), no edema noted Pedal (L) , no edema noted Pedal (R) Neurologic: agile scrum coach II-XII grossly normal Skin: warm/dry Shledon Horowitz Aug 08, 2016 22:32
[2016-08-09] VITALS (10 sets, daily range): BP systolic 111–143; BP diastolic 45–67
--- NOTE | 2016-08-09 00:25 | Wound Care Consultation ---
Wound Assessment Wound Assessment : Wound Present on Admission: No New Wound: Yes Status Change of Wound: No Wound Location Body Site Modif: mid Wound Location Body Site: sacral Wound Type: pressure ulcer Tj Test: Does not Tj Pressure Ulcer Stage: II - scattered Wound Thickness: Partial Thickness Wound Length: 4.0 Wound Width: 4.0 Wound Depth: 0.1 Percent of Wound [place]/Red: 100 Wound Drainage Description: Serosanguineous Wound Drainage Amount: Scant Wound Drainage Odor: None/Absent Tissue Surrounding Wound: Erythemic Wound General Appearance: Reddened Wound Comment #1 Scattered stage II pressure ulcer on sacral area Recommendation -Sacral area scattered stage II pressure ulcer Cleanse with saline, pat dry, apply Triad cream, cover with Biatain silicone daily and PRN soiled/dislodged -Keep clean and dry -Turn and reposition -Optimize nutrition -Offload both heels -Low air loss mattress -Heel protector on both heels -Assess and f/u accordingly for any changes LC RIZZO RN Aug 09, 2016 00:24
--- NOTE | 2016-08-09 01:01 | Progress Note ---
DATE: 08/08/2016 SUBJECTIVE: The patient is doing well, in no acute distress. Compliant with medications. Still has poor appetite. He has significant anxiety around his medical condition. MENTAL STATUS EXAMINATION: The patient is alert and oriented x3. Mood is anxious. Affect is constricted. Congruent mood. Thought process is concrete. Thought content, no suicidal or homicidal ideation. ASSESSMENT: Stable. PLAN: The patient will be continued on current medications. Provide the patient with supportive therapy and reality orientation. Zaria Treadwell M.D. DR: MEG JOB#: [id number] CC:
--- NOTE | 2016-08-09 02:01 | Consultation ---
DATE OF CONSULTATION: 08/08/2016 PAIN MANAGEMENT CONSULTATION CONSULTING PHYSICIAN: Jamar Smith M.D. REFERRING PHYSICIAN: Bert Herbert M.D. PHYSICIAN STUDENT SERVICES DIRECTOR: Kaye Rogers CHIEF COMPLAINT: Abdominal pain. HISTORY OF PRESENT ILLNESS: This is a 71-year-old male, who is being seen on the telemetry floor of [facility] for initial comprehensive pain management consultation. The patient is not coherent fully, slightly lethargic, and sleepy due to hepatic issues. The patient's family members are at bedside. History is mostly received from the patient's family member and chart. The patient has been having abdominal pain, which has been severe for the past six months. It is a constant acute pain, rating at 10/10, describing as sharp, shooting, and stabbing pain, increasing with movement, and nothing has been helping to relieve his pain except for OxyContin 10 mg tablet twice a day and Dilaudid 2 mg subcu every three hours as needed for severe pain. The patient was found to have a metastatic hepatocellular carcinoma with liver cirrhosis and hepatitis C. He has been seeing Dr. Garvin as an outpatient now and Dr. Horowitz is on the case here in the hospital. The patient's blood pressure has been running low due to anemia. Due to this, we were consulted, so that the patient would have adequate pain control while in the hospital. PAST MEDICAL HISTORY: Liver cirrhosis, hypertension, diabetes mellitus, and hepatitis C. PAST SURGICAL HISTORY: Paracentesis. MEDICATIONS: Enalapril, Gemfibrozil, [place], Lantus, Losartan, metformin, and omeprazole. ALLERGIES: Penicillin. SOCIAL HISTORY: Denies smoking tobacco, drinking alcohol, or IV drug abuse. REVIEW OF SYSTEMS: He is complaining of intractable abdominal pain. PHYSICAL EXAMINATION: GENERAL: Alert. VITAL SIGNS: Blood pressure is 93/53, heart rate is 139, oxygen saturation is 99%, respiratory rate is 20, and temperature is 97 degrees Fahrenheit. Height 5 feet 10 inches and weight is 170 pounds. HEENT: PERRLA. Sclerae icteric. LUNGS: Decreased breath sounds bilaterally. HEART: S1 and S2. Regular. ABDOMEN: Distended with tenderness to palpation. EXTREMITIES: No cyanosis. No clubbing. No edema noted. NEUROLOGIC: Unable to obtain due to the patient's current condition. ASSESSMENT AND PLAN: This is a 71-year-old male with intractable abdominal pain and metastatic hepatocellular carcinoma, liver cirrhosis, and hepatitis C. The patient will be continued on the OxyContin 10 mg tablets b.i.d. with the Dilaudid 2 mg subcu every three hours as needed for severe pain. However, parameters will be set to hold opioids for oversedation or systolic blood pressure below 90 or diastolic blood pressure below 60. This was discussed with the family member and nurse. The patient was discussed with Dr. Smith and Dr. Smith concurred. We will follow the patient. Thank you very much for the courtesy of this consultation. Jamar Smith M.D. DIANE Rogers DR: DARIEL JOB#: [id number] CC:
[2016-08-09] MEDS: HYDROmorphone 1mg/ml Carpuject SUBQ PRN (06:40)
--- NOTE | 2016-08-09 08:48 | General Progress Note ---
Assessment/Plan Assessment/Plan (1) Intractable Abdominal pain (2) Metastatic hepatocellular carcinoma (3) Liver Cirrhosis (4) Hep C The patient will be continued on the OxyContin, Dilaudid parameters to be continued. The patient was discussed with Dr. Smith and Dr. Smith concurred. Subjective Date patient seen: Aug 09, 2016 Time patient seen: 08:15 - am Allergies: Coded Allergies: PENICILLINS (Verified Allergy, Intermediate, 12/06/15) Subjective REVIEW OF SYSTEMS: He is complaining of intractable abdominal pain. SUBJECTIVE: Patient is laying in bed no signs of pain receiving the Oxycontin and Dilaudid Objective Last 24 Hour Vital Signs Date Time Temp Pulse Resp B/P Pulse Ox O2 Delivery O2 Flow Rate FiO2 08/09/16 08:33 97.0 85 20 111/51 100 Nasal Cannula 4.0 08/09/16 06:03 80 120/60 08/09/16 04:00 77 08/09/16 04:00 97.8 87 21 120/57 93 Room Air 08/09/16 00:00 86 08/09/16 00:00 97.0 87 21 118/48 98 Room Air 08/08/16 22:30 85 130/60 08/08/16 21:44 92 118/60 08/08/16 20:00 96.4 90 19 118/49 96 Room Air 08/08/16 20:00 87 08/08/16 19:49 97.0 08/08/16 19:15 105/50 08/08/16 16:07 97.0 129 20 93/53 99 Nasal Cannula 2.0 08/08/16 16:00 97 08/08/16 12:02 97.0 143 20 123/62 96 Room Air 08/08/16 12:00 136 Intake and Output 08/08/16 08/09/16 19:00 07:00 Intake Total 120 ml Output Total 150 ml Balance -150 ml 120 ml Intake Oral 120 ml Output Urine Total 150 ml # Voids 2 # Bowel Movements 1 Laboratory Tests 08/08/16 19:15: Digoxin Level 1.4 Height (Feet): 5 Height (Inches): 10.00 Weight (Pounds): 176 Objective GENERAL: Alert. HEENT: PERRLA. Sclerae icteric. LUNGS: Decreased breath sounds bilaterally. HEART: S1 and S2. Regular. ABDOMEN: Distended with tenderness to palpation. EXTREMITIES: No cyanosis. No clubbing. No edema noted. NEUROLOGIC: Unable to obtain due to the patient's current condition. IFRAH ADAME. Aug 09, 2016 08:48
[2016-08-09] MEDS: oxyCONTIN 10mg tab ORAL SCH ×2 (09:12→20:44)
[2016-08-09] MEDS: Furosemide 40mg tab ORAL SCH ×2 (09:12→20:43)
[2016-08-09] MEDS: metFORMIN 500mg tab ORAL SCH ×2 (09:13→17:46)
--- NOTE | 2016-08-09 13:17 | Pulmonology Progress Note ---
Assessment/Plan Assessment/Plan IMPRESSION: 1. Right rib lesion/lung mass. 2. Cirrhosis with ascites. 3. Metastatic HCC DISCUSSION: Will follow prn Dilaudid q 3 hrly Oncology following Subjective Interval Events: None Constitutional: Reports: no symptoms HEENT: Repors: no symptoms Respiratory: Reports: no symptoms Cardiovascular: Reports: no symptoms Gastrointestinal/Abdominal: Reports: no symptoms Allergies: Coded Allergies: PENICILLINS (Verified Allergy, Intermediate, 12/06/15) Objective Last 24 Hour Vital Signs Date Time Temp Pulse Resp B/P Pulse Ox O2 Delivery O2 Flow Rate FiO2 08/09/16 11:56 97.0 86 20 127/46 97 Nasal Cannula 4.0 08/09/16 10:58 122/47 08/09/16 09:11 143/67 08/09/16 08:33 97.0 85 20 111/51 100 Nasal Cannula 4.0 08/09/16 08:00 97.0 85 18 111/51 100 Nasal Cannula 4.0 08/09/16 08:00 85 08/09/16 06:03 80 120/60 08/09/16 04:00 77 08/09/16 04:00 97.8 87 21 120/57 93 Room Air 08/09/16 00:00 86 08/09/16 00:00 97.0 87 21 118/48 98 Room Air 08/08/16 22:30 85 130/60 08/08/16 21:44 92 118/60 08/08/16 20:00 96.4 90 19 118/49 96 Room Air 08/08/16 20:00 87 08/08/16 19:49 97.0 08/08/16 19:15 105/50 08/08/16 16:07 97.0 129 20 93/53 99 Nasal Cannula 2.0 08/08/16 16:00 97 Intake and Output 08/08/16 08/09/16 19:00 07:00 Intake Total 120 ml Output Total 150 ml Balance -150 ml 120 ml Intake Oral 120 ml Output Urine Total 150 ml # Voids 2 # Bowel Movements 1 General Appearance: no acute distress HEENT: normocephalic Respiratory/Chest: chest wall non-tender, lungs clear Cardiovascular: normal peripheral pulses Abdomen: normal bowel sounds Laboratory Tests 08/08/16 19:15: Digoxin Level 1.4 Current Medications Medications (Trade) Dose Ordered Sig/Cammy Route PRN Reason Start Time Stop Time Status Last Admin Dose Admin Atorvastatin Calcium (Lipitor) 10 mg BEDTIME ORAL 08/02/16 21:00 09/01/16 20:59 08/08/16 21:21 Dextrose (Dextrose 50%) STAT PRN IV Hypoglycemia 08/02/16 19:30 09/01/16 19:29 Diltiazem HCl (Cardizem) 60 mg EVERY 8 HOURS ORAL 08/08/16 22:00 09/07/16 21:59 08/09/16 06:03 Furosemide (Lasix) 40 mg EVERY 12 HOURS ORAL 08/03/16 22:15 09/02/16 22:14 08/09/16 09:12 Gemfibrozil (Lopid) 600 mg BID ORAL 08/02/16 18:00 09/01/16 17:59 08/09/16 09:12 Hydromorphone HCl (Dilaudid) 2 mg Q3H PRN SUBQ For Pain 08/05/16 15:45 08/12/16 15:44 08/09/16 06:40 Insulin Detemir (Levemir) 20 units BEDTIME SUBQ 08/02/16 21:00 09/01/16 20:59 08/08/16 21:24 Metformin HCl (Glucophage) 1,000 mg BID ORAL 08/02/16 13:00 09/01/16 12:59 08/09/16 09:13 Mirtazapine (Remeron) 7.5 mg BEDTIME ORAL 08/03/16 21:00 09/02/16 20:59 08/08/16 21:21 Ondansetron HCl (Zofran ODT) 4 mg EVERY 4 HOURS PRN SL Nausea & Vomiting 08/03/16 22:15 09/02/16 22:14 08/04/16 17:27 Oxycodone HCl (OxyCONTIN) 10 mg Q12HR ORAL 08/05/16 21:00 08/12/16 20:59 08/09/16 09:12 Pantoprazole (Protonix) 40 mg DAILY ORAL 08/02/16 12:00 09/01/16 11:59 08/09/16 09:12 Dante Dasilva MD Aug 09, 2016 13:17
--- NOTE | 2016-08-09 14:10 | General Progress Note ---
Assessment/Plan Assessment/Plan Assessment/Recs # Metastatic hepatocellular carcinoma with bony metastasis, based on IHC immunohistochemistry staining, with a hx of hepatitis C, Asparginase++ as is Hepar1++, will need to stain also for AFP ---> have had a extensive discussion with patient and (Michelle) and daughter (Juliann) a RN at [facility] --> may benefit from sorafenib, discuss with patient since diagnosis now confirmed, this is a PO medication, has referral to Dr. Anuj Maki ---> will need outpatient followup and will need to improve in terms of ambulatory status prior to TKI (sorafenib) a PO medication ---> another option will be hospice, family considering if they want treatment versus alternative route ---> pt currently with poor performance status # Cirrhosis. Ascites. Sonographic Gonzalez's sign is positive. r/o cholecytitis # Hx of Hep C s/p paracentesis yielding 1L of fluid, fu labs r/o SBP # FTT - secondary to malignancy # Anemia of chronic disease # Coagulopathy 2/2 cirrhosis # JERARDO # Hyperkalameia # DM Subjective Constitutional: Reports: no symptoms HEENT: Reports: no symptoms Cardiovascular: Reports: no symptoms Respiratory: Reports: no symptoms Gastrointestinal/Abdominal: Reports: poor appetite Neurologic/Psychiatric: Reports: no symptoms Endocrine: Reports: no symptoms Hematologic/Lymphatic: Reports: anemia Allergies: Coded Allergies: PENICILLINS (Verified Allergy, Intermediate, 12/06/15) Subjective sleepy and confused this am, poor understanding of diagnosis, no fevers/chills Objective Last 24 Hour Vital Signs Date Time Temp Pulse Resp B/P Pulse Ox O2 Delivery O2 Flow Rate FiO2 08/09/16 13:39 86 122/54 08/09/16 13:17 122/54 08/09/16 11:56 97.0 86 20 127/46 97 Nasal Cannula 4.0 08/09/16 10:58 122/47 08/09/16 09:11 143/67 08/09/16 08:33 97.0 85 20 111/51 100 Nasal Cannula 4.0 08/09/16 08:00 97.0 85 18 111/51 100 Nasal Cannula 4.0 08/09/16 08:00 85 08/09/16 06:03 80 120/60 08/09/16 04:00 77 08/09/16 04:00 97.8 87 21 120/57 93 Room Air 08/09/16 00:00 86 08/09/16 00:00 97.0 87 21 118/48 98 Room Air 08/08/16 22:30 85 130/60 08/08/16 21:44 92 118/60 08/08/16 20:00 96.4 90 19 118/49 96 Room Air 08/08/16 20:00 87 08/08/16 19:49 97.0 08/08/16 19:15 105/50 08/08/16 16:07 97.0 129 20 93/53 99 Nasal Cannula 2.0 08/08/16 16:00 97 Intake and Output 08/08/16 08/09/16 19:00 07:00 Intake Total 120 ml Output Total 150 ml Balance -150 ml 120 ml Intake Oral 120 ml Output Urine Total 150 ml # Voids 2 # Bowel Movements 1 Laboratory Tests 08/08/16 19:15: Digoxin Level 1.4 Height (Feet): 5 Height (Inches): 10.00 Weight (Pounds): 176 General Appearance: no apparent distress EENT: normal ENT inspection Neck: abnormal alignment Cardiovascular: regular rhythm Respiratory/Chest: normal breath sounds Abdomen: normal bowel sounds Genitourinary/Rectal: heme negative stool Extremities: non-tender Edema: 1+ Leg (L), 1+ Leg (R) Edema: mild edema Neurologic: alert Skin: normal pigmentation Sheldon Horowitz Aug 09, 2016 14:10
--- NOTE | 2016-08-09 14:45 | Diagnostic Imaging Report ---
APPROVED REPORT CPT Code: 97090 Present Symptoms Lower Extremity Edema: Bilateral BILATERAL: Imaging reveals a patent deep venous system bilaterally. There is no evidence of thrombus within the femoral, popliteal or tibial segments. The greater saphenous veins are also within normal limits. Doppler indicates normal spontaneous flow within these segments.
--- NOTE | 2016-08-09 15:28 | General Progress Note ---
Assessment/Plan Status: doing well, stable, progressing Assessment/Plan Cont current meds provided ro/st Subjective Constitutional: Reports: malaise, weakness Neurologic/Psychiatric: Reports: emotional problems Allergies: Coded Allergies: PENICILLINS (Verified Allergy, Intermediate, 12/06/15) Objective Last 24 Hour Vital Signs Date Time Temp Pulse Resp B/P Pulse Ox O2 Delivery O2 Flow Rate FiO2 08/09/16 13:39 86 122/54 08/09/16 13:17 122/54 08/09/16 11:56 97.0 86 20 127/46 97 Nasal Cannula 4.0 08/09/16 10:58 122/47 08/09/16 09:11 143/67 08/09/16 08:33 97.0 85 20 111/51 100 Nasal Cannula 4.0 08/09/16 08:00 97.0 85 18 111/51 100 Nasal Cannula 4.0 08/09/16 08:00 85 08/09/16 06:03 80 120/60 08/09/16 04:00 77 08/09/16 04:00 97.8 87 21 120/57 93 Room Air 08/09/16 00:00 86 08/09/16 00:00 97.0 87 21 118/48 98 Room Air 08/08/16 22:30 85 130/60 08/08/16 21:44 92 118/60 08/08/16 20:00 96.4 90 19 118/49 96 Room Air 08/08/16 20:00 87 08/08/16 19:49 97.0 08/08/16 19:15 105/50 08/08/16 16:07 97.0 129 20 93/53 99 Nasal Cannula 2.0 08/08/16 16:00 97 Intake and Output 08/08/16 08/09/16 19:00 07:00 Intake Total 120 ml Output Total 150 ml Balance -150 ml 120 ml Intake Oral 120 ml Output Urine Total 150 ml # Voids 2 # Bowel Movements 1 Laboratory Tests 08/08/16 19:15: Digoxin Level 1.4 Height (Feet): 5 Height (Inches): 10.00 Weight (Pounds): 176 General Appearance: no apparent distress, alert Neurologic: alert, oriented x 3, responsive, depressed affect Zaria Treadwell M.D. Aug 09, 2016 15:28
--- NOTE | 2016-08-09 18:10 | Cardiac Electrophysiology PN ---
Assessment/Plan Status Narrative visualized. Left ventricular ejection fraction estimated to be 55 %. Study quality precludes accurate assessment of regional wall motion. Mild left ventricular hypertrophy by 2-D. No evidence of pericardial effusion. Mild left atrial enlargement. Right cardiac chamber sizes are within normal limits. Focal aortic valve sclerosis with adequate cusp excursion. Thickened mitral valve leaflets with normal excursion. Mitral annulus and aortic root calcification. Pulmonic valve not well visualized. Normal tricuspid valve structure. IVC at normal size with physiologic collapse. Assessment/Plan 1. Hypertension. On Cardizem 60 tid and Lasix 40 po bid. Echo EF 55%. 2. Atrial fib with RVR. Converted to SR after Dig and Cardizem. Dig level today 1.4. Continue Cardizem. 3. Diabetes, on metformin. 4. Hepatitis C. 5. Cirrhosis of the liver and ascites, status post paracentesis. 6. Hepatorenal syndrome with BUN of 63 and creatinine 1.9.Follow up Dr Herbert 7. Mild elevation of liver function tests. 8. Metastatic hepatocellular carcinoma with bone, lung metastases. S/P CT- guided biopsy of rib. Dr Burgos following. 9.Hyperlipidemia, on Lipitor and Lopid. DW RN Subjective Subjective Remained in SR overnight. Comfortable in NAD. Objective Last 24 Hour Vital Signs Date Time Temp Pulse Resp B/P Pulse Ox O2 Delivery O2 Flow Rate FiO2 08/09/16 16:00 85 08/09/16 15:48 97.0 82 20 112/45 96 Nasal Cannula 4.0 08/09/16 13:39 86 122/54 08/09/16 13:17 122/54 08/09/16 12:00 79 08/09/16 11:56 97.0 86 20 127/46 97 Nasal Cannula 4.0 08/09/16 10:58 122/47 08/09/16 09:11 143/67 08/09/16 08:33 97.0 85 20 111/51 100 Nasal Cannula 4.0 08/09/16 08:00 97.0 85 18 111/51 100 Nasal Cannula 4.0 08/09/16 08:00 85 08/09/16 06:03 80 120/60 08/09/16 04:00 77 08/09/16 04:00 97.8 87 21 120/57 93 Room Air 08/09/16 00:00 86 08/09/16 00:00 97.0 87 21 118/48 98 Room Air 08/08/16 22:30 85 130/60 08/08/16 21:44 92 118/60 08/08/16 20:00 96.4 90 19 118/49 96 Room Air 08/08/16 20:00 87 08/08/16 19:49 97.0 08/08/16 19:15 105/50 Intake and Output 08/08/16 08/09/16 19:00 07:00 Intake Total 120 ml Output Total 150 ml Balance -150 ml 120 ml Intake Oral 120 ml Output Urine Total 150 ml # Voids 2 # Bowel Movements 1 Laboratory Tests Test 08/08/16 19:15 Digoxin Level 1.4 ng/mL (0.5-2.0) Objective HEAD AND NECK: No JVD. LUNGS: Decreased breath sounds. CARDIOVASCULAR: Regular S1 and S2. Mildly tachycardic. ABDOMEN: Distended EXTREMITIES: 2+ bilateral pitting edema. NADER BACK Aug 09, 2016 18:10
[2016-08-09] MEDS: Levemir Flexpen SUBQ SCH (20:45)
--- NOTE | 2016-08-09 22:33 | Nephrology Progress Note ---
Assessment/Plan Problem List: (1) Anemia (2) Mass of right lung (3) Acute hyperkalemia Assessment: corrected. (4) Anemia in chronic illness (5) Failure to thrive in adult (6) Ascites (7) Cirrhosis (8) Hepatitis C (9) DM (diabetes mellitus) (10) Metastatic hepatocellular carcinoma to bone Assessment: and lungs Plan pulm following. cardio following. hemeonc following. d/c plan to SNF. d/c metformin. check labs in am. Subjective Subjective no new c/o. Objective Objective Last 24 Hour Vital Signs Date Time Temp Pulse Resp B/P Pulse Ox O2 Delivery O2 Flow Rate FiO2 08/09/16 22:26 88 120/52 08/09/16 20:00 97.2 88 20 119/47 Room Air 08/09/16 16:00 85 08/09/16 15:48 97.0 82 20 112/45 96 Nasal Cannula 4.0 08/09/16 13:39 86 122/54 08/09/16 13:17 122/54 08/09/16 12:00 79 08/09/16 11:56 97.0 86 20 127/46 97 Nasal Cannula 4.0 08/09/16 10:58 122/47 08/09/16 09:11 143/67 08/09/16 08:33 97.0 85 20 111/51 100 Nasal Cannula 4.0 08/09/16 08:00 97.0 85 18 111/51 100 Nasal Cannula 4.0 08/09/16 08:00 85 08/09/16 06:03 80 120/60 08/09/16 04:00 77 08/09/16 04:00 97.8 87 21 120/57 93 Room Air 08/09/16 00:00 86 08/09/16 00:00 97.0 87 21 118/48 98 Room Air Intake and Output 08/08/16 08/09/16 19:00 07:00 Intake Total 120 ml Output Total 150 ml Balance -150 ml 120 ml Intake Oral 120 ml Output Urine Total 150 ml # Voids 2 # Bowel Movements 1 Height (Feet): 5 Height (Inches): 10.00 Weight (Pounds): 176 General Appearance: no apparent distress Cardiovascular: normal rate, regular rhythm Respiratory/Chest: lungs clear Abdomen: non tender, soft Extremities: moderate edema Neurologic: alert EV NG Aug 09, 2016 22:33
[2016-08-10] VITALS (7 sets, daily range): BP systolic 124–140; BP diastolic 54–78
[2016-08-10 08:00] LABS: MEAN CORPUSCULAR HEMOGLOBIN 28.1 PG (27.0-31.0); MEAN CORPUSCULAR HGB CONC 30.9 G/DL (32.0-36.0); MEAN CORPUSCULAR VOLUME 91 FL (80-99); MEAN PLATELET VOLUME 6.4 FL (6.5-10.1); PLATELET COUNT 302 K/UL (150-450); RED BLOOD COUNT 3.61 M/UL (4.70-6.10); RED CELL DISTRIBUTION WIDTH 15.1 % (11.6-14.8); WHITE BLOOD COUNT 9.5 K/UL (4.8-10.8)
[2016-08-10 08:27] LABS: ALANINE AMINOTRANSFERASE 31 U/L (3-41); ALBUMIN/GLOBULIN RATIO 0.5 (1.0-2.7); ANION GAP 20 (5-15); ASPARTATE AMINO TRANSFERASE 97 U/L (5-40); CALCIUM 8.5 mg/dL (8.6-10.2); CARBON DIOXIDE 21 mEQ/L (20-30); CHLORIDE 98 mEQ/L (98-107); CREATININE 2.7 mg/dL (0.7-1.2); HEMOLYSIS 2; POTASSIUM 4.8 mEQ/L (3.4-4.9); SODIUM 139 mEQ/L (135-145); TOTAL PROTEIN 6.2 g/dL (6.6-8.7)
--- NOTE | 2016-08-10 08:41 | General Progress Note ---
Assessment/Plan Assessment/Plan (1) Intractable Abdominal pain (2) Metastatic hepatocellular carcinoma (3) Liver Cirrhosis (4) Hep C The patient will be continued on the OxyContin, Dilaudid parameters to be continued. The patient was discussed with Dr. Smith and Dr. Smith concurred. Subjective Date patient seen: Aug 10, 2016 Time patient seen: 08:00 - am Allergies: Coded Allergies: PENICILLINS (Verified Allergy, Intermediate, 12/06/15) Subjective REVIEW OF SYSTEMS: He is complaining of intractable abdominal pain. SUBJECTIVE: Pt is awake and alert and reports that his pain is a 10/10 and is taken away on the Oxycontin and Dilaudid Objective Last 24 Hour Vital Signs Date Time Temp Pulse Resp B/P Pulse Ox O2 Delivery O2 Flow Rate FiO2 08/10/16 07:44 97.2 87 20 140/57 94 Room Air 08/10/16 06:06 84 122/66 08/10/16 04:00 98.2 83 20 124/69 95 Room Air 08/10/16 04:00 81 08/10/16 00:00 85 08/10/16 00:00 97.2 87 20 128/56 Room Air 08/09/16 22:26 88 120/52 08/09/16 20:00 97.2 88 20 119/47 Room Air 08/09/16 20:00 84 08/09/16 16:00 85 08/09/16 15:48 97.0 82 20 112/45 96 Nasal Cannula 4.0 08/09/16 13:39 86 122/54 08/09/16 13:17 122/54 08/09/16 12:00 79 08/09/16 11:56 97.0 86 20 127/46 97 Nasal Cannula 4.0 08/09/16 10:58 122/47 08/09/16 09:11 143/67 Intake and Output 08/09/16 08/10/16 19:00 07:00 Intake Total 120 ml 80 ml Balance 120 ml 80 ml Intake Oral 120 ml 80 ml # Voids 3 3 # Bowel Movements 1 1 Laboratory Tests 08/10/16 07:05: White Blood Count 9.5, Red Blood Count 3.61L, Hemoglobin 10.1L, Hematocrit 32.8L , Mean Corpuscular Volume 91, Mean Corpuscular Hemoglobin 28.1, Mean Corpuscular Hemoglobin Concent 30.9L, Red Cell Distribution Width 15.1H, Platelet Count 302, Mean Platelet Volume 6.4L, Neutrophils (%) (Auto) , Lymphocytes (%) (Auto) , Monocytes (%) (Auto) , Eosinophils (%) (Auto) , Basophils (%) (Auto) , Neutrophils % (Manual) [Pending], Lymphocytes % (Manual) [Pending], Platelet Estimate [Pending], Platelet Morphology [Pending], Sodium Level 139, Potassium Level 4.8, Chloride Level 98, Carbon Dioxide Level 21, Anion Gap 20H, Blood Urea Nitrogen 103H, Creatinine 2.7H, Estimat Glomerular Filtration Rate , Glucose Level 106, Calcium Level 8.5L, Total Bilirubin 1.0, Aspartate Amino Transf (AST/SGOT) 97H, Alanine Aminotransferase (ALT/SGPT) 31, Alkaline Phosphatase 282H, Total Protein 6.2L, Albumin 2.1L, Globulin 4.1, Albumin/Globulin Ratio 0.5L Height (Feet): 5 Height (Inches): 10.00 Weight (Pounds): 176 Objective GENERAL: Alert. HEENT: PERRLA. Sclerae icteric. LUNGS: Decreased breath sounds bilaterally. HEART: S1 and S2. Regular. ABDOMEN: Distended with tenderness to palpation. EXTREMITIES: No cyanosis. No clubbing. No edema noted. NEUROLOGIC: Unable to obtain due to the patient's current condition. IFRAH ADAME Aug 10, 2016 08:41
[2016-08-10] MEDS: oxyCONTIN 10mg tab ORAL SCH (09:00)
[2016-08-10] MEDS: Furosemide 40mg tab ORAL SCH ×2 (09:00→10:27)
[2016-08-10 10:02] LABS: ANISOCYTOSIS 1+; BAND NEUTROPHILS % (MANUAL) 0 % (0-8); BASOPHILS % (MANUAL) 0 % (0-2); EOSINOPHILS % (MANUAL) 1 % (0-3); HYPOCHROMASIA 1+; LYMPHOCYTES % (MANUAL) 2 % (20-45); NEUTROPHILS % (MANUAL) 89 % (45-75); PLATELET ESTIMATE ADEQUATE; PLATELET MORPHOLOGY NORMAL; TOTAL CELLS COUNTED 100
--- NOTE | 2016-08-10 11:18 | Pulmonology Progress Note ---
Assessment/Plan Assessment/Plan IMPRESSION: 1. Right rib lesion/lung mass. 2. Cirrhosis with ascites. 3. Metastatic HCC DISCUSSION: Will follow prn Dilaudid q 3 hrly Oncology following Subjective Interval Events: none Constitutional: Reports: no symptoms HEENT: Repors: no symptoms Respiratory: Reports: no symptoms Cardiovascular: Reports: no symptoms Allergies: Coded Allergies: PENICILLINS (Verified Allergy, Intermediate, 12/06/15) Objective Last 24 Hour Vital Signs Date Time Temp Pulse Resp B/P Pulse Ox O2 Delivery O2 Flow Rate FiO2 08/10/16 07:44 97.2 87 20 140/57 94 Room Air 08/10/16 06:06 84 122/66 08/10/16 04:00 98.2 83 20 124/69 95 Room Air 08/10/16 04:00 81 08/10/16 00:00 85 08/10/16 00:00 97.2 87 20 128/56 Room Air 08/09/16 22:26 88 120/52 08/09/16 20:00 97.2 88 20 119/47 Room Air 08/09/16 20:00 84 08/09/16 16:00 85 08/09/16 15:48 97.0 82 20 112/45 96 Nasal Cannula 4.0 08/09/16 13:39 86 122/54 08/09/16 13:17 122/54 08/09/16 12:00 79 08/09/16 11:56 97.0 86 20 127/46 97 Nasal Cannula 4.0 Intake and Output 08/09/16 08/10/16 19:00 07:00 Intake Total 120 ml 80 ml Balance 120 ml 80 ml Intake Oral 120 ml 80 ml # Voids 3 3 # Bowel Movements 1 1 HEENT: normocephalic Respiratory/Chest: chest wall non-tender Cardiovascular: normal peripheral pulses Abdomen: normal bowel sounds Extremities: no cyanosis Laboratory Tests 08/10/16 07:05: White Blood Count 9.5, Red Blood Count 3.61L, Hemoglobin 10.1L, Hematocrit 32.8L , Mean Corpuscular Volume 91, Mean Corpuscular Hemoglobin 28.1, Mean Corpuscular Hemoglobin Concent 30.9L, Red Cell Distribution Width 15.1H, Platelet Count 302, Mean Platelet Volume 6.4L, Neutrophils (%) (Auto) , Lymphocytes (%) (Auto) , Monocytes (%) (Auto) , Eosinophils (%) (Auto) , Basophils (%) (Auto) , Differential Total Cells Counted 100, Neutrophils % ( Manual) 89H, Lymphocytes % (Manual) 2L, Monocytes % (Manual) 8, Eosinophils % ( Manual) 1, Basophils % (Manual) 0, Band Neutrophils 0, Platelet Estimate Adequate, Platelet Morphology Normal, Hypochromasia 1+, Anisocytosis 1+, Sodium Level 139, Potassium Level 4.8, Chloride Level 98, Carbon Dioxide Level 21, Anion Gap 20H, Blood Urea Nitrogen 103H, Creatinine 2.7H, Estimat Glomerular Filtration Rate , Glucose Level 106, Calcium Level 8.5L, Total Bilirubin 1.0, Aspartate Amino Transf (AST/SGOT) 97H, Alanine Aminotransferase (ALT/SGPT) 31, Alkaline Phosphatase 282H, Total Protein 6.2L, Albumin 2.1L, Globulin 4.1, Albumin/Globulin Ratio 0.5L Current Medications Medications (Trade) Dose Ordered Sig/Cammy Route PRN Reason Start Time Stop Time Status Last Admin Dose Admin Atorvastatin Calcium (Lipitor) 10 mg BEDTIME ORAL 08/02/16 21:00 09/01/16 20:59 08/09/16 20:43 Dextrose (Dextrose 50%) STAT PRN IV Hypoglycemia 08/02/16 19:30 09/01/16 19:29 Diltiazem HCl (Cardizem) 60 mg EVERY 8 HOURS ORAL 08/08/16 22:00 09/07/16 21:59 08/10/16 06:06 Furosemide (Lasix) 40 mg EVERY 12 HOURS ORAL 08/03/16 22:15 09/02/16 22:14 08/09/16 20:43 Gemfibrozil (Lopid) 600 mg BID ORAL 08/02/16 18:00 09/01/16 17:59 08/09/16 17:46 Hydromorphone HCl (Dilaudid) 2 mg Q3H PRN SUBQ For Pain 08/05/16 15:45 08/12/16 15:44 08/09/16 06:40 Insulin Detemir (Levemir) 20 units BEDTIME SUBQ 08/02/16 21:00 09/01/16 20:59 08/08/16 21:24 Mirtazapine (Remeron) 7.5 mg BEDTIME ORAL 08/03/16 21:00 09/02/16 20:59 08/09/16 20:43 Ondansetron HCl (Zofran ODT) 4 mg EVERY 4 HOURS PRN SL Nausea & Vomiting 08/03/16 22:15 09/02/16 22:14 08/04/16 17:27 Oxycodone HCl (OxyCONTIN) 10 mg Q12HR ORAL 08/05/16 21:00 08/12/16 20:59 08/09/16 20:44 Pantoprazole (Protonix) 40 mg DAILY ORAL 08/02/16 12:00 09/01/16 11:59 08/09/16 09:12 Dante Dasilva MD Aug 10, 2016 11:18
[2016-08-10] MEDS: HYDROmorphone 1mg/ml Carpuject SUBQ PRN ×2 (11:19→15:19)
--- NOTE | 2016-08-10 16:13 | General Progress Note ---
Assessment/Plan Assessment/Plan Assessment/Recs # Metastatic hepatocellular carcinoma with bony metastasis, based on IHC immunohistochemistry staining, with a hx of hepatitis C, Asparginase++ as is Hepar1++, will need to stain also for AFP ---> have had a extensive discussion with patient and (Michelle) and daughter (Juliann) a RN at [facility] --> may benefit from sorafenib, discuss with patient since diagnosis now confirmed, this is a PO medication, has referral to Dr. Anuj Maki ---> will need outpatient followup and will need to improve in terms of ambulatory status prior to TKI (sorafenib) a PO medication ---> pt currently with poor performance status # Cirrhosis. Ascites. Sonographic Gonzalez's sign is positive. r/o cholecytitis # Hx of Hep C s/p paracentesis yielding 1L of fluid, fu labs r/o SBP # FTT - secondary to malignancy # Anemia of chronic disease # Coagulopathy 2/2 cirrhosis # JERARDO # Hyperkalameia # DM Subjective Constitutional: Reports: no symptoms HEENT: Reports: no symptoms Cardiovascular: Reports: no symptoms Respiratory: Reports: no symptoms Gastrointestinal/Abdominal: Reports: no symptoms Genitourinary: Reports: no symptoms Neurologic/Psychiatric: Reports: no symptoms Endocrine: Reports: no symptoms Hematologic/Lymphatic: Reports: no symptoms Allergies: Coded Allergies: PENICILLINS (Verified Allergy, Intermediate, 12/06/15) Subjective will be dc to snf, no fevers/chills Objective Last 24 Hour Vital Signs Date Time Temp Pulse Resp B/P Pulse Ox O2 Delivery O2 Flow Rate FiO2 08/10/16 15:49 97.0 08/10/16 15:38 97.0 89 20 137/74 99 Nasal Cannula 2.0 08/10/16 15:17 135/78 08/10/16 14:00 88 135/78 08/10/16 11:43 97.0 88 20 129/54 94 Room Air 08/10/16 11:17 138/61 08/10/16 07:44 97.2 87 20 140/57 94 Room Air 08/10/16 06:06 84 122/66 08/10/16 04:00 98.2 83 20 124/69 95 Room Air 08/10/16 04:00 81 08/10/16 00:00 85 08/10/16 00:00 97.2 87 20 128/56 Room Air 08/09/16 22:26 88 120/52 08/09/16 20:00 97.2 88 20 119/47 Room Air 08/09/16 20:00 84 Intake and Output 08/09/16 08/10/16 19:00 07:00 Intake Total 120 ml 80 ml Balance 120 ml 80 ml Intake Oral 120 ml 80 ml # Voids 3 3 # Bowel Movements 1 1 Laboratory Tests 08/10/16 07:05: White Blood Count 9.5, Red Blood Count 3.61L, Hemoglobin 10.1L, Hematocrit 32.8L , Mean Corpuscular Volume 91, Mean Corpuscular Hemoglobin 28.1, Mean Corpuscular Hemoglobin Concent 30.9L, Red Cell Distribution Width 15.1H, Platelet Count 302, Mean Platelet Volume 6.4L, Neutrophils (%) (Auto) , Lymphocytes (%) (Auto) , Monocytes (%) (Auto) , Eosinophils (%) (Auto) , Basophils (%) (Auto) , Differential Total Cells Counted 100, Neutrophils % ( Manual) 89H, Lymphocytes % (Manual) 2L, Monocytes % (Manual) 8, Eosinophils % ( Manual) 1, Basophils % (Manual) 0, Band Neutrophils 0, Platelet Estimate Adequate, Platelet Morphology Normal, Hypochromasia 1+, Anisocytosis 1+, Sodium Level 139, Potassium Level 4.8, Chloride Level 98, Carbon Dioxide Level 21, Anion Gap 20H, Blood Urea Nitrogen 103H, Creatinine 2.7H, Estimat Glomerular Filtration Rate , Glucose Level 106, Calcium Level 8.5L, Total Bilirubin 1.0, Aspartate Amino Transf (AST/SGOT) 97H, Alanine Aminotransferase (ALT/SGPT) 31, Alkaline Phosphatase 282H, Total Protein 6.2L, Albumin 2.1L, Globulin 4.1, Albumin/Globulin Ratio 0.5L Height (Feet): 5 Height (Inches): 10.00 Weight (Pounds): 176 General Appearance: WD/WN EENT: normal ENT inspection Neck: normal alignment Cardiovascular: normal peripheral pulses Respiratory/Chest: lungs clear Edema: no edema noted Pedal (L), no edema noted Pedal (R) Neurologic: no motor/sensory deficits Skin: warm/dry Sheldon Horowitz Aug 10, 2016 16:13
--- NOTE | 2016-08-10 17:00 | Progress Note ---
DATE: 08/10/2016 SUBJECTIVE: He is doing better. No behavior issues. Calm. Compliant with medication. MENTAL STATUS EXAMINATION: Alert and oriented x3. Mood is slightly anxious. Affect is constricted, congruent with mood. Thought process is concrete. Thought content, no suicidal or homicidal ideation. Cognition is impaired mildly. ASSESSMENT: Stable. PLAN: The patient will be continued on Remeron 7.5 mg p.o. at bedtime. Zaria Treadwell M.D. DR: ABDIFATAH JOB#: [id number] CC:
--- NOTE | 2016-08-11 15:02 | Discharge Summary ---
Discharge Summary Hospital Course Date of Admission Aug 02, 2016 at 03:35 Date of Discharge Aug 10, 2016 at 18:18 Admitting Diagnosis Hepatic encephalopathy HPI Nassaad Galvan is a 71 year old male who was admitted on Aug 02, 2016 at 03:35 for Hepatic Encephalopathy Hospital Course [id number] Discharge Discharge Disposition Patient was discharged to snf Discharge Diagnoses: Mckenna Ortega NP Aug 11, 2016 15:02
--- NOTE | 2016-08-11 23:31 | Discharge Summary 2 SIG ---
DATE OF ADMISSION: 08/02/2016 DATE OF DISCHARGE: 08/10/2016 CONSULTANTS: 1. Tarun Childs M.D. 2. Jamar Smith M.D. 3. Sheldon Horowitz M.D. 4. Zaria Treadwell M.D. 5. Dante Dasilva M.D. BRIEF HOSPITAL COURSE: The patient is a 71-year-old male with liver cirrhosis, hepatitis C, ascites, diabetes mellitus and hypertension, presented to ED complaining of generalized weakness. The patient initially presented to [facility] emergency room then came to [facility] where on evaluation, the patient initially had potassium of 5.6 at [facility] came here repeat potassium was 4.9. EKG showed normal sinus rhythm. He was admitted for failure to thrive, anemia and mass on the right lung, which was seen from earlier admission. He was seen by Dr. Childs for management of tachycardia and hypertension. He had episodes of atrial fibrillation with rapid ventricular response, which converted to sinus rhythm after digoxin and Cardizem. He was continued on Cardizem and Lasix and Lipitor and Lopid. Echocardiogram done showed an ejection fraction of 55% and moderate pulmonary hypertension. Dr. Dasilva was consulted for evaluation of lung mass. He was also followed by oncologist. CT-guided biopsy of the right rib mass showed metastatic carcinoma. The patient has hepatocellular carcinoma with bone mets based on immunohistochemistry screening and history of hepatitis C. He was diagnosed to have encephalopathy with delirium and depression and was started on low dose of Remeron. Extensive discussion with the patient's family was done and explained that the patient may benefit from Sorafenib since diagnoses is now confirmed that this is a p.o. medication. He was given referral to follow up with Dr. Anuj Maki and will need outpatient follow up and need to improve in terms of ambulatory status prior to Sorafenib p.o. medication. He was eventually discharged to SNF. FINAL DIAGNOSES: 1. Metastatic hepatic carcinoma to the bone and lungs. 2. Anemia. 3. Acute hyperkalemia. 4. Anemia of chronic disease. 5. Failure to thrive. 6. Ascites. 7. Cirrhosis. 8. Hepatitis C. 9. Diabetes mellitus. 10. Anxiety and depression. 11. Acute kidney injury. 12. Atrial fibrillation with rapid ventricular response. 13. Hypertension. 14. Hepatorenal syndrome. 15. Hyperlipidemia. 16. Scattered stage II pressure ulcer on sacral area. Bert Herbert M.D. I have been assigned to dictate discharge summary on this account and I was not involved in the patient's management. Mckenna Ortega N.P. DR: EVELIN JOB#: [id number] CC: YUE
== END 2016-08-10 18:18 | DRG 435 ==
LOC: EMR 01:45 → 2E 03:35 → EDBEDREQ 04:35 → 2E 08-05 05:06
DX: C22.0 Liver cell carcinoma (principal); K76.7 Hepatorenal syndrome; B19.21 Unspecified viral hepatitis C with hepatic coma; D68.9 Coagulation defect, unspecified; L89.152 Pressure ulcer of sacral region, stage 2; C79.51 Secondary malignant neoplasm of bone; C78.00 Secondary malignant neoplasm of unspecified lung; R18.8 Other ascites; E11.9 Type 2 diabetes mellitus without complications; E78.5 Hyperlipidemia, unspecified; I48.91 Unspecified atrial fibrillation; R62.7 Adult failure to thrive; E87.5 Hyperkalemia; K74.69 Other cirrhosis of liver; I10 Essential (primary) hypertension; F41.9 Anxiety disorder, unspecified; F32.9 Major depressive disorder, single episode, unspecified; D63.8 Anemia in other chronic diseases classified elsewhere; Z88.0 Allergy status to penicillin; Z79.84 Long term (current) use of oral hypoglycemic drugs
CPT/HCPCS: 36415; 80048; 80053; 80162; 82140; 82962; 83880; 84439; 84443; 84484; 85007; 85025; 85610; 87081; 93005; 93306; 93970; S5561

== ENCOUNTER 2016-08-16 10:23 | Inpatient (IN) | payer MEDICARE ==
[~2016-08-16] VITALS: Ht 182.9 cm; Wt 76.2 kg
[~2016-08-16 10:23] MED LIST changes: +HYDROCODON-ACE1 EA13 ORAL; +LANTUS5 UNITS SUBQ; +OMEPRAZOLE20 M3 ORAL
[2016-08-16 10:42] LABS: ABG BASE EXCESS -7.2; ABG PCO2 38.1 mmHg (35.0-45.0)
[2016-08-16] MEDS ORDERED: DILAUDID2 MG ORAL (11:16)
[2016-08-16] MEDS ORDERED: FUROSEMIDE40 MG ORAL (11:18)
[2016-08-16] MEDS ORDERED: LOVASTATIN20 MG ORAL (11:19)
[2016-08-16] MEDS ORDERED: TUBERSOL5 TUB UNIT ID (11:20)
[2016-08-16] MEDS ORDERED: ACETAMINOPHEN-1 EAC1 ORAL (11:20)
[2016-08-16 11:29] VITALS: BP 97/38
[2016-08-16 11:38] LABS: MEAN CORPUSCULAR HEMOGLOBIN 28.3 PG (27.0-31.0); MEAN CORPUSCULAR HGB CONC 31.4 G/DL (32.0-36.0); MEAN CORPUSCULAR VOLUME 90 FL (80-99); MEAN PLATELET VOLUME 6.2 FL (6.5-10.1); PLATELET COUNT 349 K/UL (150-450); RED BLOOD COUNT 3.58 M/UL (4.70-6.10); RED CELL DISTRIBUTION WIDTH 15.8 % (11.6-14.8); WHITE BLOOD COUNT 21.8 K/UL (4.8-10.8)
[2016-08-16 11:53] LABS: ALANINE AMINOTRANSFERASE 38 U/L (3-41); ALBUMIN/GLOBULIN RATIO 0.4 (1.0-2.7); ANION GAP 18 (5-15); ASPARTATE AMINO TRANSFERASE 90 U/L (5-40); CARBON DIOXIDE 19 mEQ/L (20-30); CHLORIDE 101 mEQ/L (98-107); CREATININE 4.5 mg/dL (0.7-1.2); HEMOLYSIS 9; POTASSIUM 5.9 mEQ/L (3.4-4.9); SODIUM 138 mEQ/L (135-145); TOTAL PROTEIN 5.7 g/dL (6.6-8.7); TROPONIN I < 0.30 ng/mL (<=0.30)
[2016-08-16] MEDS ORDERED: Morphine Sulfate 2mg/ml Inj IVP ONE ×2 (12:00→16:45)
[2016-08-16 12:04] LABS: CKMB 1.9 ng/mL (< 6.7)
[2016-08-16 12:06] LABS: ANISOCYTOSIS 1+; BAND NEUTROPHILS % (MANUAL) 0 % (0-8); BASOPHILS % (MANUAL) 0 % (0-2); EOSINOPHILS % (MANUAL) 0 % (0-3); HYPOCHROMASIA 1+; LYMPHOCYTES % (MANUAL) 3 % (20-45); NEUTROPHILS % (MANUAL) 94 % (45-75); PLATELET ESTIMATE ADEQUATE; PLATELET MORPHOLOGY NORMAL; TOTAL CELLS COUNTED 100
[2016-08-16] MEDS ORDERED: Sodium Polystyrene Sulfonate 15gm Powder ORAL ONE (12:15)
[2016-08-16 12:34] LABS: ABG BASE EXCESS -8.1; ABG PCO2 32.3 mmHg (35.0-45.0)
[2016-08-16 12:35] LABS: ABG ALLEN TEST POSITIVE
[2016-08-16] MEDS ORDERED: Metoprolol 5mg/5ml Inj IVP ONE (12:45)
[2016-08-16 13:13] LABS: APPEARANCE,URINE CLEAR; KETONES,URINE NEGATIVE (NEGATIVE); LEUKOCYTE ESTERASE ,URINE 1+ (NEGATIVE); NITRITE,URINE NEGATIVE (NEGATIVE); PH,URINE 5 (4.5-8.0); PROTEIN,URINE NEGATIVE (NEGATIVE); UROBILINOGEN,URINE NORMAL MG/DL (0.0-1.0)
[2016-08-16 13:25] VITALS: BP 83/55
[2016-08-16 13:28] LABS: AMORPHOUS SEDIMENT,UR FEW /LPF; BACTERIA,URINE FEW /HPF; RBC,URINE 0-2 /HPF (0 - 0); SQUAMOUS EPITHELIAL CELL,UR OCCASIONAL /LPF (NONE/OCC)
[2016-08-16] MEDS ORDERED: LORazepam Inj 2mg/ml 1ml IV ONE ×2 (14:00→16:15)
[2016-08-16] MEDS ORDERED: Phenylephrine 10mg/ml 5ml vial IV ONE (14:27)
--- NOTE | 2016-08-16 14:59 | Emergency Room Report ---
History of Present Illness General Chief Complaint: Dyspnea/Respdistress Source: EMS Present Illness HPI 71-year-old male presents ED complaining of shortness of breath x1 day. Hypotensive. [facility]. Daughter at bedside states patient has history of lung cancer. No fevers or chills. Patient denies chest pain. No other aggravating or relieving factors. Denies any other associated symptoms Allergies: Coded Allergies: PENICILLINS (Verified Allergy, Intermediate, 12/06/15) Uncoded Allergies: PENICILLIN (Allergy, Unknown, 08/16/16) Patient History Past Medical History: DM, HTN Past Surgical History: none Pertinent Family History: none Social History: Denies: alcohol use, drug use, smoking Immunizations: UTD Reviewed Nursing Documentation: PMH: Agreed, PSxH: Agreed Nursing Documentation-PMH Past Medical History: No History, Except For Hx Hypertension: Yes Hx Diabetes: Yes Hx Cancer: No Hx Gastrointestinal Problems: Yes - HEP C, HEPATOMEGALLY Hx Weakness: Yes Hx Fatigue: Yes Review of Systems All Other Systems: negative except mentioned in HPI Physical Exam Vital Signs Date Time Temp Pulse Resp B/P Pulse Ox O2 Delivery O2 Flow Rate FiO2 08/16/16 10:17 97.9 82 24 93/48 100 Non-Rebreather 15.0 08/16/16 13:00 35 Sp02 EP Interpretation: reviewed, normal General Appearance: mild distress, thin Head: normocephalic Eyes: bilateral eye PERRL, bilateral eye normal inspection ENT: hearing grossly normal, normal pharynx, no angioedema, normal voice Neck: full range of motion, supple/symm/no masses Respiratory: crackles Cardiovascular #1: tachycardia Gastrointestinal: normal bowel sounds, non tender, soft, non-distended, no guarding, no rebound Rectal: deferred Genitourinary: no CVA tenderness Musculoskeletal: normal inspection Neurologic: alert, oriented x3, responsive, motor strength/tone normal, sensory intact, speech normal Psychiatric: judgement/insight normal, memory normal, mood/affect normal, no suicidal/homicidal ideation Skin: normal inspection Lymphatic: normal inspection Procedures Critical Care Time Critical Care Time i. I feel this is a highly complex case requiring extensive working including EKG/Rhythm strip, Xray/CT/US, Blood/urine lab work, repeat exams while in ED, and administration of strong opiates/narcotics for pain control, admission to hospital or close patient follow up. Total time: 30 min bedside evaluation and treatment excludes procedures (EKG). Reason for critical care: Hypoxic, respiratory distress, tachycardic, hypotensive Possible complications: hypotension, hypertension, MN, shock, arrhythmias, metabolic acidosis, end organ damage, respiratory failure. Interventions: Labs, EKG, chest x-ray, IV fluids, BiPAP, antibiotics, push dose pressors Course: patient presents with shortness of breath, hypoxic, tachycardic, hypotensive. Patient had difficult IV access, I placed external jugular IV. Patient given IV fluids. Labs show significant leukocytosis, BUN/creatinine markedly elevated, potassium elevated. EKG shows A. fib with RVR. Chest x-ray shows significant pleural effusion on the right. ABG shows significant hypoxia on room air. Patient placed on BiPAP. BP slowly improving with IV fluids. Antibiotics given. Push dose pressors phenylephrine given Consultations: nursing staff, EMS, family Performed by: Dr Kaufman Tolerated well condition = critical j. because of unstable vital signs this patient had a condition that could potentially threaten life or limb. I feel this is a critical patient who required my full attention while patient was considered critical. Total Critical Care Time excluding procedures was greater than 35 minutes Medical Decision Making Diagnostic Impression: Primary Impression: Respiratory distress Additional Impressions: Hypoxia Pleural effusion ARF (acute renal failure) Qualified Codes: N17.9 - Acute kidney failure, unspecified Hyperkalemia, diminished renal excretion Atrial fibrillation with rapid ventricular response ER Course Hospital Course 71-year-old M presenting to ED with respiratory distress, hypoxic, hypotensive Differential diagnoses include: Pneumonia, CHF exacerbation, pneumothorax, fluid overload Clinical course Patient placed on stretcher. 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 After initial history and physical, I ordered BIPAP. I ordered labs, IV fluids, EKG, chest x-ray, blood cultures, UA. Patient had difficult IV access, I placed external jugular IV. Patient started on IV fluids Labs -leukocytosis noted, hemoglobin/hematocrit stable, BUN/Cr markedly elevated , K 5.8, trop negative, BNP > 7000 EKG - afib with RVR interpreted bym e CXR - significant right-sided pleural effusion ABG shows significant hypoxia Patient O2 saturation improved on BiPAP, patient blood pressure slowly improving with IV fluids however at times becomes hypotensive because of the BiPAP Antibiotics given. Patient given push dose pressor phenylephrine times one with improvement in the blood pressure Patient is now a [facility] patient however given the patient is unstable patient will be admitted here Case discussed with Dr. Perez and he agreed to the patient to his service for further care and support I feel this is a highly complex case requiring extensive working including EKG/ Rhythm strip, Xray/CT/US, Blood/urine lab work, repeat exams while in ED, and administration of strong opiates/narcotics for pain control, admission to hospital or close patient follow up. I discuss patient's prognosis with the family. I offered the option for further care including intubation and central line with pressors. Family stated they do not want central line or intubation at this time. We will continue with IV fluids and push dose pressors when necessary Diagnosis - respiratory distress, hypoxia, pleural effusion, ARF, hyperkalemia, afib with RVR Patient admitted to [facility] in critical condition Labs Test 08/16/16 10:31 08/16/16 11:00 08/16/16 12:32 08/16/16 12:47 Arterial Blood pH 7.310 (7.350-7.450) 7.334 (7.350-7.450) Arterial Blood Partial Pressure CO2 38.1 mmHg (35.0-45.0) 32.3 mmHg (35.0-45.0) Arterial Blood Partial Pressure O2 284.2 mmHg (75.0-100.0) 69.2 mmHg (75.0-100.0) Arterial Blood HCO3 18.5 mmol/L (22.0-26.0) 16.8 mmol/L (22.0-26.0) Arterial Blood Oxygen Saturation 99.0 % (92.0-98.0) 91.1 % (92.0-98.0) Arterial Blood Base Excess -7.2 -8.1 Dhiraj Test Positive White Blood Count 21.8 K/UL (4.8-10.8) Red Blood Count 3.58 M/UL (4.70-6.10) Hemoglobin 10.2 G/DL (14.2-18.0) Hematocrit 32.3 % (42.0-52.0) Mean Corpuscular Volume 90 FL (80-99) Mean Corpuscular Hemoglobin 28.3 PG (27.0-31.0) Mean Corpuscular Hemoglobin Concent 31.4 G/DL (32.0-36.0) Red Cell Distribution Width 15.8 % (11.6-14.8) Platelet Count 349 K/UL (150-450) Mean Platelet Volume 6.2 FL (6.5-10.1) Neutrophils (%) (Auto) % (45.0-75.0) Lymphocytes (%) (Auto) % (20.0-45.0) Monocytes (%) (Auto) % (1.0-10.0) Eosinophils (%) (Auto) % (0.0-3.0) Basophils (%) (Auto) % (0.0-2.0) Differential Total Cells Counted 100 Neutrophils % (Manual) 94 % (45-75) Lymphocytes % (Manual) 3 % (20-45) Monocytes % (Manual) 3 % (1-10) Eosinophils % (Manual) 0 % (0-3) Basophils % (Manual) 0 % (0-2) Band Neutrophils 0 % (0-8) Platelet Estimate Adequate Platelet Morphology Normal Hypochromasia 1+ Anisocytosis 1+ Sodium Level 138 mEQ/L (135-145) Potassium Level 5.9 mEQ/L (3.4-4.9) Chloride Level 101 mEQ/L (98-107) Carbon Dioxide Level 19 mEQ/L (20-30) Anion Gap 18 (5-15) Blood Urea Nitrogen 177 mg/dL (7-23) Creatinine 4.5 mg/dL (0.7-1.2) Estimat Glomerular Filtration Rate mL/min (>60) Glucose Level 219 mg/dL (74-106) Lactic Acid Level 1.60 mmol/L (0.66-2.22) Calcium Level 8.0 mg/dL (8.6-10.2) Total Bilirubin 0.8 mg/dL (0.0-1.2) Aspartate Amino Transf (AST/SGOT) 90 U/L (5-40) Alanine Aminotransferase (ALT/SGPT) 38 U/L (3-41) Alkaline Phosphatase 320 U/L (40-129) Total Creatine Kinase 57 U/L (38-174) Creatine Kinase MB 1.9 ng/mL (< 6.7) Creatine Kinase MB Relative Index 3.3 Troponin I < 0.30 ng/mL (<=0.30) Pro-B-Type Natriuretic Peptide 7330 pg/mL (0-125) Total Protein 5.7 g/dL (6.6-8.7) Albumin 1.8 g/dL (3.5-5.2) Globulin 3.9 g/dL Albumin/Globulin Ratio 0.4 (1.0-2.7) Urine Color Yellow Urine Appearance Clear Urine pH 5 (4.5-8.0) Urine Specific [place] 1.020 (1.005-1.035) Urine Protein Negative (NEGATIVE) Urine Glucose (UA) Negative (NEGATIVE) Urine Ketones Negative (NEGATIVE) Urine Occult Blood Negative (NEGATIVE) Urine Nitrite Negative (NEGATIVE) Urine Bilirubin Negative (NEGATIVE) Urine Urobilinogen Normal MG/DL (0.0-1.0) Urine Leukocyte Esterase 1+ (NEGATIVE) Urine RBC 0-2 /HPF (0 - 0) Urine WBC 2-4 /HPF (0 - 0) Urine Squamous Epithelial Cells Occasional /LPF Urine Amorphous Sediment Few /LPF (NONE) Urine Bacteria Few /HPF (NONE) EKG Diagnostic Results Rate: tachycardiac Rhythm: other - afib with RVR ST Segments: no acute changes ASA given to the pt in ED: Yes Rhythm Strip Diag. Results EP Interpretation: yes Rhythm: no PVC's, no ectopy Chest X-Ray Diagnostic Results Chest X-Ray Diagnostic Results : Chest X-Ray Ordered: Yes # of Views/Limited/Complete: 1 View Indication: Shortness of Breath EP Interpretation: Yes Interpretation: no pneumothorax, no acute cardiopulmonary disease, other - significant pleural effusion Impression: Other - pleural effusion Interpreting ER Provider: Edgardo Kaufman MD Last Vital Signs Date Time Temp Pulse Resp B/P Pulse Ox O2 Delivery O2 Flow Rate FiO2 08/16/16 13:25 134 26 83/55 99 Bi-pap 40 08/16/16 11:29 97.9 08/16/16 11:28 15.0 Status: improved Disposition: ADMITTED INPATIENT Condition: Critical Referrals: EV NG (PCP) EDGARDO KAUFMAN M.D. Aug 16, 2016 14:59
[2016-08-16 15:42] VITALS: BP 94/62
[2016-08-16 18:14] VITALS: BP 97/40
[2016-08-16 19:30] VITALS: BP 98/48
[2016-08-16] MEDS ORDERED: Morphine Sulfate 10mg/5ml Oral Soln ud ORAL PRN (20:15)
[2016-08-16] MEDS ORDERED: Fleet's Enema 133ml RECTAL PRN (20:15)
[2016-08-16] MEDS ORDERED: Miralax 17gm pkt ORAL PRN (20:15)
[2016-08-16] MEDS ORDERED: DuoNeb 0.5-3(2.5)mg/3ml neb INH PRN (20:15)
[2016-08-16] MEDS ORDERED: DiphenhydrAMINE 25mg/10ml Elixir ORAL PRN (20:15)
[2016-08-16] MEDS ORDERED: Zolpidem 5mg tab ORAL PRN (21:00)
[2016-08-16] MEDS ORDERED: Artificial Tears 1.4% Op Soln BOTH EYES PRN (21:15)
[2016-08-16] MEDS ORDERED: Glycopyrrolate 0.2mg/ml 1ml Vial IV PRN (21:15)
[2016-08-16] MEDS: Heparin 5000 units/ml inj SUBQ SCH (21:52)
[2016-08-17] VITALS (7 sets, daily range): BP systolic 90–138; BP diastolic 44–76
[2016-08-17] MEDS: Morphine Sulfate 2mg/ml Inj IVP PRN ×3 (01:09→09:42)
[2016-08-17 08:29] LABS: ABG BASE EXCESS -11.5; ABG PCO2 34.9 mmHg (35.0-45.0)
[2016-08-17 08:30] LABS: ABG ALLEN TEST POSITIVE
[2016-08-17] MEDS: Heparin 5000 units/ml inj SUBQ SCH (09:44)
[2016-08-17 10:10] LABS: MEAN CORPUSCULAR HEMOGLOBIN 27.9 PG (27.0-31.0); MEAN CORPUSCULAR HGB CONC 30.2 G/DL (32.0-36.0); MEAN CORPUSCULAR VOLUME 92 FL (80-99); MEAN PLATELET VOLUME 6.3 FL (6.5-10.1); PLATELET COUNT 282 K/UL (150-450); RED BLOOD COUNT 3.59 M/UL (4.70-6.10); RED CELL DISTRIBUTION WIDTH 16.3 % (11.6-14.8); WHITE BLOOD COUNT 18.2 K/UL (4.8-10.8)
[2016-08-17 10:31] LABS: ANION GAP 18 (5-15); CALCIUM 7.5 mg/dL (8.6-10.2); CARBON DIOXIDE 15 mEQ/L (20-30); CHLORIDE 108 mEQ/L (98-107); CREATININE 4.2 mg/dL (0.7-1.2); HEMOLYSIS 1; POTASSIUM 5.9 mEQ/L (3.4-4.9); SODIUM 141 mEQ/L (135-145)
[2016-08-17 11:29] LABS: BAND NEUTROPHILS % (MANUAL) 0 % (0-8); BASOPHILS % (MANUAL) 0 % (0-2); EOSINOPHILS % (MANUAL) 0 % (0-3); LYMPHOCYTES % (MANUAL) 6 % (20-45); NEUTROPHILS % (MANUAL) 88 % (45-75); PLATELET ESTIMATE ADEQUATE; PLATELET MORPHOLOGY NORMAL
[2016-08-17 11:33] LABS: ANISOCYTOSIS 1+
[2016-08-17 11:35] LABS: HYPOCHROMASIA 1+
[2016-08-17 11:37] LABS: TOTAL CELLS COUNTED 100
--- NOTE | 2016-08-17 11:38 | History & Physical ---
History and Physical History & Physicial Dictated for Int Med-Dr Perez no. [id number]. GALINDO BACON Aug 17, 2016 11:38
[2016-08-17] MEDS ORDERED: PCA Morphine 1mg/ml 30 ML IV PRN ×2 (11:45→11:48)
--- NOTE | 2016-08-17 11:48 | Consultation ---
History of Present Illness General Date patient seen: Aug 17, 2016 Chief Complaint: Dyspnea/Respdistress Referring physician: Dr. Perez Reason for Consultation: respiratory failure Present Illness HPI 71-year-old male with metastatic lung cancer, recurrent hospitalization for untreated symptoms, residing in a penit[facility]iary presented ED complaining of shortness of breath x1 day. Pt was hypotensive. No fevers or chills. Patient denies chest pain. No other aggravating or relieving factors. Denies any other associated symptoms. Allergies: Coded Allergies: PENICILLINS (Verified Allergy, Intermediate, 12/06/15) Uncoded Allergies: PENICILLIN (Allergy, Unknown, 08/16/16) Medication History Scheduled Enalapril Maleate* (Enalapril Maleate*), 10 MG ORAL DAILY, (Reported) Furosemide* (Lasix*), 40 MG ORAL EVERY 12 HOURS, (Reported) Gemfibrozil (Gemfibrozil*), 600 MG ORAL TWICE A DAY, (Reported) Hydrocodone Bit/Acetaminophen 10-325* (Hydrocodon-Acetaminophn 10-325*), 1 TAB ORAL Q12HR, (Reported) Insulin Glargine (Lantus), 0 SUBQ BEDTIME, (Reported) Lovastatin (Lovastatin), 20 MG ORAL BEDTIME, (Reported) Lovastatin (Lovastatin), 20 MG ORAL BEDTIME, (Reported) Metformin Hcl* (Metformin Hcl*), 1,000 MG ORAL TWICE A DAY, (Reported) Omeprazole (Omeprazole), 20.6 MG ORAL DAILY, (Reported) Scheduled PRN Acetaminophen With Codeine (T#3) (Tylenol #3 Tab*), 1 TAB ORAL BID PRN for For Pain, (Reported) Acetaminophen With Codeine (T#3) (Tylenol #3 Tab*), 1 TAB ORAL TWICE A DAY PRN for For Pain, (Reported) Hydromorphone HCl (Dilaudid), 2 MG ORAL Q4H PRN for For Pain, (Reported) Miscellaneous Medications Tuberculin,Purif.prot.deriv. 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 (3) Mass of right lung (4) Ascites (5) Cirrhosis (6) Hepatitis C Review of Systems All Other Systems: negative except mentioned in HPI Physical Exam General Appearance: WD/WN, no apparent distress Lines, tubes and drains: peripheral HEENT: normocephalic, atraumatic Neck: non-tender, normal alignment Respiratory/Chest: chest wall non-tender, lungs clear Cardiovascular/Chest: normal peripheral pulses, normal rate Abdomen: normal bowel sounds, non tender Genitourinary/Rectal: normal genital exam, normal rectal exam Extremities: normal range of motion, non-tender Skin Exam: normal pigmentation, warm/dry Neurologic: geotechnician II-XII grossly normal Last 24 Hour Vital Signs Date Time Temp Pulse Resp B/P Pulse Ox O2 Delivery O2 Flow Rate FiO2 08/17/16 11:22 100 14.0 55 08/17/16 10:15 98.8 08/17/16 09:20 98 19 Venturi Mask 14.0 55 08/17/16 09:19 100 14.0 55 08/17/16 08:00 98.8 86 19 92/44 100 Non-Rebreather 100 08/17/16 08:00 55 08/17/16 08:00 87 08/17/16 04:00 40 08/17/16 04:00 98.7 88 24 98/75 100 Venturi Mask 08/17/16 04:00 80 08/17/16 01:15 90 25 93 Facial 40 08/17/16 00:00 40 08/17/16 00:00 97.7 82 16 108/47 100 Bi-pap 40 08/17/16 00:00 83 08/16/16 23:20 90 20 93 Facial 40 08/16/16 21:25 90 20 91 Facial 40 08/16/16 20:00 40 08/16/16 20:00 87 08/16/16 19:55 98.0 81 20 96/44 93 Bi-pap 15.0 40 08/16/16 19:55 40 08/16/16 19:30 98.0 84 20 98/48 93 15.0 40 08/16/16 19:03 90 20 91 Facial 40 08/16/16 18:14 98.0 81 21 97/40 90 Bi-pap 15.0 40 08/16/16 17:17 98.0 08/16/16 16:55 155 20 92 Full Face 40 08/16/16 15:42 98.0 137 20 94/62 94 Bi-pap 15.0 35 08/16/16 14:42 115 20 92 Full Face 35 08/16/16 13:25 134 26 83/55 99 Bi-pap 40 08/16/16 13:00 140 19 98 Full Face 35 08/16/16 13:00 140 19 Bi-pap 35 08/16/16 12:46 98.0 Intake and Output 08/16/16 08/17/16 19:00 07:00 Intake Total 2100 ml Output Total 400 ml Balance 2100 ml -400 ml Intake IV Total 2100 ml Output Urine Total 400 ml # Bowel Movements 2 Laboratory Tests Test 08/16/16 12:32 08/16/16 12:47 08/17/16 00:00 08/17/16 07:20 Arterial Blood pH 7.334 (7.350-7.450) 7.245 (7.350-7.450) Arterial Blood Partial Pressure CO2 32.3 mmHg (35.0-45.0) L 34.9 mmHg (35.0-45.0) L Arterial Blood Partial Pressure O2 69.2 mmHg (75.0-100.0) L 109.5 mmHg (75.0-100.0) H Arterial Blood HCO3 16.8 mmol/L (22.0-26.0) L 14.8 mmol/L (22.0-26.0) L Arterial Blood Oxygen Saturation 91.1 % (92.0-98.0) L 97.5 % (92.0-98.0) Arterial Blood Base Excess -8.1 -11.5 Dhiraj Test Positive Positive Urine Color Yellow Urine Appearance Clear Urine pH 5 (4.5-8.0) Urine Specific [place] 1.020 (1.005-1.035) Urine Protein Negative (NEGATIVE) Urine Glucose (UA) Negative (NEGATIVE) Urine Ketones Negative (NEGATIVE) Urine Occult Blood Negative (NEGATIVE) Urine Nitrite Negative (NEGATIVE) Urine Bilirubin Negative (NEGATIVE) Urine Urobilinogen Normal MG/DL (0.0-1.0) Urine Leukocyte Esterase 1+ (NEGATIVE) H Urine RBC 0-2 /HPF (0 - 0) H Urine WBC 2-4 /HPF (0 - 0) Urine Squamous Epithelial Cells Occasional /LPF Urine Amorphous Sediment Few /LPF (NONE) H Urine Bacteria Few /HPF (NONE) White Blood Count 18.2 K/UL (4.8-10.8) H Red Blood Count 3.59 M/UL (4.70-6.10) L Hemoglobin 10.0 G/DL (14.2-18.0) L Hematocrit 33.1 % (42.0-52.0) L Mean Corpuscular Volume 92 FL (80-99) Mean Corpuscular Hemoglobin 27.9 PG (27.0-31.0) Mean Corpuscular Hemoglobin Concent 30.2 G/DL (32.0-36.0) L Red Cell Distribution Width 16.3 % (11.6-14.8) H Platelet Count 282 K/UL (150-450) Mean Platelet Volume 6.3 FL (6.5-10.1) L Neutrophils (%) (Auto) % (45.0-75.0) Lymphocytes (%) (Auto) % (20.0-45.0) Monocytes (%) (Auto) % (1.0-10.0) Eosinophils (%) (Auto) % (0.0-3.0) Basophils (%) (Auto) % (0.0-2.0) Differential Total Cells Counted Pending Neutrophils % (Manual) 88 % (45-75) H Lymphocytes % (Manual) 6 % (20-45) L Monocytes % (Manual) 6 % (1-10) Eosinophils % (Manual) 0 % (0-3) Basophils % (Manual) 0 % (0-2) Band Neutrophils 0 % (0-8) Platelet Estimate Adequate Platelet Morphology Normal Hypochromasia 1+ Anisocytosis 1+ Test 08/17/16 09:45 Sodium Level 141 mEQ/L (135-145) Potassium Level 5.9 mEQ/L (3.4-4.9) H Chloride Level 108 mEQ/L (98-107) H Carbon Dioxide Level 15 mEQ/L (20-30) L Anion Gap 18 (5-15) H Blood Urea Nitrogen 160 mg/dL (7-23) H Creatinine 4.2 mg/dL (0.7-1.2) H Estimat Glomerular Filtration Rate mL/min (>60) Glucose Level 136 mg/dL (74-106) H Calcium Level 7.5 mg/dL (8.6-10.2) L Height (Feet): 6 Height (Inches): 0.00 Weight (Pounds): 168 Medications Current Medications Medications (Trade) Dose Ordered Sig/Cammy Route PRN Reason Start Time Stop Time Status Last Admin Dose Admin Acetaminophen (Tylenol) 650 mg Q4H PRN ORAL T>100.5 08/16/16 14:30 09/15/16 14:29 Albuterol/ Ipratropium (DuoNeb 0.5-3(2.5)mg/3ml) 3 ml QIDPRN PRN INH Shortness of Breath 08/16/16 20:15 08/21/16 20:14 Artificial Tears (Akwa-Tears) 1 drop QIDPRN PRN BOTH EYES Dry Eyes 08/16/16 21:15 09/15/16 21:14 Diphenhydramine HCl (Benadryl) 12.5 mg Q4H PRN ORAL Itching/Pruritis 08/16/16 20:15 09/15/16 20:14 Glycopyrrolate (Robinul) 0.1 mg Q6H PRN IV excessive secretions 08/16/16 21:15 09/15/16 21:14 Morphine Sulfate (SPRAY CEMENTER Morphine) 30 ml @ 0 mls/hr SPRAY CEMENTER Protocol PRN IV For Pain 08/17/16 11:45 08/19/16 11:44 UNV Morphine Sulfate 5 mg 5 mg Q3H PRN IVP Breakthrough Pain 08/16/16 21:45 08/23/16 21:44 08/17/16 09:42 Ondansetron HCl (Zofran) 4 mg Q6H PRN IVP Nausea & Vomiting 08/16/16 20:15 09/15/16 20:14 Polyethylene Glycol (Miralax) 17 gm DAILYPRN PRN ORAL Constipation 08/16/16 20:15 09/15/16 20:14 Sodium Phosphate (Fleet's Sodium Phosl Enema) 118 ml DAILYPRN PRN RECTAL UNRELIEVED CONSTIPATION 08/16/16 20:15 09/15/16 20:14 Zolpidem Tartrate (Ambien) 5 mg HSPRN PRN ORAL Insomnia 08/16/16 21:00 09/15/16 20:59 Assessment/Plan Problem List: (1) Hypoxia ICD Codes: R09.02 - Hypoxemia SNOMED: 955908524, 85242728 (2) 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 they are aware of the prognosis and impending . Daughter agreed with morphine drip and private room on the medical floor. We corona stop all unnecessary meds and testing. Vital signs once a day. Morphine will be titrated to patients comfort. ADDIE BRIGGS Aug 17, 2016 11:47
[2016-08-17] MEDS ORDERED: Morphine Sulfate 2mg/ml Inj IVP PRN (12:00)
[2016-08-17] MEDS ORDERED: Morphine Sulfate 2mg/ml Inj SUBQ PRN ×3 (12:00→15:30)
--- NOTE | 2016-08-17 12:02 | Diagnostic Imaging Report ---
Indication: Dyspnea Comparison: 07/26/16 A single view chest radiograph was obtained. Findings: Hazy opacification of the right hemithorax likely due to pleural effusion noted. Mild cardiomegaly is present. There is atelectasis noted. Bones are osteopenic. Impression: Suspected right pleural effusion.
--- NOTE | 2016-08-17 14:01 | History and Physical Report ---
DATE OF ADMISSION: 08/16/2016 CHIEF COMPLAINT: The patient is a 71-year-old male, presents with complaint of shortness of breath. HISTORY OF PRESENT ILLNESS: The patient was admitted to [facility] from 08/02/2016 to 08/10/2016. Please see history and physical and discharge summary dictated at that time. The patient has a history of metastatic hepatocellular cancer. The patient has metastases to the bone. The patient also has a right lung mass. The patient is currently a resident of [facility]. According to staff at [facility], the patient became increasing short of breath yesterday 08/16/2016. The patient was transferred to [place] emergency room. A chest x-ray revealed an extensive right pleural effusion. The patient was admitted for respiratory failure. PAST MEDICAL HISTORY: Significant for: 1. Hepatocellular cancer with metastases to the bone. 2. Right lung mass. 3. Anemia of chronic disease. 4. Cirrhosis of liver. 5. Chronic renal failure. 6. Ascites. 7. Hepatitis C. 8. Diabetes type 2. PAST SURGICAL HISTORY: None. CURRENT MEDICATIONS: 1. Dilaudid 2 mg one tablet p.o. q.4 hours p.r.n. 2. Vasotec 10 mg one tablet p.o. daily. 3. Gemfibrozil 600 mg one tablet p.o. twice daily. 4. [place] 10/325 mg one tablet p.o. twice daily. 5. Lantus insulin 20 units subcutaneously at bedtime. 6. Lasix 40 mg one tablet p.o. twice daily. 7. Lovastatin 20 mg one tablet p.o. at bedtime. 8. Metformin 1000 mg one tablet p.o. twice daily. 9. Omeprazole 20 mg one tablet p.o. daily. 10. Tylenol No. 3, one tablet p.o. twice daily p.r.n. ALLERGIES: The patient denies allergies to penicillin. SOCIAL HISTORY: The patient is . The patient's daughter is at the bedside. The patient denies current tobacco or alcohol use. REVIEW OF SYSTEMS: Constitutional: The patient does have a history of weight loss. The patient denies fevers or chills. HEENT: The patient denies ear or throat pain. Review of systems unable to assess secondary to the patient's lethargy. PHYSICAL EXAMINATION: VITAL SIGNS: Temperature 98.7, respirations 19 to 24, pulse 80 to 88, blood pressure 92 to 98/44 to 75. GENERAL: The patient is a cachectic male who is lethargic. HEENT: Eyes, pupils are equal and responsive to light and accommodation. Extraocular movements are intact. NECK: Supple without lymphadenopathy. There is a right IJ line noted. CHEST: Diffuse crackles and wheezes bilaterally without stridor. CARDIOVASCULAR: Tachycardic, regular rhythm. S1 and S2 normal without murmurs, rubs, or gallops. ABDOMEN: Soft, nontender, and nondistended. Positive bowel sounds. No evidence of hepatosplenomegaly. Currently, no rebound or guarding. EXTREMITIES: Negative for clubbing, cyanosis, or edema. NEUROLOGIC: Cranial nerves II through XII are grossly intact without focal deficits. LABORATORY STUDIES: WBC 21.8, hemoglobin 10.2, hematocrit 32.3, and platelets . Sodium 138, potassium 5.9, chloride 101, CO2 19, BUN 177, creatinine 4.5, and glucose 219. BNP elevated at 7330. Blood gas reveals pH 7.310, pCO2 38.1, pO2 284.2, bicarb 18.5, O2 saturation 99.0, and base excess -7.2. Chest x-ray revealed right-sided pleural effusion. ASSESSMENT: This is a 71-year-old male. 1. Right-sided pleural effusion. 2. Hepatocellular cancer with metastases to the bone. 3. Shortness of breath. 4. Right lung mass. 5. Anemia of chronic disease. 6. Renal failure. 7. Cirrhosis of the liver. 8. Congestive heart failure. 9. Ascites. 10. Hepatitis C. 11. Diabetes type 2. 12. Leukocytosis. TREATMENT: 1. Right-sided pleural effusion/right-sided lung mass. A Pulmonary consultation has been obtained with Dr. Tobi Carlton. We will follow recommendation of Dr. Carlton. The patient appears to be terminal at this point. The patient's family is deciding on comfort care only. 2. Hepatocellular cancer with metastases. As above, the patient's family is deciding on comfort care only. 3. Anemia of chronic disease. 4. Cirrhosis of the liver. 5. Renal failure. The patient has been previously seen by Dr. Bert Herbert. Should the family desire a Nephrology consultation will be obtained. 6. Congestive heart failure. 7. Ascites. 8. Hepatitis C. 9. Diabetes type 2. The patient will remain on a NovoLog sliding scale during the hospitalization. 10. Leukocytosis. Reinaldo Gabriel M.D. DR: GONZÁLEZ JOB#: [id number] CC:
[2016-08-17] MEDS ORDERED: Rate Change Narcotic Drip MISC PRN (15:30)
[2016-08-17] MEDS ORDERED: Glycopyrrolate 0.2mg/ml 1ml Vial IV PRN (16:00)
[2016-08-17] MEDS ORDERED: DuoNeb 0.5-3(2.5)mg/3ml neb INH PRN (16:00)
[2016-08-17] MEDS ORDERED: Artificial Tears 1.4% Op Soln BOTH EYES PRN (16:00)
[2016-08-17] MEDS ORDERED: Miralax 17gm pkt ORAL PRN (16:00)
[2016-08-17] MEDS ORDERED: Fleet's Enema 133ml RECTAL PRN (16:00)
[2016-08-17] MEDS ORDERED: DiphenhydrAMINE 25mg/10ml Elixir ORAL PRN (16:15)
[2016-08-17] MEDS: PCA Morphine 1mg/ml 30 ML IV PRN ×2 (16:34→20:48)
--- NOTE | 2016-08-17 16:54 | Cardiology Report ---
APPROVED REPORT EKG Measurement Heart [id number] Atrial fibrillation with rapid ventricular response Cannot rule out Anterior infarct, age undetermined Abnormal ECG
[2016-08-17] MEDS: Narcotic Shift Volume MISC SCH (19:29)
[2016-08-17] MEDS ORDERED: Zolpidem 5mg tab ORAL PRN (21:00)
--- NOTE | 2016-08-18 01:53 | Wound Care Consultation ---
Wound Assessment Wound Assessment #1: Wound Number: #1 Wound Present on Admission: Yes New Wound: No Status Change of Wound: No Wound Location Body Site Modif: mid Wound Location Body Site: sacral Wound Type: pressure ulcer Tj Test: Does not Tj Pressure Ulcer Stage: IV/unstageable - scattered unstageable Wound Thickness: Full Thickness Wound Length: 3.5 Wound Width: 3.5 Wound Depth: utd Percent of Wound [place]/Red: 40 Percent of Wound Bed Yellow/Wh: 60 Wound Drainage Description: Serosanguineous Wound Drainage Amount: Moderate Wound Drainage Odor: None/Absent Tissue Surrounding Wound: Macerated Wound General Appearance: Reddened, Draining Wound Assessment #2: Wound Number: #2 Wound Present on Admission: Yes New Wound: No Status Change of Wound: No Wound Location Body Site Modif: right, lateral Wound Location Body Site: malleolus/ankle Wound Type: pressure ulcer Tj Test: Does not Tj Pressure Ulcer Stage: IV/unstageable Wound Thickness: Full Thickness Wound Length: 1.5 Wound Width: 1.5 Wound Depth: utd Percent of Wound Black/Brown: 20 Percent of Wound Purple/Maroon: 80 Wound Drainage Amount: None Wound Drainage Odor: None/Absent Tissue Surrounding Wound: Indurated Wound Assessment #3: Wound Number: #3 Wound Present on Admission: Yes New Wound: No Status Change of Wound: No Wound Location Body Site Modif: left Wound Location Body Site: heel Wound Type: pressure ulcer Tj Test: Does not Tj Pressure Ulcer Stage: deep tissue injury Wound Thickness: Full Thickness Wound Length: 3.5 Wound Width: 3.5 Wound Depth: utd Percent of Wound Purple/Maroon: 100 Wound Drainage Amount: None Wound Drainage Odor: None/Absent Tissue Surrounding Wound: Erythemic Wound General Appearance: Reddened - purple Wound Assessment #4: Wound Number: #4 Wound Present on Admission: Yes New Wound: No Status Change of Wound: No Wound Location Body Site Modif: right Wound Location Body Site: heel Wound Type: pressure ulcer Tj Test: Does not Tj Pressure Ulcer Stage: deep tissue injury Wound Thickness: Full Thickness Wound Length: 2.5 Wound Width: 3.0 Wound Depth: utd Percent of Wound Purple/Maroon: 100 Wound Drainage Amount: None Wound Drainage Odor: None/Absent Tissue Surrounding Wound: Erythemic Wound General Appearance: Reddened - purple Wound Comment #1 Sacral area scattered unstageable pressure ulcers #2 Left heel DTI pressure ulcer #3 Right heel DTI pressure ulcer #4 Right lateral malleolus unstageable pressure ulcer Recommendation -Sacral scattered unstageable pressure ulcer and Right lateral malleolus pressure ulcer Cleanse with saline, pat dry, apply Triad cream, cover with bordered gauze daily and PRN soiled/dislodged -Local wound care per protocol for DTI on both heels -Keep clean and dry -Turn and reposition -Optimize nutrition -Low air loss mattress -Offload both heels -Heel protector on both heels -Assess and f/u accordingly for any changes LC RIZZO RN Aug 18, 2016 01:53
[2016-08-18 04:00] VITALS: BP 97/65
[2016-08-18] MEDS: PCA Morphine 1mg/ml 30 ML IV PRN ×2 (04:34→10:32)
[2016-08-18 06:31] VITALS: BP 95/45
[2016-08-18] MEDS: Narcotic Shift Volume MISC SCH (07:00)
[2016-08-18] MEDS ORDERED: NS 275ml ONE (17:15)
--- NOTE | 2016-08-18 17:20 | Internal Med Progress Note ---
Subjective Date of Service: Aug 18, 2016 Physician Name Reinaldo Bacon Attending Physician Percy Perez MD Current Medications Medications (Trade) Dose Ordered Sig/Cammy Route PRN Reason Start Time Stop Time Status Last Admin Dose Admin Acetaminophen (Tylenol) 650 mg Q4H PRN ORAL T>100.5 08/17/16 18:30 09/16/16 18:29 Albuterol/ Ipratropium (DuoNeb 0.5-3(2.5)mg/3ml) 3 ml QIDPRN PRN INH Shortness of Breath 08/17/16 16:00 08/22/16 15:59 Artificial Tears (Akwa-Tears) 1 drop QIDPRN PRN BOTH EYES Dry Eyes 08/17/16 16:00 09/16/16 15:59 Diphenhydramine HCl (Benadryl) 12.5 mg Q4H PRN ORAL Itching/Pruritis 08/17/16 16:15 09/16/16 16:14 Glycopyrrolate (Robinul) 0.1 mg Q6H PRN IV excessive secretions 08/17/16 16:00 09/16/16 15:59 Miscellaneous Medication (Narcotic Drip Rate Change) 1 ea DAILY PRN MISC . 08/17/16 15:30 09/16/16 15:29 Miscellaneous Medication (Narcotic Shift Volume) 1 ea Q12HR@0700,1900 MISC 08/17/16 19:00 09/16/16 18:59 08/18/16 07:00 Morphine Sulfate (Morphine Sulfate) 4 mg Q3H PRN SUBQ SEVERE BREAKTHRU PAIN 08/17/16 15:30 09/16/16 15:29 Morphine Sulfate (ELECTRICIAN SHIP Morphine) 30 ml @ 5 mls/hr ELECTRICIAN SHIP Protocol PRN IV *PAIN COMFORT CARE USE ONLY* 08/17/16 15:30 09/16/16 15:29 08/18/16 10:32 Ondansetron HCl (Zofran) 4 mg Q6H PRN IVP Nausea & Vomiting 08/17/16 16:00 09/16/16 15:59 Polyethylene Glycol (Miralax) 17 gm DAILYPRN PRN ORAL Constipation 08/17/16 16:00 09/16/16 15:59 Sodium Phosphate (Fleet's Sodium Phosl Enema) 118 ml DAILYPRN PRN RECTAL UNRELIEVED CONSTIPATION 08/17/16 16:00 09/16/16 15:59 Zolpidem Tartrate (Ambien) 5 mg HSPRN PRN ORAL Insomnia 08/17/16 21:00 09/16/16 20:59 Allergies: Coded Allergies: PENICILLINS (Verified Allergy, Intermediate, 12/06/15) ROS Limited/Unobtainable: Yes Subjective 71 YO M admitted with hepatocellular cancer with mets and shortness of breath. Now right pleural effusion. Cover for Int Med-Dr Perez. Objective Last Vital Signs Date Time Temp Pulse Resp B/P Pulse Ox O2 Delivery O2 Flow Rate FiO2 08/18/16 10:45 94 18 Venturi Mask 8.0 40 08/18/16 06:31 97.5 95/45 100 Microbiology Date/Time Source Procedure Growth Status 08/16/16 11:15 Blood Blood Culture - Preliminary NO GROWTH AFTER 24 HOURS Resulted 08/16/16 11:00 Blood Blood Culture - Preliminary NO GROWTH AFTER 24 HOURS Resulted 08/16/16 18:22 Nasal Nares MRSA Culture - Final NO METHICILLIN RESISTANT STAPH AUREUS... Complete 08/17/16 04:00 Sacral Other Gram Stain - Final Resulted 08/17/16 04:00 Sacral Other Wound Culture - Preliminary Resulted 08/16/16 18:22 Rectum VRE Culture - Final NO VANCOMYCIN RESISTANT ENTEROCOCCUS ... Complete Intake and Output 08/17/16 08/18/16 19:00 07:00 Output Total 120 ml 200 ml Balance -120 ml -200 ml Output Urine Total 120 ml 200 ml Assessment/Plan Assessment/Plan Patient at 1645 REINALDO BACON Aug 18, 2016 17:20
--- NOTE | 2016-08-18 19:08 | General Progress Note ---
Progress Note Progress Note pt was seen earlier this morning, He looked very comfortable on morphine drip. Post mortem, pt was seen again. Condolences were offered to the daughter at the bed site. ADDIE BRIGGS Aug 18, 2016 19:08
--- NOTE | 2016-08-19 22:03 | Discharge Summary ---
Discharge Summary Hospital Course Date of Admission Aug 16, 2016 at 13:00 Date of Discharge Aug 18, 2016 at 16:44 Admitting Diagnosis SOB, ARF, hyperkalemia HPI Nas Fabiana Galvan is a 71 year old male who was admitted on Aug 16, 2016 at 13:00 for Short Of Breath, Acute Renal Failure, Hyperkalemia Hospital Course [id number] Discharge Discharge Disposition Patient Discharge Diagnoses: Mckenna Ortega NP Aug 19, 2016 22:03
--- NOTE | 2016-08-20 05:15 | Discharge Summary 2 SIG ---
DATE OF ADMISSION: 08/16/2016 DATE OF DISCHARGE: 08/18/2016 RETAIL GENERAL MANAGER: Tobi Carlton M.D. BRIEF SUMMARY: The patient is a 71-year-old, male, who presented to [facility] due to shortness of breath. He was recently admitted to [facility] and has a history of metastatic hepatocellular CA with metastasis to bone and also has a right lung mass. At the half-way, the patient became increasingly short of breath and was transferred to [place] emergency room where a chest x-ray revealed extensive right pleural effusion. The patient appeared terminal and family decided on comfort care. He was placed on BiPAP at ED. Daughter agreed with morphine drip and private room. All unnecessary medications and testing were discontinued and the patient was placed on morphine drip. The patient eventually . FINAL DIAGNOSES: 1. Right-sided pleural effusion. 2. Hepatocellular cancer with metastasis to bone. 3. Right lung mass. 4. Anemia of chronic disease. 5. Acute respiratory failure requiring BiPAP. 6. Congestive heart failure. 7. Ascites. 8. Hepatitis C. 9. Comfort care/palliative care. Reinaldo Gabriel M.D. I have been assigned to dictate discharge summary on this account and I was not involved in the patient's management. Mckenna Ortega N.P. DR: EVELIN JOB#: [id number] CC:
== END 2016-08-18 16:44 | disposition expired | DRG 186 ==
LOC: EDBD 10:23 → EMR 10:50 → EDBEDREQ 12:42 → EDBEDREQSVC 12:42 → 2W 13:00 → EDBEDREQSVC 15:00 → EDBEDREQ 16:32 → 4W 08-17 15:35
PROC: 5A0935Z Assistance with Respiratory Ventilation, Less than 24 Consecutive Hours (ICD-10-PCS; principal; 2016-08-17)
DX: J90 Pleural effusion, not elsewhere classified (principal); J96.01 Acute respiratory failure with hypoxia; I50.9 Heart failure, unspecified; N17.9 Acute kidney failure, unspecified; C79.51 Secondary malignant neoplasm of bone; R18.8 Other ascites; C22.0 Liver cell carcinoma; E11.22 Type 2 diabetes mellitus with diabetic chronic kidney disease; K74.60 Unspecified cirrhosis of liver; E87.5 Hyperkalemia; I48.91 Unspecified atrial fibrillation; B19.20 Unspecified viral hepatitis C without hepatic coma; Z66 Do not resuscitate; D63.1 Anemia in chronic kidney disease; D72.829 Elevated white blood cell count, unspecified; R91.8 Other nonspecific abnormal finding of lung field; I12.9 Hypertensive chronic kidney disease with stage 1 through stage 4 chronic kidney disease, or unspecified chronic kidney disease; N18.9 Chronic kidney disease, unspecified; Z79.84 Long term (current) use of oral hypoglycemic drugs; Z51.5 Encounter for palliative care
CPT/HCPCS: 36415; 36600; 71010; 80048; 80053; 81003; 82550; 82553; 82803; 82962; 83605; 83880; 84484; 85007; 85025; 87040; 87070; 87081; 87181; 87205; 93005; 94660; 94664; J2370